=== PATIENT | male | born 1985 | race Caucasian/White ===

== ENCOUNTER 2016-06-09 18:17 | Emergency (ER) | payer OTHER ==
[2016-06-09] MEDS ORDERED: SODIUM CHLORIDE 0.9% 1,000 ML IV ONE (20:07)
[2016-06-09] MEDS ORDERED: ONDANSETRON 4 MG/2 ML VIAL IVP STA (20:08)
--- NOTE | 2016-06-09 20:11 | ED ---
Nausea/Vomiting/Diarrhea HPI - General Chief complaint: Nausea/Vomiting/Diarrhea Stated complaint: Sick Time Seen by Provider: 06/09/16 19:55 Source: patient, RN notes reviewed Mode of arrival: ambulatory Limitations: no limitations - History of Present Illness Initial comments: Patient's 30-year-old male presents emergency room for evaluation of nausea and vomiting. Patient states symptoms began around 5 AM this morning. Patient states he's been unable to keep any food down. Patient states he's been feeling very nauseous and his abdomen is very uncomfortable from nausea but denies pain. Patient denies any surgeries in his abdomen. Patient denies any fevers or chills. Patient denies constipation or diarrhea. Patient denies trouble urinating, pain or burning during urination or blood in urine. Patient denies blood in stools. Patient denies recent travel outside the country. Patient denies sick contacts. Patient denies trying any new foods. Patient denies headache or dizziness. Patient states he's had nasal congestion for the past 3 days. Patient states also had a slight dry cough. Patient denies receiving the influenza vaccine this year. Patient denies throat pain or ear pain. Patient denies chest pain or shortness of breath. - Related Data Home Medications Medication Instructions Recorded Confirmed Buprenorphine HCl/Naloxone HCl 1 film SL BID 06/09/16 06/09/16 [Suboxone 8 mg-2 mg Sl Film] busPIRone HCL [Buspar] 7.5 mg PO BID 06/09/16 06/09/16 Previous Rx's Medication Instructions Recorded Ondansetron Odt [Zofran Odt] 4 mg PO Q8HR PRN #12 tab 06/09/16 Allergies Allergy/AdvReac Type Severity Reaction Status Date / Time No Known Allergies Allergy Verified 06/09/16 20:10 Review of Systems ROS Statement: Those systems with pertinent positive or pertinent negative responses have been documented in the HPI. ROS Other: All systems not noted in ROS Statement are negative. Past Medical History Past Medical History: No Reported History Additional Past Medical History / Comment(s): L2 FRACTURE; CHRONIC BACK PAIN History of Any Multi-Drug Resistant Organisms: None Reported Additional Past Surgical History / Comment(s): bilateral knees, right shoulder Past Psychological History: Anxiety Smoking Status: Current every day smoker Past Alcohol Use History: Rare Past Drug Use History: Heroin General Exam - General Exam Comments Initial Comments: Sitting in exam room in no acute distress. Limitations: no limitations General appearance: alert, in no apparent distress Head exam: Present: atraumatic, normocephalic, normal inspection Eye exam: Present: normal appearance ENT exam: Present: normal exam Neck exam: Present: normal inspection Respiratory exam: Present: normal lung sounds bilaterally. Absent: respiratory distress Cardiovascular Exam: Present: normal rhythm, tachycardia, normal heart sounds GI/Abdominal exam: Present: soft, normal bowel sounds. Absent: distended, tenderness, guarding, rebound, rigid Extremities exam: Present: normal inspection Back exam: Present: normal inspection Neurological exam: Present: alert, oriented X3, CN II-XII intact, normal gait Psychiatric exam: Present: normal affect, normal mood Skin exam: Present: warm, dry, intact, normal color. Absent: rash Course Vital Signs 06/09/16 06/09/16 18:19 22:48 Temperature 99.0 F 98.7 F Pulse Rate 108 H 91 Respiratory 20 18 Rate Blood Pressure 145/77 136/58 O2 Sat by Pulse 99 99 Oximetry Medical Decision Making - Medical Decision Making Patient is a 30-year-old male presents emergency room for evaluation of nausea and vomiting. Labs show no concerning findings. Drug screen urinalysis significant for barbiturates, methamphetamines, benzos, cocaine and marijuana. Discussed results with patient. Discussed with patient to refrain from polysubstance abuse. Patient will be sent home with Zoan as needed. Advised patient to return for worsening symptoms. Patient states he understands everything that was discussed with him. As discussed with Dr. Amaro. - Lab Data Result diagrams: 06/09/16 20:48 06/09/16 20:48 Lab Results 06/09/16 06/09/16 06/09/16 Range/Units 20:45 20:48 20:48 WBC 8.8 (3.8-10.6) k/uL RBC 5.15 (4.30-5.90) m/uL Hgb 14.8 (13.0-17.5) gm/dL Hct 44.9 (39.0-53.0) % MCV 87.2 (80.0-100.0) fL MCH 28.7 (25.0-35.0) pg MCHC 32.9 (31.0-37.0) g/dL RDW 12.8 (11.5-15.5) % Plt Count 263 (150-450) k/uL Neutrophils % 78 % Lymphocytes % 15 % Monocytes % 4 % Eosinophils % 1 % Basophils % 0 % Neutrophils # 6.9 (1.3-7.7) k/uL Lymphocytes # 1.3 (1.0-4.8) k/uL Monocytes # 0.4 (0-1.0) k/uL Eosinophils # 0.1 (0-0.7) k/uL Basophils # 0.0 (0-0.2) k/uL Sodium 139 (137-145) mmol/L Potassium 3.7 (3.5-5.1) mmol/L Chloride 102 (98-107) mmol/L Carbon Dioxide 21 L (22-30) mmol/L Anion Gap 16 mmol/L BUN 13 (9-20) mg/dL Creatinine 0.60 L (0.66-1.25) mg/dL Est GFR (MDRD) Af Amer >60 (>60 ml/min/1.73 sqM) Est GFR (MDRD) Non-Af >60 (>60 ml/min/1.73 sqM) Glucose 144 H (74-99) mg/dL Calcium 9.2 (8.4-10.2) mg/dL Magnesium 1.7 (1.6-2.3) mg/dL Total Bilirubin 0.4 (0.2-1.3) mg/dL AST 40 (17-59) U/L ALT 59 (21-72) U/L Alkaline Phosphatase 52 (38-126) U/L Total Protein 7.3 (6.3-8.2) g/dL Albumin 4.2 (3.5-5.0) g/dL Amylase <30 L (30-110) U/L Lipase 51 (23-300) U/L Urine Color Urine Appearance (Clear) Urine pH (5.0-8.0) Ur Specific [place] (1.001-1.035) Urine Protein (Negative) Urine Glucose (UA) (Negative) Urine Ketones (Negative) Urine Blood (Negative) Urine Nitrite (Negative) Urine Bilirubin (Negative) Urine Urobilinogen (<2.0) mg/dL Ur Leukocyte Esterase (Negative) Urine WBC (0-5) /hpf Ur Squamous Epith Cells (0-4) /hpf Amorphous Sediment (None) /hpf Urine Mucus (None) /hpf Urine Opiates Screen (NotDetected) Ur Oxycodone Screen (NotDetected) Urine Methadone Screen (NotDetected) Ur Propoxyphene Screen (NotDetected) Ur Barbiturates Screen (NotDetected) U Tricyclic Antidepress (NotDetected) Ur Phencyclidine Scrn (NotDetected) Ur Amphetamines Screen (NotDetected) U Methamphetamines Scrn (NotDetected) U Benzodiazepines Scrn (NotDetected) Urine Cocaine Screen (NotDetected) U Marijuana (THC) Screen (NotDetected) Influenza Type A RNA Not Detected (Not Detectd) Influenza Type B (PCR) Not Detected (Not Detectd) 06/09/16 06/09/16 Range/Units 20:48 20:48 WBC (3.8-10.6) k/uL RBC (4.30-5.90) m/uL Hgb (13.0-17.5) gm/dL Hct (39.0-53.0) % MCV (80.0-100.0) fL MCH (25.0-35.0) pg MCHC (31.0-37.0) g/dL RDW (11.5-15.5) % Plt Count (150-450) k/uL Neutrophils % % Lymphocytes % % Monocytes % % Eosinophils % % Basophils % % Neutrophils # (1.3-7.7) k/uL Lymphocytes # (1.0-4.8) k/uL Monocytes # (0-1.0) k/uL Eosinophils # (0-0.7) k/uL Basophils # (0-0.2) k/uL Sodium (137-145) mmol/L Potassium (3.5-5.1) mmol/L Chloride (98-107) mmol/L Carbon Dioxide (22-30) mmol/L Anion Gap mmol/L BUN (9-20) mg/dL Creatinine (0.66-1.25) mg/dL Est GFR (MDRD) Af Amer (>60 ml/min/1.73 sqM) Est GFR (MDRD) Non-Af (>60 ml/min/1.73 sqM) Glucose (74-99) mg/dL Calcium (8.4-10.2) mg/dL Magnesium (1.6-2.3) mg/dL Total Bilirubin (0.2-1.3) mg/dL AST (17-59) U/L ALT (21-72) U/L Alkaline Phosphatase (38-126) U/L Total Protein (6.3-8.2) g/dL Albumin (3.5-5.0) g/dL Amylase (30-110) U/L Lipase (23-300) U/L Urine Color Yellow Urine Appearance Turbid (Clear) Urine pH 5.5 (5.0-8.0) Ur Specific [place] 1.032 (1.001-1.035) Urine Protein 1+ H (Negative) Urine Glucose (UA) 2+ H (Negative) Urine Ketones 1+ H (Negative) Urine Blood Negative (Negative) Urine Nitrite Negative (Negative) Urine Bilirubin Negative (Negative) Urine Urobilinogen <2.0 (<2.0) mg/dL Ur Leukocyte Esterase Small H (Negative) Urine WBC 6 H (0-5) /hpf Ur Squamous Epith Cells 4 (0-4) /hpf Amorphous Sediment Many H (None) /hpf Urine Mucus Many H (None) /hpf Urine Opiates Screen Not Detected (NotDetected) Ur Oxycodone Screen Not Detected (NotDetected) Urine Methadone Screen Not Detected (NotDetected) Ur Propoxyphene Screen Not Detected (NotDetected) Ur Barbiturates Screen Detected H (NotDetected) U Tricyclic Antidepress Not Detected (NotDetected) Ur Phencyclidine Scrn Not Detected (NotDetected) Ur Amphetamines Screen Not Detected (NotDetected) U Methamphetamines Scrn Detected H (NotDetected) U Benzodiazepines Scrn Detected H (NotDetected) Urine Cocaine Screen Detected H (NotDetected) U Marijuana (THC) Screen Detected H (NotDetected) Influenza Type A RNA (Not Detectd) Influenza Type B (PCR) (Not Detectd) - Radiology Data Radiology results: report reviewed, image reviewed Disposition Clinical Impression: Polysubstance abuse, Nausea and vomiting Disposition: HOME SELF-CARE Condition: Good Instructions: Acute Nausea and Vomiting (ED) Additional Instructions: Take Zofran as needed for nausea. Drink plenty of fluids. Please follow up with primary care provider in 1-2 days. If any new symptom arises or symptoms worsen, return to ER as soon as possible. Prescriptions: Ondansetron Odt [Zofran Odt] 4 mg PO Q8HR PRN #12 tab PRN Reason: Nausea Referrals: Jake Resendiz DO [Primary Care Provider] - 1-2 days Time of Disposition: 22:24
[2016-06-09 20:57] LABS: Basophils % (A) 0 %; CH 28.7; Eosinophils # (A) 0.1 k/uL (0-0.7); Eosinophils % (A) 1 %; HCT 44.9 % (39.0-53.0); HDW 2.59; HGB 14.8 gm/dL (13.0-17.5); Luc # (Auto) 0.14; Luc % (Auto) 2; Lymphocytes # (A) 1.3 k/uL (1.0-4.8); Lymphocytes % (A) 15 %; MCH 28.7 pg (25.0-35.0); MCHC 32.9 g/dL (31.0-37.0); MCV 87.2 fL (80.0-100.0); Mean Platelet Volume 7.1; Monocytes # (A) 0.4 k/uL (0-1.0); Monocytes % (A) 4 %; Neutrophils # (A) 6.9 k/uL (1.3-7.7); Neutrophils % (A) 78 %; RBC 5.15 m/uL (4.30-5.90); RDW 12.8 % (11.5-15.5); WBC 8.8 k/uL (3.8-10.6); WBC (Perox) 9.04
[2016-06-09 21:06] LABS: Amorphous Sediment,Urine Many /hpf; Appearance,Urine Turbid (Clear); Bilirubin,Urine Negative (Negative); Glucose,Urine (UA) 2+ (Negative); Ketones,Urine 1+ (Negative); Leukocyte Esterase,Urine Small (Negative); Mucus,Urine Many /hpf; Nitrite,Urine Negative (Negative); PH, Urine 5.5 (5.0-8.0); Particle Count 360590; Protein,Urine 1+ (Negative); Specific Gravity,Urine 1.032 (1.001-1.035); Squamous Epithelial Cell,Urine 4 /hpf (0-4); UA Billing (MACRO vs. MICRO) MICRO; Urobilinogen,Urine <2.0 mg/dL (<2.0); WBC,Urine 6 /hpf (0-5)
[2016-06-09 21:10] LABS: Amylase <30 U/L (30-110); Anion Gap 16 mmol/L; Calcium 9.2 mg/dL (8.4-10.2); Carbon Dioxide 21 mmol/L (22-30); Chloride 102 mmol/L (98-107); Glucose 144 mg/dL (74-99); Non-African American GFR(MDRD) >60 (>60 ml/min/1.73 sqM); Sodium 139 mmol/L (137-145); Total Bilirubin 0.4 mg/dL (0.2-1.3); Total Protein 7.3 g/dL (6.3-8.2)
[2016-06-09 21:18] LABS: Potassium 3.7 mmol/L (3.5-5.1)
[2016-06-09 21:19] LABS: ALT 59 U/L (21-72); AST 40 U/L (17-59); Alkaline Phosphatase 52 U/L (38-126); Blood Urea Nitrogen 13 mg/dL (9-20); Magnesium 1.7 mg/dL (1.6-2.3)
--- NOTE | 2016-06-09 21:56 | XR ---
EXAMINATION TYPE: XR KUB DATE OF EXAM: 06/09/2016 9:35 PM COMPARISON: NONE INDICATION: Pain vomiting TECHNIQUE: Single view abdomen upright view FINDINGS: There is a normal bowel gas pattern. Psoas margins are normal. No organomegaly is present. Two tablets are within the mid abdomen. No free air is evident. No differential air-fluid levels are present. IMPRESSION: 1. Unremarkable Abdomen
[2016-06-09 22:53] VITALS: BP 136/58; PULSE 91; RESP 18; TEMP 98.7
== END 2016-06-09 22:55 | disposition home or self-care (01) ==
LOC: EC 18:17
DX: F19.10 Other psychoactive substance abuse, uncomplicated (principal); R11.2 Nausea with vomiting, unspecified; R05 Cough; R09.81 Nasal congestion; F41.9 Anxiety disorder, unspecified; F17.200 Nicotine dependence, unspecified, uncomplicated; Z79.51 Long term (current) use of inhaled steroids; Z79.899 Other long term (current) drug therapy
CPT/HCPCS: 36415; 80053; 82150; 83690; 83735; 85025; 81001; 80306; 87502; 74000; 99284; 96374; 96361 ×2; J2405

== ENCOUNTER 2016-07-06 14:42 | Emergency (ER) | payer OTHER ==
[2016-07-06] MEDS ORDERED: ONDANSETRON 4 MG/2 ML VIAL IVP STA (15:35)
[2016-07-06] MEDS ORDERED: SODIUM CHLORIDE 0.9% 1,000 ML IV ONE (15:35)
[2016-07-06] MEDS ORDERED: ACETAMINOPHEN IV (For NPO) 1,000 MG in EMPTY BAG 1 BAG IVPB STA (15:36)
[2016-07-06 16:24] LABS: Basophils # (A) 0.1 k/uL (0-0.2); Basophils % (A) 1 %; CH 28.4; CHCM 32.9; Eosinophils # (A) 0.2 k/uL (0-0.7); Eosinophils % (A) 1 %; HCT 45.8 % (39.0-53.0); HDW 2.47; HGB 14.8 gm/dL (13.0-17.5); Immature Gran Flag Slight; Luc # (Auto) 0.16; Luc % (Auto) 1; Lymphocytes # (A) 0.6 k/uL (1.0-4.8); Lymphocytes % (A) 4 %; MCH 28.1 pg (25.0-35.0); MCHC 32.4 g/dL (31.0-37.0); MCV 86.8 fL (80.0-100.0); Mean Platelet Volume 7.3; Monocytes # (A) 0.6 k/uL (0-1.0); Monocytes % (A) 4 %; Neutrophils % (A) 90 %; RBC 5.28 m/uL (4.30-5.90); RDW 12.8 % (11.5-15.5); WBC 16.7 k/uL (3.8-10.6); WBC (Perox) 17.19
--- NOTE | 2016-07-06 16:33 | XR ---
EXAMINATION TYPE: XR chest 2V DATE OF EXAM: 07/06/2016 4:28 PM COMPARISON: 03/02/2011 INDICATION: Unresponsive acute mental status changes TECHNIQUE: Single frontal view of the chest is obtained. FINDINGS: The heart size is normal. The pulmonary vasculature is normal. There is a patchy consolidation in the right lower lobe. Correlate for pneumonia. Follow-up to [facility] is recommended. IMPRESSION: 1. Right lower lobe patchy infiltrate can be compatible with pneumonia. Follow-up is recommended.
[2016-07-06 16:35] LABS: ALT 63 U/L (21-72); AST 34 U/L (17-59); Alkaline Phosphatase 59 U/L (38-126); Anion Gap 11 mmol/L; Blood Urea Nitrogen 14 mg/dL (9-20); Calcium 9.6 mg/dL (8.4-10.2); Carbon Dioxide 22 mmol/L (22-30); Chloride 107 mmol/L (98-107); Glucose 151 mg/dL (74-99); Non-African American GFR(MDRD) >60 (>60 ml/min/1.73 sqM); Potassium 4.3 mmol/L (3.5-5.1); Sodium 140 mmol/L (137-145); Total Bilirubin 0.6 mg/dL (0.2-1.3); Total Protein 7.3 g/dL (6.3-8.2)
[2016-07-06] MEDS ORDERED: LEVOFLOXACIN 750 MG TAB PO STA (17:04)
--- NOTE | 2016-07-06 17:05 | ED ---
General Adult HPI - General Chief complaint: Nausea/Vomiting/Diarrhea Stated complaint: Vomiting Source: patient, family Mode of arrival: wheelchair Limitations: no limitations - History of Present Illness Initial comments: 30-year-old male with past medical history of heroin abuse as well as poly-pharmacy abuse presented for evaluation of overdose. His significant other was at the bedside states that he used heroin this morning at around 9:00 as well as took a handful benzos are there was no intention hurt himself but since then he has been less responsive and sleeping consistently. Patient is arousable and is able to answer questions although he immediately falls back to sleep. His significant other states that while he was sleeping he had an episode of emesis with some of it coming out of his nose. She states he did not appear to choke on it but that it just started coming out. She leaned him forward and he was able to wake up and continue blowing the rest of the spots/ emesis out of his nose and airway. After hearing her describe further this physician is unsure if it was actually emesis and whether or not it was just sputum. - Related Data Home Medications Medication Instructions Recorded Confirmed Buprenorphine HCl/Naloxone HCl 1 film SL BID 06/09/16 07/06/16 [Suboxone 8 mg-2 mg Sl Film] busPIRone HCL [Buspar] 7.5 mg PO BID 06/09/16 07/06/16 Previous Rx's Medication Instructions Recorded Ondansetron Odt [Zofran Odt] 4 mg PO Q8HR PRN #12 tab 06/09/16 Clotrimazole Topical Soln [Mycelex 1 applic TOPICAL BID #1 tube 07/06/16 Topical Soln] Clotrimazole [Lotrimin AF] 1 applic TOPICAL BID #1 tube 07/06/16 Levofloxacin [Levaquin] 750 mg PO DAILY #4 tab 07/06/16 Allergies Allergy/AdvReac Type Severity Reaction Status Date / Time No Known Allergies Allergy Verified 07/06/16 15:34 Review of Systems ROS Statement: Those systems with pertinent positive or pertinent negative responses have been documented in the HPI. ROS Other: All systems not noted in ROS Statement are negative. Constitutional: Reports: weakness (Generalized). Denies: fever, chills Eyes: Denies: eye pain, eye discharge, vision change ENT: Denies: ear pain, throat pain Respiratory: Denies: cough, dyspnea Cardiovascular: Denies: chest pain, palpitations, dyspnea on exertion, orthopnea Endocrine: Denies: fatigue, polydipsia, polyuria Gastrointestinal: Reports: nausea, vomiting. Denies: abdominal pain Genitourinary: Denies: urgency Musculoskeletal: Denies: back pain, arthralgia, myalgia Skin: Reports: rash (Behind the left ear). Denies: lesions Neurological: Denies: headache, weakness, numbness, paresthesias, confusion Psychiatric: Denies: anxiety, depression Hematological/Lymphatic: Denies: easy bleeding, easy bruising Past Medical History Past Medical History: No Reported History Additional Past Medical History / Comment(s): L2 FRACTURE; CHRONIC BACK PAIN History of Any Multi-Drug Resistant Organisms: None Reported Additional Past Surgical History / Comment(s): bilateral knees, right shoulder Past Psychological History: Anxiety Smoking Status: Current every day smoker Past Alcohol Use History: Rare Past Drug Use History: Heroin, Prescription Drug Abuse General Exam Limitations: no limitations General appearance: alert, in no apparent distress, other (Patient appears high) Head exam: Present: atraumatic, normocephalic, normal inspection Eye exam: Present: normal appearance, PERRL, EOMI. Absent: scleral icterus, conjunctival injection, periorbital swelling ENT exam: Present: normal exam, mucous membranes moist Neck exam: Present: normal inspection. Absent: tenderness, meningismus, lymphadenopathy Respiratory exam: Present: normal lung sounds bilaterally. Absent: respiratory distress, wheezes, rales, rhonchi, stridor Cardiovascular Exam: Present: regular rate, normal rhythm, normal heart sounds. Absent: systolic murmur, diastolic murmur, rubs, gallop, clicks GI/Abdominal exam: Present: soft, normal bowel sounds. Absent: distended, tenderness, guarding, rebound, rigid Rectal exam: Present: deferred Extremities exam: Present: normal inspection, full ROM, normal capillary refill. Absent: tenderness, pedal edema, joint swelling, calf tenderness Back exam: Present: normal inspection Neurological exam: Present: alert, oriented X3, CN II-XII intact, other ( Patient continues to fall asleep but when he is woken up using a 3) Psychiatric exam: Present: normal affect, normal mood Skin exam: Present: warm, dry, intact, normal color. Absent: rash Course Vital Signs 07/06/16 07/06/16 07/06/16 14:55 16:29 17:07 Temperature 101.0 F H 100.5 F H Pulse Rate 119 H 105 H 78 Respiratory 20 16 16 Rate Blood Pressure 134/73 116/59 107/74 O2 Sat by Pulse 94 L 95 98 Oximetry 07/06/16 18:22 Temperature 98.2 F Pulse Rate 78 Respiratory 20 Rate Blood Pressure 115/56 O2 Sat by Pulse 98 Oximetry EKG Findings - EKG Comments: EKG Findings:: Sinus tachycardia with a ventricular rate of 106, TAMANNA 142, QRS 98 , QT/QTC 322/427 Medical Decision Making - Medical Decision Making 30-year-old male presented for evaluation of heroin abuse and decreased responsiveness. His significant other states that he use this morning as well as took some benzos and has been less responsive since. There is also an episode of him blowing significant amounts of sputum and snot out of his nose. On physical examination the patient does appear to be sleeping in the bed but when stimulated he is able to wake up and answer all questions appropriately however he immediately falls back asleep. Her main or of his physical exam is benign with the exception of a rash behind his left ear. Given that the patient is protecting his own airway there is no indication to give Narcan at this time. We'll obtain EKG, chest x-ray, labs, and provide IV fluids. Labs revealed a leukocytosis of 16.7. Otherwise no significant abnormalities. Chest x-ray shows a right lower lobe patchy infiltrate can be compatible with pneumonia. Patient treated with his first dose of antibiotic here in the department and he was gone up from the bed and walked around the department without difficulty. Patient and his significant other were offered admission versus discharge and through shared decision making it was determined that he would be discharged with instruction to follow-up with his primary care physician but to return to this facility if his symptoms should worsen or persist. The patient acknowledged an understanding of this information as that his significant other and agreed with this plan of care. - Lab Data Result diagrams: 07/06/16 16:00 07/06/16 16:00 Lab Results 07/06/16 07/06/16 07/06/16 Range/Units 16:00 16:00 16:00 WBC 16.7 H (3.8-10.6) k/uL RBC 5.28 (4.30-5.90) m/uL Hgb 14.8 (13.0-17.5) gm/dL Hct 45.8 (39.0-53.0) % MCV 86.8 (80.0-100.0) fL MCH 28.1 (25.0-35.0) pg MCHC 32.4 (31.0-37.0) g/dL RDW 12.8 (11.5-15.5) % Plt Count 243 (150-450) k/uL Neutrophils % 90 % Lymphocytes % 4 % Monocytes % 4 % Eosinophils % 1 % Basophils % 1 % Neutrophils # 15.0 H (1.3-7.7) k/uL Lymphocytes # 0.6 L (1.0-4.8) k/uL Monocytes # 0.6 (0-1.0) k/uL Eosinophils # 0.2 (0-0.7) k/uL Basophils # 0.1 (0-0.2) k/uL Sodium 140 (137-145) mmol/L Potassium 4.3 (3.5-5.1) mmol/L Chloride 107 (98-107) mmol/L Carbon Dioxide 22 (22-30) mmol/L Anion Gap 11 mmol/L BUN 14 (9-20) mg/dL Creatinine 0.90 (0.66-1.25) mg/dL Est GFR (MDRD) Af Amer >60 (>60 ml/min/1.73 sqM) Est GFR (MDRD) Non-Af >60 (>60 ml/min/1.73 sqM) Glucose 151 H (74-99) mg/dL Plasma Lactic Acid Prashanth 2.0 (0.7-2.0) mmol/L Calcium 9.6 (8.4-10.2) mg/dL Total Bilirubin 0.6 (0.2-1.3) mg/dL AST 34 (17-59) U/L ALT 63 (21-72) U/L Alkaline Phosphatase 59 (38-126) U/L Total Protein 7.3 (6.3-8.2) g/dL Albumin 4.0 (3.5-5.0) g/dL Lipase 57 (23-300) U/L Disposition Clinical Impression: Pneumonia, Heroin abuse, Polysubstance abuse, Nausea and vomiting Disposition: HOME SELF-CARE Condition: Stable Instructions: Community Acquired Pneumonia (ED), Narcotic Abuse (ED) Additional Instructions: Please use medication as discussed. Please follow up with family doctor if symptoms have not improved over the next two days. Please return to the emergency room if your symptoms increase or worsen or for any other concerns. Prescriptions: Clotrimazole [Lotrimin AF] 1 applic TOPICAL BID #1 tube Clotrimazole Topical Soln [Mycelex Topical Soln] 1 applic TOPICAL BID #1 tube Levofloxacin [Levaquin] 750 mg PO DAILY #4 tab Referrals: Jake Resendiz DO [Primary Care Provider] - 1-2 days Time of Disposition: 17:05
[2016-07-06 17:08] VITALS: PULSE 78
[2016-07-06 18:23] VITALS: BP 115/56; RESP 20; TEMP 98.2
== END 2016-07-06 18:23 | disposition home or self-care (01) ==
LOC: EC 14:42
DX: J18.9 Pneumonia, unspecified organism (principal); F19.10 Other psychoactive substance abuse, uncomplicated; R11.2 Nausea with vomiting, unspecified; F11.10 Opioid abuse, uncomplicated; F41.9 Anxiety disorder, unspecified; F17.200 Nicotine dependence, unspecified, uncomplicated; Z79.899 Other long term (current) drug therapy
CPT/HCPCS: 99284; 96365; 96375; 36415; 93005; 80053; 83605; 83690; 85025; 71020; J2405; J0131

== ENCOUNTER 2016-09-19 17:50 | Emergency (ER) | payer OTHER ==
[2016-09-19] MEDS ORDERED: SODIUM CHLORIDE 0.9% 1,000 ML IV STA (18:04)
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
[2016-09-19 19:02] LABS: ALT 47 U/L (21-72); AST 25 U/L (17-59); Acetaminophen <10.0 ug/mL; Alcohol <10 mg/dL; Alkaline Phosphatase 73 U/L (38-126); Anion Gap 11 mmol/L; Blood Urea Nitrogen 12 mg/dL (9-20); Calcium 9.4 mg/dL (8.4-10.2); Carbon Dioxide 26 mmol/L (22-30); Chloride 109 mmol/L (98-107); Glucose 78 mg/dL (74-99); Non-African American GFR(MDRD) >60 (>60 ml/min/1.73 sqM); Potassium 3.9 mmol/L (3.5-5.1); Salicylate <1.0 mg/dL; Sodium 146 mmol/L (137-145); Total Bilirubin 0.4 mg/dL (0.2-1.3); Total Protein 7.4 g/dL (6.3-8.2)
[2016-09-19 19:04] LABS: Basophils # (A) 0.1 k/uL (0-0.2); Basophils % (A) 1 %; CH 28.4; CHCM 34.2; Eosinophils # (A) 0.3 k/uL (0-0.7); Eosinophils % (A) 4 %; HCT 42.9 % (39.0-53.0); HDW 2.78; HGB 14.8 gm/dL (13.0-17.5); Luc # (Auto) 0.35; Luc % (Auto) 4; Lymphocytes # (A) 2.6 k/uL (1.0-4.8); Lymphocytes % (A) 34 %; MCH 28.8 pg (25.0-35.0); MCHC 34.5 g/dL (31.0-37.0); MCV 83.5 fL (80.0-100.0); Mean Platelet Volume 7.5; Monocytes # (A) 0.6 k/uL (0-1.0); Monocytes % (A) 7 %; Neutrophils # (A) 3.9 k/uL (1.3-7.7); Neutrophils % (A) 50 %; RBC 5.14 m/uL (4.30-5.90); RDW 13.6 % (11.5-15.5); WBC 7.8 k/uL (3.8-10.6); WBC (Perox) 7.72
--- NOTE | 2016-09-19 19:11 | CT ---
EXAMINATION TYPE: CT brain scoobyine wo con DATE OF EXAM: 09/19/2016 COMPARISON: 11/05/2013 HISTORY: Fall injury yesterday. Laceration to left zygoma area. CT DLP: 1259.6 mGycm Automated exposure control for dose reduction was used. TECHNIQUE: CT scan of the head and cervical spine are performed without contrast. FINDINGS: Ventricles and sulci appear normal. There is no mass effect nor midline shift. There is n o sign of intracranial hemorrhage. The calvarium is intact. The cervical vertebra have normal spacing and alignment. Posterior elements are intact. Facet joints are intact. There is no sign of a fracture. IMPRESSION: Negative CT scan of the brain. Negative CT scan of the cervical spine.
--- NOTE | 2016-09-19 19:14 | CT ---
EXAMINATION TYPE: CT facial bones wo con DATE OF EXAM: 09/19/2016 COMPARISON: NONE HISTORY: Fall injury yesterday. Laceration to left zygoma area. CT DLP: 581.4 mGycm Automated exposure control for dose reduction was used. TECHNIQUE: CT scan of the sinuses is performed without contrast, axial images are obtained, coronal r eformatted images are also reviewed. FINDINGS: The mandibular ring appears intact. Nasal bone appears intact. Zygomatic arches appear norm al. There is no evidence of retro-orbital mass. There is no sign of a blowout fracture. There is a sm all mucous retention cyst at the floor of the left maxillary sinus. Maxilla is intact. The lateral so ft tissues of the face are not entirely included on this exam. There is bilateral patency of the osti omeatal complex. IMPRESSION: Negative CT scan of the facial bones. No fracture.
--- NOTE | 2016-09-19 20:13 | ED ---
Medical Decision Making - Medical Decision Making Patient was going to sign out AMA but he decided last minute not to. At this time he did stay for results. We did discuss the x-ray results. We did give him information for follow-up for drug addiction. Patient stated that he understood he is agreement plan. Patient is alert and oriented in the room speaking full sentences. Mother is with the patient at bedside and they do feel comfortable with discharge. - Lab Data Result diagrams: 09/19/16 18:40 09/19/16 18:40 Lab Results 09/19/16 09/19/16 09/19/16 Range/Units 18:40 18:40 18:52 WBC 7.8 (3.8-10.6) k/uL RBC 5.14 (4.30-5.90) m/uL Hgb 14.8 (13.0-17.5) gm/dL Hct 42.9 (39.0-53.0) % MCV 83.5 (80.0-100.0) fL MCH 28.8 (25.0-35.0) pg MCHC 34.5 (31.0-37.0) g/dL RDW 13.6 (11.5-15.5) % Plt Count 281 (150-450) k/uL Neutrophils % 50 % Lymphocytes % 34 % Monocytes % 7 % Eosinophils % 4 % Basophils % 1 % Neutrophils # 3.9 (1.3-7.7) k/uL Lymphocytes # 2.6 (1.0-4.8) k/uL Monocytes # 0.6 (0-1.0) k/uL Eosinophils # 0.3 (0-0.7) k/uL Basophils # 0.1 (0-0.2) k/uL Sodium 146 H (137-145) mmol/L Potassium 3.9 (3.5-5.1) mmol/L Chloride 109 H (98-107) mmol/L Carbon Dioxide 26 (22-30) mmol/L Anion Gap 11 mmol/L BUN 12 (9-20) mg/dL Creatinine 0.86 (0.66-1.25) mg/dL Est GFR (MDRD) Af Amer >60 (>60 ml/min/1.73 sqM) Est GFR (MDRD) Non-Af >60 (>60 ml/min/1.73 sqM) Glucose 78 (74-99) mg/dL Calcium 9.4 (8.4-10.2) mg/dL Total Bilirubin 0.4 (0.2-1.3) mg/dL AST 25 (17-59) U/L ALT 47 (21-72) U/L Alkaline Phosphatase 73 (38-126) U/L Total Protein 7.4 (6.3-8.2) g/dL Albumin 4.3 (3.5-5.0) g/dL Salicylates <1.0 mg/dL Urine Opiates Screen Detected H (NotDetected) Ur Oxycodone Screen Not Detected (NotDetected) Urine Methadone Screen Not Detected (NotDetected) Ur Propoxyphene Screen Not Detected (NotDetected) Acetaminophen <10.0 ug/mL Ur Barbiturates Screen Not Detected (NotDetected) U Tricyclic Antidepress Not Detected (NotDetected) Ur Phencyclidine Scrn Not Detected (NotDetected) Ur Amphetamines Screen Detected H (NotDetected) U Methamphetamines Scrn Detected H (NotDetected) U Benzodiazepines Scrn Detected H (NotDetected) Urine Cocaine Screen Not Detected (NotDetected) U Marijuana (THC) Screen Detected H (NotDetected) Serum Alcohol <10 mg/dL Disposition Clinical Impression: Drug abuse, Facial contusion Disposition: HOME SELF-CARE Condition: Stable Instructions: Polysubstance Abuse (ED) Additional Instructions: Please follow up with family doctor if symptoms have not improved over the next two days. Please return to the emergency room if your symptoms increase or worsen or for any other concerns. Referrals: Jake Resendiz DO [Primary Care Provider] - 1-2 days Time of Disposition: 20:13
[2016-09-19 20:25] VITALS: BP 125/58; PULSE 107; RESP 16; TEMP 98
== END 2016-09-19 20:37 | disposition home or self-care (01) ==
LOC: EC 17:50
DX: F11.10 Opioid abuse, uncomplicated (principal); S00.83XA Contusion of other part of head, initial encounter; W51.XXXA Accidental striking against or bumped into by another person, initial encounter
CPT/HCPCS: 36415; 70450; 70486; 72125; 80053; 80306; 80320; 83520; 85025; 96360; 96361; 99284

== ENCOUNTER 2017-12-25 08:58 | Emergency (ER) | payer OTHER ==
--- NOTE | 2017-12-25 09:25 | ED ---
Psych HPI - General Chief Complaint: Psychiatric Symptoms Stated Complaint: mental health Time Seen by Provider: 12/25/17 09:10 Source: patient, RN notes reviewed Mode of arrival: ambulatory Limitations: no limitations - History of Present Illness Initial Comments: this a 32-year-old male presents emergency Department chief complaint psychiatric evaluation. Patient was picked up on car ordered petition filled out by his mother. Patient states that he does not believe this is his mother' s signature or discharge, some signature. Patient states he has not made any threats though he has been in arguments with his girlfriend and mother. Patient states he has no suicidal or homicidal ideations. Patient denies any physical complaints. Patient states that he does take Xanax and is a history of drug abuse. Denies any alcohol abuse. - Related Data Home Medications Medication Instructions Recorded Confirmed ALPRAZolam [Xanax] 1 mg PO DAILY 12/25/17 12/25/17 Allergies Allergy/AdvReac Type Severity Reaction Status Date / Time No Known Allergies Allergy Verified 12/25/17 10:03 Review of Systems ROS Statement: Those systems with pertinent positive or pertinent negative responses have been documented in the HPI. ROS Other: All systems not noted in ROS Statement are negative. Past Medical History Past Medical History: No Reported History Additional Past Medical History / Comment(s): L2 FRACTURE; CHRONIC BACK PAIN History of Any Multi-Drug Resistant Organisms: None Reported Additional Past Surgical History / Comment(s): bilateral knees, right shoulder Past Psychological History: Anxiety Smoking Status: Current every day smoker Past Alcohol Use History: Rare Past Drug Use History: Heroin, Prescription Drug Abuse General Exam Limitations: no limitations General appearance: alert, in no apparent distress Head exam: Present: atraumatic, normocephalic, normal inspection Eye exam: Present: normal appearance, PERRL, EOMI. Absent: scleral icterus, conjunctival injection, periorbital swelling ENT exam: Present: normal exam, mucous membranes moist Neck exam: Present: normal inspection. Absent: tenderness, meningismus, lymphadenopathy Respiratory exam: Present: normal lung sounds bilaterally. Absent: respiratory distress, wheezes, rales, rhonchi, stridor Cardiovascular Exam: Present: normal rhythm, tachycardia, normal heart sounds. Absent: systolic murmur, diastolic murmur, rubs, gallop, clicks GI/Abdominal exam: Present: soft, normal bowel sounds. Absent: distended, tenderness, guarding, rebound, rigid Neurological exam: Present: alert, oriented X3, CN II-XII intact Psychiatric exam: Present: anxious Course Vital Signs 12/25/17 09:06 Temperature 98.2 F Pulse Rate 116 H Respiratory 18 Rate Blood Pressure 130/83 O2 Sat by Pulse 99 Oximetry Medical Decision Making - Medical Decision Making 32-year-old male presents emergency from for psychiatric evaluation and ankle or petition. He was evaluated by EPS case discussed with psychiatrist psychiatrist recommends patient to be discharged. Patient does have mild paranoia though this is most likely drug-induced. Patient is not suicidal or homicidal and will be discharged. Disposition Clinical Impression: Acute anxiety, Paranoia Disposition: HOME SELF-CARE Condition: Stable Instructions: Anxiety (ED) Additional Instructions: Please return to the Emergency Department if symptoms worsen or any other concerns. Is patient prescribed a controlled substance at d/c from ED?: No Referrals: Jake Resendiz DO [Primary Care Provider] - 1-2 days Time of Disposition: 12:15
[2017-12-25 12:22] VITALS: BP 143/89; PULSE 111; RESP 19; TEMP 96.4
== END 2017-12-25 12:23 | disposition home or self-care (01) ==
LOC: EC 08:58
DX: F22 Delusional disorders (principal); F41.9 Anxiety disorder, unspecified; F17.200 Nicotine dependence, unspecified, uncomplicated; Z79.899 Other long term (current) drug therapy
CPT/HCPCS: 82075; 99284

== ENCOUNTER 2017-12-31 12:54 | Inpatient (IN) | payer MEDICAID, OTHER ==
--- NOTE | 2017-12-31 13:39 | ED ---
General Adult HPI - General Chief complaint: Psychiatric Symptoms Stated complaint: Mental Health /petition Time Seen by Provider: 12/31/17 13:00 Source: patient, police, RN notes reviewed Mode of arrival: ambulatory Limitations: no limitations - History of Present Illness Initial comments: This is a 32-year-old male who has been brought in under a petition because he' s been delusional. Patient does state that there has been somewhat up in the attic and no one will tell was living in the attic. Patient also believes that either his mother and girlfriend has a lottery ticket were $[id number]. Patient states no one will tell him where the money is. Patient states he does think there are people after him but he doesn't know who they are. Patient denies any suicidal homicidal thoughts. Patient denies any drug use or alcohol use. Patient denies any physical complaints today. - Related Data Home Medications Medication Instructions Recorded Confirmed Cholecalciferol (Vitamin D3) 2,000 unit PO DAILY 12/31/17 12/31/17 [Vitamin D3] Multivitamins, Thera [Multivitamin 1 tab PO DAILY 12/31/17 12/31/17 (formulary)] Allergies Allergy/AdvReac Type Severity Reaction Status Date / Time No Known Allergies Allergy Verified 12/31/17 13:22 Review of Systems ROS Statement: Those systems with pertinent positive or pertinent negative responses have been documented in the HPI. ROS Other: All systems not noted in ROS Statement are negative. Past Medical History Past Medical History: No Reported History Additional Past Medical History / Comment(s): L2 FRACTURE; CHRONIC BACK PAIN History of Any Multi-Drug Resistant Organisms: None Reported Additional Past Surgical History / Comment(s): bilateral knees, right shoulder Past Psychological History: Anxiety Smoking Status: Current every day smoker Past Alcohol Use History: Rare Past Drug Use History: Heroin, Prescription Drug Abuse General Exam - General Exam Comments Initial Comments: GENERAL: Patient is well-developed and well-nourished. Patient is nontoxic and well- hydrated and is in mild distress. ENT: Neck is soft and supple. No significant lymphadenopathy is noted. Oropharynx is clear. Moist mucous membranes. Neck has full range of motion without eliciting any pain. EYES: The sclera were anicteric and conjunctiva were pink and moist. Extraocular movements were intact and pupils were equal round and reactive to light. Eyelids were unremarkable. PULMONARY: Unlabored respirations. Good breath sounds bilaterally. No audible rales rhonchi or wheezing was noted. CARDIOVASCULAR: There is a regular rate and rhythm without any murmurs gallops or rubs. ABDOMEN: Soft and nontender with normal bowel sounds. No palpable organomegaly was noted. There is no palpable pulsatile mass. SKIN: Skin is clear with no lesions or rashes and otherwise unremarkable. NEUROLOGIC: Patient is alert and oriented x3. Cranial nerves II through XII are grossly intact. Motor and sensory are also intact. Normal speech, volume and content. Symmetrical smile. MUSCULOSKELETAL: Normal extremities with adequate strength and full range of motion. LYMPHATICS: No significant lymphadenopathy is noted PSYCHIATRIC: Normal psychiatric evaluation. Normal interpersonal interactions appears functionally intact in deals appropriately with others. No signs of depression. No signs of anxiety. Limitations: no limitations Course Vital Signs 12/31/17 12:56 Temperature 98.2 F Pulse Rate 101 H Respiratory 20 Rate Blood Pressure 141/93 O2 Sat by Pulse 98 Oximetry Medical Decision Making - Lab Data Result diagrams: 01/01/18 09:30 01/01/18 09:30 Lab Results 12/31/17 Range/Units 15:55 Urine Opiates Screen Not Detected (NotDetected) Ur Oxycodone Screen Not Detected (NotDetected) Urine Methadone Screen Not Detected (NotDetected) Ur Propoxyphene Screen Not Detected (NotDetected) Ur Barbiturates Screen Not Detected (NotDetected) U Tricyclic Antidepress Not Detected (NotDetected) Ur Phencyclidine Scrn Not Detected (NotDetected) Ur Amphetamines Screen Detected H (NotDetected) U Methamphetamines Scrn Detected H (NotDetected) U Benzodiazepines Scrn Detected H (NotDetected) Urine Cocaine Screen Not Detected (NotDetected) U Marijuana (THC) Screen Detected H (NotDetected) Disposition Clinical Impression: Methamphetamine abuse Disposition: HOME SELF-CARE Time of Disposition: 15:18
[2017-12-31 16:35] LABS: Urn Cannabinoid Scrn Detected (NotDetected)
[2017-12-31 16:36] LABS: Amphetamine Screen,Urine Detected (NotDetected); Barbiturate Screen,Urine Not Detected (NotDetected); Benzodiazepines Screen,Urine Detected (NotDetected); Cocaine Screen,Urine Not Detected (NotDetected); Methadone Screen, Urine Not Detected (NotDetected); Opiate Screen,Urine Not Detected (NotDetected); Oxycodone Screen, Urine Not Detected (NotDetected); Phencyclidine Screen,Urine Not Detected (NotDetected); Tricyclic Antidepressant,Urine Not Detected (NotDetected)
[2017-12-31] MEDS ORDERED: MAGNESIUM HYDROXIDE 2,400 MG/10 ML CUP PO PRN (17:56)
[2017-12-31] MEDS ORDERED: ACETAMINOPHEN TAB 325 MG TAB PO PRN (17:56)
[2017-12-31] MEDS ORDERED: LORazepam 1 MG TAB PO PRN (17:56)
[2017-12-31] MEDS ORDERED: MAG HYDROX/AL HYDROX/SIMETH 30 ML CUP PO PRN (17:56)
[2017-12-31] MEDS ORDERED: ZIPRASIDONE 20 MG VIAL IM PRN (17:56)
[2017-12-31] MEDS: NICOTINE 14MG/24HR PATCH TRANSDERM SCH (20:19)
--- NOTE | 2018-01-01 06:59 | P.MDCNMH ---
History of Present Illness H&P Date: 01/01/18 Chief Complaint: Medical evaluation 32-year-old male with history of depression and anxiety Patient was petitioned by his mother for psychiatric evaluation due to delusional thoughts. He denies hearing voices or any visual hallucinations denies any suicidal or homicidal ideation. Per the mother he's been locked up in the attic and he believes that either his mom or his girlfrined has won big [employer] ticket and would not share with them He currently denies any medical complaints, denies any fevers chills headache nausea vomiting cough short trouble breathing chest pain abdominal pain or any GI bleeding Review of Systems Pertinent positives as noted in HPI. All other systems were reviewed and are negative Past Medical History Past Medical History: No Reported History Additional Past Medical History / Comment(s): L2 FRACTURE; CHRONIC BACK PAIN History of Any Multi-Drug Resistant Organisms: None Reported Additional Past Surgical History / Comment(s): bilateral knees, right shoulder Smoking Status: Current every day smoker Medications and Allergies Home Medications Medication Instructions Recorded Confirmed Type Cholecalciferol (Vitamin D3) 2,000 unit PO DAILY 12/31/17 12/31/17 History [Vitamin D3] Multivitamins, Thera [Multivitamin 1 tab PO DAILY 12/31/17 12/31/17 History (formulary)] Allergies Allergy/AdvReac Type Severity Reaction Status Date / Time No Known Allergies Allergy Verified 12/31/17 13:22 Physical Exam Vitals: Vital Signs Temp Pulse Pulse Resp BP BP Pulse Ox 12/31/17 18:12 97.9 F 118 H 20 121/81 98 12/31/17 12:56 98.2 F 101 H 20 141/93 98 Intake and Output 12/31/17 12/31/17 12/31/17 06:59 14:59 22:59 Other: Weight 83.915 kg 75.5 kg Constitutional: No acute distress, conversant, pleasant Eyes: Anicteric sclerae, moist conjunctiva, no lid-lag Pupils equal round reactive to light ENMT: NC/AT Oropharynx clear, no erythema, exudates Neck: Supple, FROM, no masses, or JVD No carotid bruits No thyromegaly Lungs: Clear to auscultation Clear to percussion Normal respiratory effort, no accessory muscle use Cardiovascular: Heart regular in rate and rhythm, No murmurs, gallops, or rubs No peripheral edema Abdominal: Soft Nontender, no guarding, rebound or rigidity Abdomen moving with respiration Normoactive bowel sounds No hepatomegaly, No splenomegaly No palpable mass No abdominal wall hernia noted Skin: Normal temperature, tone, texture, turgor No induration No subcutaneous nodules No rash, lesions No ulcers Extremities: No digital cyanosis No clubbing Pedal pulses intact and symmetrical Radial pulses intact and symmetrical No calf tenderness Psychiatric: Alert and oriented to person, place and time Appropriate affect Poor judgment Neuro Muscles Strength 5/5 in all 4 extremities Sensation to light touch grossly present throughout Cranial nerves II-XII grossly intact No focal sensory deficits Lymphatics: no palpable cervical or supraclavicular , or inguinal lymph nodes Cranial Nerve Examination - Cranial Nerves Cranial Nerve II- Optic: Intact Cranial Nerve III- Oculomotor: Intact Cranial Nerve IV- Trochlear: Intact Cranial Nerve V- Trigeminal: Intact Cranial Nerve - Abducens: Intact Cranial Nerve VII- Facial: Intact Cranial Nerve VIII- Auditory: Intact Cranial Nerve IX- Glossopharyngeal: Intact Cranial Nerve X- Vagus: Intact Cranial Nerve XI- Accessory: Intact Cranial Nerve XII- Hypoglossal: Intact Results Labs: Abnormal Lab Results - Last 24 Hours (Table) 12/31/17 Range/Units 15:55 Ur Amphetamines Screen Detected H (NotDetected) U Methamphetamines Scrn Detected H (NotDetected) U Benzodiazepines Scrn Detected H (NotDetected) U Marijuana (THC) Screen Detected H (NotDetected) Assessment and Plan Assessment: 32-year-old male admitted for psychiatric evaluation due to delusional thoughts and so was consulted for medical evaluation currently denies any homicidal or suicidal ideation and denies any medical complaints. Plan: History of depression and anxiety Delusional thoughts Psychiatry evaluation Tobacco smoking Counseled to quit smoking Nicotine replacement therapy offered Methamphetamine abuse Patient counseled to avoid drug of abuse DVT prophylaxis patient is low risk and ambulatory Thank you for allowing us to participate in the care of this patient. We will follow peripherally. Do not hesitate to contact us with questions. Someone can be reached from the [facility] hospitalist group at all hours of the day at [phone].
[2018-01-01] MEDS: NICOTINE 14MG/24HR PATCH TRANSDERM SCH (09:20)
[2018-01-01] MEDS: MULTIVITAMINS, THERA 1 EACH TAB PO SCH (09:20)
[2018-01-01] MEDS: CHOLECALCIFEROL 1,000 UNIT TAB PO SCH (09:20)
[2018-01-01 09:52] LABS: Basophils # (A) 0.1 k/uL (0-0.2); Basophils % (A) 0 %; Eosinophils # (A) 0.4 k/uL (0-0.7); Eosinophils % (A) 4 %; HCT 52.8 % (39.0-53.0); HGB 16.7 gm/dL (13.0-17.5); Lymphocytes # (A) 2.4 k/uL (1.0-4.8); Lymphocytes % (A) 20 %; MCH 28.8 pg (25.0-35.0); MCHC 31.6 g/dL (31.0-37.0); MCV 91.3 fL (80.0-100.0); Mean Platelet Volume 7.2; Monocytes # (A) 0.6 k/uL (0-1.0); Monocytes % (A) 5 %; Neutrophils # (A) 8.1 k/uL (1.3-7.7); Neutrophils % (A) 70 %; Platelet Count 320 k/uL (150-450); RBC 5.78 m/uL (4.30-5.90); RDW 13.6 % (11.5-15.5); WBC 11.7 k/uL (3.8-10.6)
[2018-01-01 10:26] LABS: ALT 56 U/L (21-72); AST 29 U/L (17-59); Albumin 4.4 g/dL (3.5-5.0); Alkaline Phosphatase 51 U/L (38-126); Anion Gap 7 mmol/L; Blood Urea Nitrogen 16 mg/dL (9-20); Calcium 10.5 mg/dL (8.4-10.2); Carbon Dioxide 31 mmol/L (22-30); Chloride 105 mmol/L (98-107); Glucose 93 mg/dL (74-99); Potassium 5.2 mmol/L (3.5-5.1); Sodium 143 mmol/L (137-145); Total Bilirubin 0.6 mg/dL (0.2-1.3); Total Protein 7.4 g/dL (6.3-8.2)
--- NOTE | 2018-01-01 10:34 | P.HP ---
Psychiatric H&P - . H&P Date: 01/01/18 History & Physical: Allergies Allergy/AdvReac Type Severity Reaction Status Date / Time No Known Allergies Allergy Verified 12/31/17 13:22 Vital Signs Temp 97.9 F 01/01/18 06:32 Pulse 73 01/01/18 06:32 Resp 16 01/01/18 06:32 BP 116/64 01/01/18 06:32 Pulse Ox 98 12/31/17 18:12 Intake & Output 12/31/17 01/01/18 01/01/18 18:59 06:59 18:59 Weight 75.5 kg Laboratory Last Values WBC 11.7 k/uL (3.8-10.6) H 01/01/18 09:30 RBC 5.78 m/uL (4.30-5.90) 01/01/18 09:30 Hgb 16.7 gm/dL (13.0-17.5) 01/01/18 09:30 Hct 52.8 % (39.0-53.0) 01/01/18 09:30 MCV 91.3 fL (80.0-100.0) 01/01/18 09:30 MCH 28.8 pg (25.0-35.0) 01/01/18 09:30 MCHC 31.6 g/dL (31.0-37.0) 01/01/18 09:30 RDW 13.6 % (11.5-15.5) 01/01/18 09:30 Plt Count 320 k/uL (150-450) 01/01/18 09:30 Neutrophils % 70 % 01/01/18 09:30 Lymphocytes % 20 % 01/01/18 09:30 Monocytes % 5 % 01/01/18 09:30 Eosinophils % 4 % 01/01/18 09:30 Basophils % 0 % 01/01/18 09:30 Neutrophils # 8.1 k/uL (1.3-7.7) H 01/01/18 09:30 Lymphocytes # 2.4 k/uL (1.0-4.8) 01/01/18 09:30 Monocytes # 0.6 k/uL (0-1.0) 01/01/18 09:30 Eosinophils # 0.4 k/uL (0-0.7) 01/01/18 09:30 Basophils # 0.1 k/uL (0-0.2) 01/01/18 09:30 Urine Opiates Screen Not Detected (NotDetected) 12/31/17 15:55 Ur Oxycodone Screen Not Detected (NotDetected) 12/31/17 15:55 Urine Methadone Screen Not Detected (NotDetected) 12/31/17 15:55 Ur Propoxyphene Screen Not Detected (NotDetected) 12/31/17 15:55 Ur Barbiturates Screen Not Detected (NotDetected) 12/31/17 15:55 U Tricyclic Antidepress Not Detected (NotDetected) 12/31/17 15:55 Ur Phencyclidine Scrn Not Detected (NotDetected) 12/31/17 15:55 Ur Amphetamines Screen Detected (NotDetected) H 12/31/17 15:55 U Methamphetamines Scrn Detected (NotDetected) H 12/31/17 15:55 U Benzodiazepines Scrn Detected (NotDetected) H 12/31/17 15:55 Urine Cocaine Screen Not Detected (NotDetected) 12/31/17 15:55 U Marijuana (THC) Screen Detected (NotDetected) H 12/31/17 15:55 Assessment and Plan Assessment: this a 32-year-old male presents emergency Department chief complaint psychiatric evaluation. Patient was picked up on car ordered petition filled out by his mother. Patient states that he does not believe this is his mother' s signature or discharge, some signature. Patient states he has not made any threats though he has been in arguments with his girlfriend and mother. Patient states he has no suicidal or homicidal ideations. Patient denies any physical complaints. Patient states that he does take Xanax and is a history of drug abuse. Denies any alcohol abuse. History of depression and anxiety Delusional thoughts Psychiatry evaluation Tobacco smoking Counseled to quit smoking Nicotine replacement therapy offered Methamphetamine abuse Patient counseled to avoid drug of abuse Past Medical History Past Medical History: No Reported History Additional Past Medical History / Comment(s): L2 FRACTURE; CHRONIC BACK PAIN History of Any Multi-Drug Resistant Organisms: None Reported Additional Past Surgical History / Comment(s): bilateral knees, right shoulder Past Psychological History: Anxiety Smoking Status: Current every day smoker Past Alcohol Use History: Rare Past Drug Use History: Heroin, Prescription Drug Abuse Musculoskeletal Examination - Abnormal/Involuntary Movements: [none Strength: [greater than antigravity (greater than/equal to 3/5) in all extremities] Muscle Tone: [no impairment] Gait: [grossly normal] Station: [grossly normal] Mental Status Examination - General Appearance: [ casual, bizarre, appears stated age Speech/Language: [spontaneous, slow Attitude/Behavior: [cooperative, guarded, withdrawn, indifferent] Mood: [ depressed, anxious, fearful, hopelessness Affect: [ flat, blunted constricted Orientation: [time, person, place situation] Thought Content: [ delusions Risk Factors: [Had thoughts of suicidal (ideations, plan) Perception: [wnl, hallucinations (auditory Thought Processes: [concrete, circumstantial, tangential] Concentration/Attention Span: [ impaired] [Per observation and interview with the patient] Recent Memory: [impaired] [ 1out of 3 in 3 minutes] Remote Memory: [wnl] [past events, as related history] Intelligence: [average] [based on history, based on vocabulary, syntax, grammar , and content] Judgement: [fair] [per patient's behavior/history of present illness] Insight: [fair] [understanding severity of illness/history of present illness] Admitting Diagnosis: [Bipolar affective disorder with influence of psychoactive substances causing a mood disorder] Patient Strengths - Personal Skills: [x] Housing stability: [x] Able to vocalize needs: [x] Motivation, determination, readiness for change: [x Patient Limitations: [medication, non-compliance, pathological/unsupported environment Initial Plan of Care: [Patient be admitted to the care of her health unit and observation for withdrawal from psychoactive drugs including amphetamines will be observed and him be placed on close observation and suicide watch every 15 minutes. He'll be served by nursing staff, psychiatry, medicine, social work and recreational therapy. He'll be integrated and a mclean milieu therapeutic environment whereby observation of his dynamics within this milieu environment will be observed and titration of medicines to resolution of the symptoms.] Estimated Length of Stay: [5-7] Initial Discharge Plan: [home, [facility], referred to therapist Prognosis: [good] Justification for Inpatient Hospitalization - [ delusions, agitation, anxiety, depression resulting in significant loss of functioning.] [Dangerous to self, others, or property with need for controlled environment.] [Emotional or behavioral conditions and complications requiring 24 hour medical and nursing care.] [Need for special drug therapy, or other therapeutic program requiring continuous hospitalization.] [Failure of social or occupational functioning.] [Inability to meet basic life and health needs.] [ Time with Patient: Less than 30
[2018-01-01 17:32] LABS: Appearance,Urine Clear (Clear); Bilirubin,Urine Negative (Negative); Blood,Urine Negative (Negative); Color,Urine Light Yellow; Glucose,Urine (UA) Negative (Negative); Ketones,Urine Negative (Negative); Leukocyte Esterase,Urine Moderate (Negative); Mucus,Urine Rare /hpf; Nitrite,Urine Negative (Negative); Protein,Urine Negative (Negative); RBC,Urine <1 /hpf (0-5); Specific Gravity,Urine 1.012 (1.001-1.035); Urobilinogen,Urine <2.0 mg/dL (<2.0); WBC,Urine 20 /hpf (0-5)
[2018-01-01] MEDS ORDERED: PALIPERIDONE 3 MG TAB.ER.24 PO SCH (21:00)
[2018-01-01] MEDS ORDERED: lamoTRIgine 25 MG TAB PO SCH (21:00)
[2018-01-02] MEDS: CHOLECALCIFEROL 1,000 UNIT TAB PO SCH (07:49)
[2018-01-02] MEDS: NICOTINE 14MG/24HR PATCH TRANSDERM SCH (07:49)
[2018-01-02] MEDS: MULTIVITAMINS, THERA 1 EACH TAB PO SCH (07:49)
--- NOTE | 2018-01-02 11:12 | P.PN ---
Subjective Progress Note Date: 01/02/18 Principal diagnosis: Bipolar affective disorder with influence of psychoactive substances causing a mood disorder [place] states today that his anxiety is decreased and his depression both her 3 out of 10. Discussed with him the plan today to titrate his Invega so that on Friday he will get a Invega sustena shot and we will reevaluate on his discharge. He is able to realize that the medication is helpful to him and that he needs to stay on. He states he gets better sleep less anxiety and less depression and able to focus and concentrate. Objective - Vital Signs Vital signs: Vital Signs Temp 97.9 F 01/02/18 06:18 Pulse 94 01/02/18 06:18 Resp 18 01/02/18 06:18 BP 127/63 01/02/18 06:18 Pulse Ox 98 12/31/17 18:12 - Labs CBC & Chem 7: 01/01/18 09:30 01/01/18 09:30 Labs: Abnormal Lab Results - Last 24 Hours (Table) 01/01/18 Range/Units 17:15 Ur Leukocyte Esterase Moderate H (Negative) Urine WBC 20 H (0-5) /hpf Urine Mucus Rare H (None) /hpf Assessment and Plan Assessment: this a 32-year-old male presents emergency Department chief complaint psychiatric evaluation. Patient was picked up on car ordered petition filled out by his mother. Patient states that he does not believe this is his mother' s signature or discharge, some signature. Patient states he has not made any threats though he has been in arguments with his girlfriend and mother. Patient states he has no suicidal or homicidal ideations. Patient denies any physical complaints. Patient states that he does take Xanax and is a history of drug abuse. Denies any alcohol abuse. History of depression and anxiety Delusional thoughts Psychiatry evaluation Tobacco smoking Counseled to quit smoking Nicotine replacement therapy offered Methamphetamine abuse Patient counseled to avoid drug of abuse Past Medical History Past Medical History: No Reported History Additional Past Medical History / Comment(s): L2 FRACTURE; CHRONIC BACK PAIN History of Any Multi-Drug Resistant Organisms: None Reported Additional Past Surgical History / Comment(s): bilateral knees, right shoulder Past Psychological History: Anxiety Smoking Status: Current every day smoker Past Alcohol Use History: Rare Past Drug Use History: Heroin, Prescription Drug Abuse Musculoskeletal Examination - Abnormal/Involuntary Movements: [none Strength: [greater than antigravity (greater than/equal to 3/5) in all extremities] Muscle Tone: [no impairment] Gait: [grossly normal] Station: [grossly normal] Mental Status Examination - General Appearance: [ casual, appears stated age Speech/Language: [spontaneous, slow Attitude/Behavior: [cooperative, guarded, withdrawn, indifferent] Mood: [ depressed, anxious, fearful, hopelessness Affect: [ flat, blunted constricted Orientation: [time, person, place situation] Thought Content: [ No delusions Risk Factors: [Decreased thoughts of suicidal (ideations, plan) Perception: [wnl, no hallucinations (auditory Thought Processes: [concrete] Concentration/Attention Span: [ impaired] [Per observation and interview with the patient] Recent Memory: [impaired] [ 1out of 3 in 3 minutes] Remote Memory: [wnl] [past events, as related history] Intelligence: [average] [based on history, based on vocabulary, syntax, grammar , and content] Judgement: [fair] [per patient's behavior/history of present illness] Insight: [fair] [understanding severity of illness/history of present illness] Admitting Diagnosis: [Bipolar affective disorder with influence of psychoactive substances causing a mood disorder] Patient Strengths - Personal Skills: [x] Housing stability: [x] Able to vocalize needs: [x] Motivation, determination, readiness for change: [x Patient Limitations: [medication, non-compliance, pathological/unsupported environment Initial Plan of Care: [Patient be admitted to the care of her health unit and observation for withdrawal from psychoactive drugs including amphetamines will be observed and him be placed on close observation and suicide watch every 15 minutes. He'll be served by nursing staff, psychiatry, medicine, social work and recreational therapy. He'll be integrated and a mclean milieu therapeutic environment whereby observation of his dynamics within this milieu environment will be observed and titration of medicines to resolution of the symptoms.] Estimated Length of Stay: 3 days] Initial Discharge Plan: [home, [facility], referred to therapist Prognosis: [good] Justification for Inpatient Hospitalization - [ delusions, agitation, anxiety, depression resulting in significant loss of functioning.] [Dangerous to self, others, or property with need for controlled environment.] [Emotional or behavioral conditions and complications requiring 24 hour medical and nursing care.] [Need for special drug therapy, or other therapeutic program requiring continuous hospitalization.] [Failure of social or occupational functioning.] [Inability to meet basic life and health needs.] [ Plan: Titration of Invega and Lamictal for thought and mood
[2018-01-02] MEDS: PALIPERIDONE 6 MG TAB.ER.24 PO SCH (20:19)
[2018-01-02] MEDS ORDERED: lamoTRIgine 25 MG TAB PO SCH (21:00)
[2018-01-03] MEDS: NICOTINE 14MG/24HR PATCH TRANSDERM SCH (08:25)
[2018-01-03] MEDS: CHOLECALCIFEROL 1,000 UNIT TAB PO SCH (08:25)
[2018-01-03] MEDS: MULTIVITAMINS, THERA 1 EACH TAB PO SCH (08:25)
[2018-01-03] MEDS: lamoTRIgine 25 MG TAB PO SCH ×2 (08:25→20:09)
--- NOTE | 2018-01-03 09:19 | P.PN ---
Progress Note - Text Progress Note Date: 01/03/18 Interval history: Patient seen in [facility] today. He does report that he feels like he will be ready for discharge on Friday. He does not voice any adverse psychotropic medication side effects. Sleep and appetite seem to be stable. He does feel like there is mood improvement. Mental status exam: He is alert and cooperative with the interview. His speech is fluent, not rapid or pressured. Thought processes are organized. His mood is improved. He denies any thoughts of harm to self or others. He denies any hallucinations. He does not make any delusional statements. He does not show any agitation. Plan: Patient will be maintained on current psychotropic medication regimen. We 'll continue to monitor for any medication side effects and monitor his ongoing response to treatment.
[2018-01-03] MEDS: PALIPERIDONE 6 MG TAB.ER.24 PO SCH (20:09)
[2018-01-04] MEDS: CHOLECALCIFEROL 1,000 UNIT TAB PO SCH (08:11)
[2018-01-04] MEDS: MULTIVITAMINS, THERA 1 EACH TAB PO SCH (08:11)
[2018-01-04] MEDS: lamoTRIgine 25 MG TAB PO SCH ×2 (08:11→20:04)
[2018-01-04] MEDS: NICOTINE 14MG/24HR PATCH TRANSDERM SCH (08:11)
--- NOTE | 2018-01-04 14:49 | P.PN ---
Progress Note - Text Progress Note Date: 01/04/18 Interval history: Patient reports that he is eating well. He does talk about a family meeting and plans for discharge tomorrow. He does not voice any adverse psychotropic medication side effects. He feels though his mood is stable. Mental status exam: He is alert and cooperative with the interview. His speech is fluent, not rapid or pressured. Thought processes are organized. His mood he describes as stable. He denies any thoughts of harm to self or others. No evidence of psychosis or agitation. Plan: Patient will be maintained on current psychotropic medication regimen. He will be monitored regarding any medication side effects and his ongoing response to treatment.
[2018-01-04] MEDS: PALIPERIDONE 6 MG TAB.ER.24 PO SCH (20:04)
[2018-01-04 20:24] VITALS: RESP 16
[2018-01-05 06:39] VITALS: BP 122/59; PULSE 97; TEMP 98.1
[2018-01-05] MEDS: MULTIVITAMINS, THERA 1 EACH TAB PO SCH (08:44)
[2018-01-05] MEDS: NICOTINE 14MG/24HR PATCH TRANSDERM SCH (08:44)
[2018-01-05] MEDS: lamoTRIgine 25 MG TAB PO SCH (08:44)
[2018-01-05] MEDS: CHOLECALCIFEROL 1,000 UNIT TAB PO SCH (08:44)
[2018-01-05] MEDS ORDERED: PALIPERIDONE IM 234 MG/1.5 ML SYG IM STA (14:07)
[2018-01-05] MEDS ORDERED: NICOTINE POLACRILEX 2 MG GUM BUCCAL PRN (14:12)
--- NOTE | 2018-01-05 14:22 | P.DS ---
Providers Date of admission: 12/31/17 17:07 Expected date of discharge: 01/05/18 Attending physician: Georges Rand DO Consults: 12/31/17 17:56 Consult Physician Routine Consulting Provider: Ngoc Cason Consult Reason/Comments: H&P with medical follow up Do you want consulting provider notified?: Yes Primary care physician: Juan Atkinson Plan - Discharge Summary Discharge Rx Participant: Yes New Discharge Prescriptions: New lamoTRIgine [LaMICtal] 100 mg PO 2100 30 Days #30 tab Nicotine Polacrilex [Nicorette] 2 mg BUCCAL Q6HR PRN 30 Days #48 gum PRN Reason: Nicotine Cravings Paliperidone [Invega] 6 mg PO 2100 30 Days #30 [email or web address] Discontinued Multivitamins, Thera [Multivitamin (formulary)] 1 tab PO DAILY Cholecalciferol (Vitamin D3) [Vitamin D3] 2,000 unit PO DAILY Discharge Medication List Nicotine Polacrilex [Nicorette] 2 mg BUCCAL Q6HR PRN 30 Days #48 gum 01/05/18 [ Rx] Paliperidone [Invega] 6 mg PO 2100 30 Days #30 tab.[email or web address] 01/05/18 [Rx] lamoTRIgine [LaMICtal] 100 mg PO 2100 30 Days #30 tab 01/05/18 [Rx] Follow up Appointment(s)/Referral(s): Juan Atkinson MD [Primary Care Provider] - 1-2 days Discharge Disposition: HOME SELF-CARE
== END 2018-01-05 15:49 | disposition home or self-care (01) | DRG 897 ==
LOC: EC 12:54 → 3MHU 17:07
PROVIDERS: ADMIT Psychiatry & Neurology Psychiatry; ATTEND Psychiatry & Neurology Psychiatry
DX: F15.14 Other stimulant abuse with stimulant-induced mood disorder (principal); F22 Delusional disorders; F31.9 Bipolar disorder, unspecified; F41.9 Anxiety disorder, unspecified; Z91.19 Patient's noncompliance with other medical treatment and regimen; S32.029S Unspecified fracture of second lumbar vertebra, sequela; G89.29 Other chronic pain; Z71.6 Tobacco abuse counseling; F17.210 Nicotine dependence, cigarettes, uncomplicated; Z71.51 Drug abuse counseling and surveillance of drug abuser
CPT/HCPCS: 80053; 80306; 81001; 82075; 84443; 85025; 99285

== ENCOUNTER 2018-10-28 16:57 | Inpatient (IN) | payer OTHER ==
[2018-10-28] MEDS ORDERED: SODIUM CHLORIDE 0.9% 1,000 ML IV STA ×2 (17:15)
[2018-10-28] MEDS ORDERED: SODIUM CHLORIDE 0.9% 500 ML 500 ML IV STA (17:15)
[2018-10-28] MEDS ORDERED: PROPOFOL 1,000 MG in EMPTY BAG 1 BAG IV ONE (17:17)
[2018-10-28] MEDS ORDERED: PROPOFOL 10 MG/ML 20 ML VIAL IV ONE (17:17)
--- NOTE | 2018-10-28 17:19 | ED ---
Altered Mental Status HPI - General Chief Complaint: Skin/Abscess/Foreign Body Stated Complaint: Choking Source: EMS, RN notes reviewed, old records reviewed Mode of arrival: EMS Limitations: language barrier, altered mental status, physical limitation - History of Present Illness Initial Comments: This is a 33-year-old male inability unable to provide history coming in by EMS. Patient comes in as a primary 1 secondary to choking. Unknown medical history unknown significant history. Patient was at [employer] when bystanders called for patient choking not breathing. EMS stated the patient did appear to have food in his mouth unable to get intubation, patient stated initially cyanotic, EMS bagging MD Complaint: altered mental status, confusion, decreased responsiveness -: minutes(s) Severity: severe Context: unknown Associated Symptoms: other Treatments Prior to Arrival: oxygen - Related Data Previous Rx's Medication Instructions Recorded Nicotine Polacrilex [Nicorette] 2 mg BUCCAL Q6HR PRN 30 Days #48 01/05/18 gum Paliperidone [Invega] 6 mg PO 2100 30 Days #30 tab.er.[id number] 01/05/18 lamoTRIgine [LaMICtal] 100 mg PO 2100 30 Days #30 tab 01/05/18 Allergies Allergy/AdvReac Type Severity Reaction Status Date / Time No Known Allergies Allergy Verified 12/31/17 13:22 Review of Systems ROS Statement: Those systems with pertinent positive or pertinent negative responses have been documented in the HPI. ROS Other: All systems not noted in ROS Statement are negative. Past Medical History Past Medical History: No Reported History Additional Past Medical History / Comment(s): L2 FRACTURE; CHRONIC BACK PAIN History of Any Multi-Drug Resistant Organisms: None Reported Additional Past Surgical History / Comment(s): bilateral knees, right shoulder Past Psychological History: Anxiety Smoking Status: Current every day smoker Past Alcohol Use History: Rare Past Drug Use History: Heroin, Prescription Drug Abuse General Exam Limitations: language barrier, altered mental status, physical limitation General appearance: obtunded, in distress Head exam: Present: atraumatic, normocephalic, normal inspection, other (Cyanotic, asphyxiation) Eye exam: Present: normal appearance, PERRL, EOMI. Absent: scleral icterus, conjunctival injection, periorbital swelling ENT exam: Present: other (Patient has significant amount of food, stuck in his trachea) Neck exam: Present: normal inspection. Absent: tenderness, meningismus, lymphadenopathy Respiratory exam: Present: respiratory distress, rales, rhonchi, other (apneic upon initial presentation, improved w bagging). Absent: wheezes, stridor Cardiovascular Exam: Present: normal rhythm, tachycardia, normal heart sounds. Absent: systolic murmur, diastolic murmur, rubs, gallop, clicks GI/Abdominal exam: Present: soft, normal bowel sounds. Absent: distended, tenderness, guarding, rebound, rigid Extremities exam: Present: normal inspection, full ROM, normal capillary refill. Absent: tenderness, pedal edema, joint swelling, calf tenderness Back exam: Present: normal inspection Neurological exam: Present: altered Skin exam: Present: warm, cyanosis, diaphoretic, pallor. Absent: rash Course Vital Signs 10/28/18 16:57 Temperature 98.3 F Pulse Rate 132 H Respiratory 12 Rate Blood Pressure 120/77 O2 Sat by Pulse 98 Oximetry - Reevaluation(s) Reevaluation #1: 10/28/18 17:51 Medical records reviewed Reevaluation #2: 10/28/18 17:51 Patient did respond to Narcan was having significant amount of blood in his ET tube, decision made to keep patient intubated for likely pulmonary edema, noncardiogenic Reevaluation #3: 10/28/18 17:53 Patient's maintaining oxygenation Medical Decision Making - Medical Decision Making 33 male the ER for evaluation. Patient historian history is unknown what patient did have aspiration of food at [employer] brought in by EMS patient's upper airways able upper airway including trachea was able to be suctioned the patient is able to be intubated, did respond to Narcan but remains marginal pulse oxygenation likely secondary to pneumonitis. We'll admit for continued monitoring of cardiopulmonary, continued hemodynamic support - Lab Data Result diagrams: 10/28/18 17:03 10/28/18 17:03 Lab Results 10/28/18 10/28/18 10/28/18 Range/Units 17:03 17:03 17:03 WBC 17.4 H (3.8-10.6) k/uL RBC 5.72 (4.30-5.90) m/uL Hgb 17.2 (13.0-17.5) gm/dL Hct 53.2 H (39.0-53.0) % MCV 92.9 (80.0-100.0) fL MCH 30.0 (25.0-35.0) pg MCHC 32.3 (31.0-37.0) g/dL RDW 13.7 (11.5-15.5) % Plt Count 357 (150-450) k/uL Neutrophils % 45 % Lymphocytes % 43 % Monocytes % 5 % Eosinophils % 2 % Basophils % 2 % Neutrophils # 7.8 H (1.3-7.7) k/uL Lymphocytes # 7.6 H (1.0-4.8) k/uL Monocytes # 0.9 (0-1.0) k/uL Eosinophils # 0.3 (0-0.7) k/uL Basophils # 0.3 H (0-0.2) k/uL Manual Slide Review Performed PT (9.0-12.0) sec INR (<1.2) APTT (22.0-30.0) sec Sodium 142 (137-145) mmol/L Potassium 4.2 (3.5-5.1) mmol/L Chloride 104 (98-107) mmol/L Carbon Dioxide 23 (22-30) mmol/L Anion Gap 15 mmol/L BUN 19 (9-20) mg/dL Creatinine 1.07 (0.66-1.25) mg/dL Est GFR (CKD-EPI)AfAm >90 (>60 ml/min/1.73 sqM) Est GFR (CKD-EPI)NonAf >90 (>60 ml/min/1.73 sqM) Glucose 219 H (74-99) mg/dL Plasma Lactic Acid Prashanth 4.8 H* (0.7-2.0) mmol/L Calcium 9.5 (8.4-10.2) mg/dL Phosphorus 7.1 H (2.5-4.5) mg/dL Magnesium 2.2 (1.6-2.3) mg/dL Total Bilirubin 0.7 (0.2-1.3) mg/dL AST 70 H (17-59) U/L ALT 75 H (21-72) U/L Alkaline Phosphatase 65 (38-126) U/L Creatine Kinase 201 H (55-170) U/L Troponin I (0.000-0.034) ng/mL NT-Pro-B Natriuret Pep pg/mL Total Protein 7.9 (6.3-8.2) g/dL Albumin 4.8 (3.5-5.0) g/dL Urine Color Urine Appearance (Clear) Urine pH (5.0-8.0) Ur Specific [place] (1.001-1.035) Urine Protein (Negative) Urine Glucose (UA) (Negative) Urine Ketones (Negative) Urine Blood (Negative) Urine Nitrite (Negative) Urine Bilirubin (Negative) Urine Urobilinogen (<2.0) mg/dL Ur Leukocyte Esterase (Negative) Urine RBC (0-5) /hpf Urine WBC (0-5) /hpf Ur Squamous Epith Cells (0-4) /hpf Urine Bacteria (None) /hpf Hyaline Casts (0-2) /lpf Granular Casts (0) /lpf Urine Mucus (None) /hpf Urine Opiates Screen (NotDetected) Ur Oxycodone Screen (NotDetected) Urine Methadone Screen (NotDetected) Ur Propoxyphene Screen (NotDetected) Ur Barbiturates Screen (NotDetected) U Tricyclic Antidepress (NotDetected) Ur Phencyclidine Scrn (NotDetected) Ur Amphetamines Screen (NotDetected) U Methamphetamines Scrn (NotDetected) U Benzodiazepines Scrn (NotDetected) Urine Cocaine Screen (NotDetected) U Marijuana (THC) Screen (NotDetected) 10/28/18 10/28/18 10/28/18 Range/Units 17:03 17:03 17:03 WBC (3.8-10.6) k/uL RBC (4.30-5.90) m/uL Hgb (13.0-17.5) gm/dL Hct (39.0-53.0) % MCV (80.0-100.0) fL MCH (25.0-35.0) pg MCHC (31.0-37.0) g/dL RDW (11.5-15.5) % Plt Count (150-450) k/uL Neutrophils % % Lymphocytes % % Monocytes % % Eosinophils % % Basophils % % Neutrophils # (1.3-7.7) k/uL Lymphocytes # (1.0-4.8) k/uL Monocytes # (0-1.0) k/uL Eosinophils # (0-0.7) k/uL Basophils # (0-0.2) k/uL Manual Slide Review PT 10.8 (9.0-12.0) sec INR 1.0 (<1.2) APTT 24.5 (22.0-30.0) sec Sodium (137-145) mmol/L Potassium (3.5-5.1) mmol/L Chloride (98-107) mmol/L Carbon Dioxide (22-30) mmol/L Anion Gap mmol/L BUN (9-20) mg/dL Creatinine (0.66-1.25) mg/dL Est GFR (CKD-EPI)AfAm (>60 ml/min/1.73 sqM) Est GFR (CKD-EPI)NonAf (>60 ml/min/1.73 sqM) Glucose (74-99) mg/dL Plasma Lactic Acid Prashanth (0.7-2.0) mmol/L Calcium (8.4-10.2) mg/dL Phosphorus (2.5-4.5) mg/dL Magnesium (1.6-2.3) mg/dL Total Bilirubin (0.2-1.3) mg/dL AST (17-59) U/L ALT (21-72) U/L Alkaline Phosphatase (38-126) U/L Creatine Kinase (55-170) U/L Troponin I <0.012 (0.000-0.034) ng/mL NT-Pro-B Natriuret Pep 58 pg/mL Total Protein (6.3-8.2) g/dL Albumin (3.5-5.0) g/dL Urine Color Urine Appearance (Clear) Urine pH (5.0-8.0) Ur Specific [place] (1.001-1.035) Urine Protein (Negative) Urine Glucose (UA) (Negative) Urine Ketones (Negative) Urine Blood (Negative) Urine Nitrite (Negative) Urine Bilirubin (Negative) Urine Urobilinogen (<2.0) mg/dL Ur Leukocyte Esterase (Negative) Urine RBC (0-5) /hpf Urine WBC (0-5) /hpf Ur Squamous Epith Cells (0-4) /hpf Urine Bacteria (None) /hpf Hyaline Casts (0-2) /lpf Granular Casts (0) /lpf Urine Mucus (None) /hpf Urine Opiates Screen (NotDetected) Ur Oxycodone Screen (NotDetected) Urine Methadone Screen (NotDetected) Ur Propoxyphene Screen (NotDetected) Ur Barbiturates Screen (NotDetected) U Tricyclic Antidepress (NotDetected) Ur Phencyclidine Scrn (NotDetected) Ur Amphetamines Screen (NotDetected) U Methamphetamines Scrn (NotDetected) U Benzodiazepines Scrn (NotDetected) Urine Cocaine Screen (NotDetected) U Marijuana (THC) Screen (NotDetected) 10/28/18 Range/Units 17:30 WBC (3.8-10.6) k/uL RBC (4.30-5.90) m/uL Hgb (13.0-17.5) gm/dL Hct (39.0-53.0) % MCV (80.0-100.0) fL MCH (25.0-35.0) pg MCHC (31.0-37.0) g/dL RDW (11.5-15.5) % Plt Count (150-450) k/uL Neutrophils % % Lymphocytes % % Monocytes % % Eosinophils % % Basophils % % Neutrophils # (1.3-7.7) k/uL Lymphocytes # (1.0-4.8) k/uL Monocytes # (0-1.0) k/uL Eosinophils # (0-0.7) k/uL Basophils # (0-0.2) k/uL Manual Slide Review PT (9.0-12.0) sec INR (<1.2) APTT (22.0-30.0) sec Sodium (137-145) mmol/L Potassium (3.5-5.1) mmol/L Chloride (98-107) mmol/L Carbon Dioxide (22-30) mmol/L Anion Gap mmol/L BUN (9-20) mg/dL Creatinine (0.66-1.25) mg/dL Est GFR (CKD-EPI)AfAm (>60 ml/min/1.73 sqM) Est GFR (CKD-EPI)NonAf (>60 ml/min/1.73 sqM) Glucose (74-99) mg/dL Plasma Lactic Acid Prashanth (0.7-2.0) mmol/L Calcium (8.4-10.2) mg/dL Phosphorus (2.5-4.5) mg/dL Magnesium (1.6-2.3) mg/dL Total Bilirubin (0.2-1.3) mg/dL AST (17-59) U/L ALT (21-72) U/L Alkaline Phosphatase (38-126) U/L Creatine Kinase (55-170) U/L Troponin I (0.000-0.034) ng/mL NT-Pro-B Natriuret Pep pg/mL Total Protein (6.3-8.2) g/dL Albumin (3.5-5.0) g/dL Urine Color Yellow Urine Appearance Clear (Clear) Urine pH 5.5 (5.0-8.0) Ur Specific [place] 1.030 (1.001-1.035) Urine Protein 1+ H (Negative) Urine Glucose (UA) Negative (Negative) Urine Ketones Trace H (Negative) Urine Blood Trace H (Negative) Urine Nitrite Negative (Negative) Urine Bilirubin Negative (Negative) Urine Urobilinogen <2.0 (<2.0) mg/dL Ur Leukocyte Esterase Moderate H (Negative) Urine RBC 7 H (0-5) /hpf Urine WBC 5 (0-5) /hpf Ur Squamous Epith Cells 1 (0-4) /hpf Urine Bacteria Rare H (None) /hpf Hyaline Casts 6 H (0-2) /lpf Granular Casts 12 (0) /lpf Urine Mucus Moderate H (None) /hpf Urine Opiates Screen Detected H (NotDetected) Ur Oxycodone Screen Not Detected (NotDetected) Urine Methadone Screen Not Detected (NotDetected) Ur Propoxyphene Screen Not Detected (NotDetected) Ur Barbiturates Screen Not Detected (NotDetected) U Tricyclic Antidepress Not Detected (NotDetected) Ur Phencyclidine Scrn Not Detected (NotDetected) Ur Amphetamines Screen Not Detected (NotDetected) U Methamphetamines Scrn Not Detected (NotDetected) U Benzodiazepines Scrn Not Detected (NotDetected) Urine Cocaine Screen Not Detected (NotDetected) U Marijuana (THC) Screen Not Detected (NotDetected) - EKG Data -: EKG Interpreted by Me (EKG shows sinus tachycardia rate of 103, MN 150, QRS 02, QTc 471) - Radiology Data Radiology results: report reviewed (Chest x-ray show show bilateral infiltrat es), image reviewed Critical Care Time Critical Care Time: Yes Total Critical Care Time: 65 Disposition Clinical Impression: Choking due to food (regurgitated), Aspiration into respiratory tract, Heroin overdose, Noncardiogenic pulmonary edema, Aspiration pneumonitis Disposition: ADMITTED IP TO THIS [facility] Condition: Fair Is patient prescribed a controlled substance at d/c from ED?: No Referrals: Juan Atkinson MD [Primary Care Provider] - 1-2 days
--- NOTE | 2018-10-28 17:21 | XR ---
EXAMINATION TYPE: XR chest 1V portable DATE OF EXAM: 10/28/2018 COMPARISON: 07/06/2016 INDICATION: Pain ET tube placement TECHNIQUE: Single frontal view of the chest is obtained. FINDINGS: The heart size is normal. The pulmonary vasculature is normal. There is bilateral upper lobe infiltrates. This is an atypical distribution. Close follow-up is recom mended. Atypical pneumonias should be considered. Pulmonary edema could be considered. IMPRESSION: 1. Bilateral upper lobe infiltrates. The should be followed to clearing 2. Endotracheal tube tip is above the william.
[2018-10-28 17:31] LABS: Basophils # (A) 0.3 k/uL (0-0.2); Basophils % (A) 2 %; Eosinophils # (A) 0.3 k/uL (0-0.7); Eosinophils % (A) 2 %; HCT 53.2 % (39.0-53.0); HGB 17.2 gm/dL (13.0-17.5); Lymphocytes # (A) 7.6 k/uL (1.0-4.8); Lymphocytes % (A) 43 %; MCHC 32.3 g/dL (31.0-37.0); MCV 92.9 fL (80.0-100.0); Mean Platelet Volume 7.4; Monocytes # (A) 0.9 k/uL (0-1.0); Monocytes % (A) 5 %; Neutrophils # (A) 7.8 k/uL (1.3-7.7); Neutrophils % (A) 45 %; Platelet Count 357 k/uL (150-450); RBC 5.72 m/uL (4.30-5.90); RDW 13.7 % (11.5-15.5); WBC 17.4 k/uL (3.8-10.6)
[2018-10-28 17:37] LABS: ALT 75 U/L (21-72); AST 70 U/L (17-59); African American GFR (CKD) >90 (>60 ml/min/1.73 sqM); Albumin 4.8 g/dL (3.5-5.0); Alkaline Phosphatase 65 U/L (38-126); Anion Gap 15 mmol/L; Blood Urea Nitrogen 19 mg/dL (9-20); Calcium 9.5 mg/dL (8.4-10.2); Carbon Dioxide 23 mmol/L (22-30); Chloride 104 mmol/L (98-107); Creatine Kinase 201 U/L (55-170); Glucose 219 mg/dL (74-99); Magnesium 2.2 mg/dL (1.6-2.3); Phosphorus 7.1 mg/dL (2.5-4.5); Potassium 4.2 mmol/L (3.5-5.1); Sodium 142 mmol/L (137-145); Total Bilirubin 0.7 mg/dL (0.2-1.3); Total Protein 7.9 g/dL (6.3-8.2)
[2018-10-28 17:41] LABS: Partial Thromboplastin Time 24.5 sec (22.0-30.0); Prothrombin Time 10.8 sec (9.0-12.0)
[2018-10-28 17:45] LABS: Appearance,Urine Clear (Clear); Bacteria,Urine Rare /hpf; Bilirubin,Urine Negative (Negative); Blood,Urine Trace (Negative); Color,Urine Yellow; Glucose,Urine (UA) Negative (Negative); Granular Casts,Urine 12 /lpf (0); Hyaline Casts,Urine 6 /lpf (0-2); Ketones,Urine Trace (Negative); Leukocyte Esterase,Urine Moderate (Negative); Mucus,Urine Moderate /hpf; Nitrite,Urine Negative (Negative); PH, Urine 5.5 (5.0-8.0); Protein,Urine 1+ (Negative); RBC,Urine 7 /hpf (0-5); Squamous Epithelial Cell,Urine 1 /hpf (0-4); Urobilinogen,Urine <2.0 mg/dL (<2.0); WBC,Urine 5 /hpf (0-5)
[2018-10-28 17:53] LABS: Amphetamine Screen,Urine Not Detected (NotDetected); Barbiturate Screen,Urine Not Detected (NotDetected); Benzodiazepines Screen,Urine Not Detected (NotDetected); Cocaine Screen,Urine Not Detected (NotDetected); Methadone Screen, Urine Not Detected (NotDetected); Opiate Screen,Urine Detected (NotDetected); Oxycodone Screen, Urine Not Detected (NotDetected); Phencyclidine Screen,Urine Not Detected (NotDetected); Tricyclic Antidepressant,Urine Not Detected (NotDetected); Urn Cannabinoid Scrn Not Detected (NotDetected)
[2018-10-28] MEDS ORDERED: MIDAZOLAM 1 MG/ML 5 ML VIAL IV STA ×2 (18:07→18:08)
[2018-10-28] MEDS ORDERED: NALOXONE 0.4 MG/ML 1 ML VIAL IV STA (18:07)
[2018-10-28] MEDS ORDERED: IPRATROPIUM-ALBUTEROL 3 ML NEB INHALATION PRN (18:15)
[2018-10-28] MEDS ORDERED: NALOXONE 0.4 MG/ML 1 ML VIAL IV PRN (18:15)
[2018-10-28] MEDS ORDERED: IPRATROPIUM-ALBUTEROL 3 ML NEB INHALATION STA (18:15)
[2018-10-28] MEDS ORDERED: DEXAMETHASONE SOD PHOSPHATE 10 MG/ML 1 ML VIAL IV STA (18:18)
[2018-10-28] MEDS ORDERED: PIPERACILLIN-TAZOBACTAM 3.375 GM in SODIUM CHLORIDE 0.9% 100 ML IVPB STA (18:18)
[2018-10-28] MEDS: HYDROmorphone 1 MG/ML 1 ML SYRINGE IVP STA ×2 (18:55→20:01)
[2018-10-28 20:26] LABS: Glucose,Whole Blood 103 mg/dL (75-99)
[2018-10-29] MEDS ORDERED: MENTHOL (NICE) LOZENGE MUCOUS MEM PRN (02:41)
[2018-10-29] MEDS ORDERED: KETOROLAC 30 MG/ML 1 ML VIAL IM SCH (02:45)
[2018-10-29] MEDS: KETOROLAC 30 MG/ML 1 ML VIAL IVP PRN ×4 (03:51→22:21)
[2018-10-29 05:25] LABS: Basophils % (A) 0 %; Eosinophils # (A) 0.2 k/uL (0-0.7); Eosinophils % (A) 1 %; HCT 40.9 % (39.0-53.0); Lymphocytes # (A) 2.4 k/uL (1.0-4.8); Lymphocytes % (A) 18 %; MCH 29.3 pg (25.0-35.0); MCHC 32.5 g/dL (31.0-37.0); MCV 90.2 fL (80.0-100.0); Mean Platelet Volume 7.1; Monocytes # (A) 0.8 k/uL (0-1.0); Monocytes % (A) 6 %; Neutrophils # (A) 9.7 k/uL (1.3-7.7); Neutrophils % (A) 74 %; Platelet Count 225 k/uL (150-450); RBC 4.53 m/uL (4.30-5.90); RDW 13.7 % (11.5-15.5); WBC 13.2 k/uL (3.8-10.6)
[2018-10-29 05:26] LABS: HGB 13.3 gm/dL (13.0-17.5)
[2018-10-29 05:49] LABS: ALT 47 U/L (21-72); AST 26 U/L (17-59); African American GFR (CKD) >90 (>60 ml/min/1.73 sqM); Albumin 2.4 g/dL (3.5-5.0); Alkaline Phosphatase 38 U/L (38-126); Anion Gap 5 mmol/L; Blood Urea Nitrogen 18 mg/dL (9-20); Calcium 7.1 mg/dL (8.4-10.2); Carbon Dioxide 21 mmol/L (22-30); Chloride 112 mmol/L (98-107); Glucose 77 mg/dL (74-99); Magnesium 1.7 mg/dL (1.6-2.3); Phosphorus 3.5 mg/dL (2.5-4.5); Potassium 3.5 mmol/L (3.5-5.1); Sodium 138 mmol/L (137-145); Total Bilirubin 0.6 mg/dL (0.2-1.3); Total Protein 4.6 g/dL (6.3-8.2)
--- NOTE | 2018-10-29 07:17 | XR ---
EXAMINATION TYPE: XR chest 1V portable DATE OF EXAM: 10/29/2018 COMPARISON: 10/28/2018 HISTORY: Shortness of breath TECHNIQUE: Single frontal view of the chest is obtained. FINDINGS: ET tube has been interval near complete resolution of bilateral areas of infiltrate. No pl eural effusion. Heart size normal. No overt failure. IMPRESSION: Interval marked improvement of the chest with near complete resolution of bilateral infi ltrates
[2018-10-29] MEDS: PANTOPRAZOLE 40 MG/10 ML VIAL IV SCH (07:51)
[2018-10-29] MEDS ORDERED: Potassium Replacement Protocol 1 EACH MISC MISCELLANE PRN (10:34)
[2018-10-29] MEDS ORDERED: Magnesium Replacement Protocol 1 EACH MISC MISCELLANE PRN (10:35)
--- NOTE | 2018-10-29 11:17 | CONS ---
CONSULTATION PULMONARY/CRITICAL CARE CONSULTATION: DATE OF CONSULTATION: October 29, 2018 This is a 33-year-old male who apparently choked on a submarine sandwich. Apparently his friend called EMS. When they arrived, the patient was choking and nearly apneic or apneic and cyanotic. They could not secure an airway at that time and he was transferred into the ER. At that point, he was apparently being bagged. In the ER, he was seen by Dr. Gongora. He was initially intubated and then was suctioned. His respiratory status improved dramatically and apparently he was extubated right around change of shift or so. This all took place in the ER. When I got report from Dr. Gongora, he was still intubated. Anyway, I was never alerted to the fact that he was extubated until I spoke to the ICU nurse. Currently, he is doing well. His drug screen was apparently positive for opiates. He denied taking any IV drugs. He has in the past. He is currently on 2 L nasal cannula and a saline IV KVO. His chest x-ray which showed significant abnormality primarily in the upper lung lopez yesterday, is back to normal today. Other than for some joint aches and pains, he is feeling back to normal. He currently does not have a doctor. He does smoke cigarettes. He states he did use IV drugs in the past. MEDICATIONS: His medications include Lamictal, Invega and Nicorette gum. ALLERGIES: Allergies are denied. I am not sure where he is getting medications as he states he has no primary care physician. MEDICAL HISTORY: Medical history includes chronic back pain, L2 fracture, bilateral knee pain, multiple surgeries on right shoulder and bilateral knees. Other than that though, he denies any other major medical problems. SOCIAL HISTORY: Social history is positive for ongoing tobacco use and as well as alcohol use. He does have a history of illicit drug use in the past including IV heroin and prescription drug abuse. The Percocet that he took apparently he got from a friend or he bought them off the street. FAMILY HISTORY: Family history is asked about. Apparently mother and father healthy.. REVIEW OF SYSTEMS: CONSTITUTIONAL: Negative. NEUROLOGIC: Negative. HEENT: Negative. CARDIOVASCULAR: Negative. PULMONARY: Negative. GI: Negative. : Negative. RHEUMATOLOGIC: Diffuse joint aches and pains. IMMUNOLOGIC: Negative. ENDOCRINOLOGIC: Negative. PHYSICAL EXAMINATION: VITAL SIGNS: Current vital signs are reviewed. Temperature 98.6, heart rate 70, respiratory rate 18, blood pressure 108/60, mean 76 and 2 L saturation 94% to 85%. GENERAL: Appears in no acute distress. HEENT: Examination is grossly unremarkable. Mucous membranes are moist. No oral lesions. NECK: Supple. Full range of motion. No adenopathy, thyromegaly or neck vein distention. CARDIOVASCULAR: Examination reveals regular rhythm and rate. S1, S2 normal. No S3, S4, or murmur. LUNGS: Are now clear. No wheezes, rhonchi, or crackles. ABDOMEN: Soft. Bowel sounds are heard. EXTREMITIES: Are intact. No cyanosis, clubbing, or edema. SKIN: Without rash. Multiple tattoos noted. NEUROLOGIC: Examination is brief but nonfocal. LABS: Labs are reviewed. White count 13.2, hemoglobin 13.3, hematocrit 40.9, platelet count normal. Sodium, potassium normal. Chloride 112, CO2 of 21. Anion gap is 5. BUN and creatinine were 18 and 0.60. These electrolytes are consistent with mild non-anion gap metabolic acidosis secondary to hyperchloremia, likely related to administration of saline fluid. The rest of the labs look okay. Drug screen was positive for opiates. MEDICATIONS: Current medications are reviewed. Most of these medications can be discontinued. ASSESSMENT: 1. Acute episode of choking on food with near respiratory arrest, status post brief intubation and subsequent extubation. All on the same day, with a significantly improved respiratory status. 2. Upper lobe infiltrates, which have now resolved, likely related to either aspiration and/or negative pressure pulmonary edema. 3. Previous history of IV drug abuse. 4. Polysubstance abuse. 5. Ongoing tobacco use and dependence. 6. No history of any major medical problems other than chronic pain particularly to the knees and low back. 7. History of L2 fracture. PLAN: The patient's medications are reviewed. The Protonix can be discontinued. The patient is doing well from the pulmonary status. The nebulizer treatments can be discontinued. The patient could be transferred out to the general medical floor. Additional recommendations and suggestions are forthcoming. His abnormal x-ray is completely resolved. Additional recommendations and suggestions are forthcoming. Prognosis is guarded. MMODL / IJN: [id number] /
[2018-10-29] MEDS: POTASSIUM CHLORIDE ER 20 MEQ TAB.ER PO SCH ×2 (13:28→15:03)
[2018-10-29] MEDS: MAGNESIUM SULFATE-D5W PMX 1 GM in DEXTROSE/WATER 1 100ML.BAG IVPB SCH ×2 (13:28→16:16)
--- NOTE | 2018-10-29 15:50 | P.HPIM ---
History of Present Illness H&P Date: 10/29/18 Chief Complaint: Choking on food This is a 33-year-old gentleman with no current PCP, has seen Dr. Marcano in the past. Comes in by EMS, secondary to acute choking on food at [employer], this was witnessed by a girlfriend, who called EMS, and was subsequently sent to the emergency room. He was noticed that he was not breathing during the episode, unknown downtime, EMS stated that the patient appears to have foot numbness mouth, unable to get intubation, patient was initially cyanotic, EMS has provided some bagging. Patient denies any dysphagia or aspirated in the past this would be the first episode. He was subsequently seen in the emergency room, he was obtunded and not responding, he responded to Narcan, the ER decided to keep the patient intubated secondary to pulmonary edema likely cardiogenic, and was kept on oxygen until transfer to ICU. He had copious amounts off foot that is suctioned he was hypoxemic still in the emergency room, started started on Solu-Medrol and IV antibiotics empirically treatment consult the wound with a critical care medicine, Dr. Fortune In the ER, WBC count 17.4 hemoglobin 7.2 platelet 357 CO2 23 creatinine 1.07 glucose 219 lactic acid 4.8 phosphorus 7.1 ALT AST slightly elevated with normal alkaline phos urine drug screen positive for opiates urine WBC of 5 EKG shows sinus tachycardia heart rate of 103 chest x-ray bilateral upper lobe infiltrate, patient was admitted secondary to large bolus of regurgitated food with choking episode, episode off apnea, noncardiogenic pulmonary edema, aspiration pneumonitis, possibility of heroin overdose Review of Systems Patient was extubated, and now is coherent, Constitutional: Reports as per HPI, Denies anorexia, Denies chills, Denies chronic headaches, Denies chronic pain, Denies daytime sleepiness, Denies fatigue, Denies fever, Denies lethargy, Denies malaise, Denies night sweats, Denies poor appetite, Denies sweats, Denies weakness, Denies weight gain, Denies weight loss Ears, nose, mouth and throat: Reports as per HPI, Denies ant. neck pain, Denies bleeding gums, Denies dental pain, Denies dysphagia, Denies epistaxis, Denies headache, Denies hoarseness, Denies mouth pain, Denies nasal congestion, Denies nasal discharge, Denies neck fullness/pressure, Denies neck lump, Denies nose pain, Denies odynophagia, Denies post-nasal drip, Denies sinus pain, Denies sinus pressure, Denies swelling in mouth, Denies swelling in throat, Denies sore throat, Denies vertigo, Denies voice changes Cardiovascular: Reports as per HPI Respiratory: Reports as per HPI, Reports cough, Reports pleurisy Gastrointestinal: Reports as per HPI Genitourinary: Reports as per HPI, Denies decreased libido, Denies difficulties fathering child, Denies discharge, Denies dysuria, Denies erectile dysfunction, Denies flank pain, Denies genital pain, Denies genital sores, Denies hematuria, Denies impotence, Denies incontinence, Denies kidney stones, Denies nocturia, Denies polyuria, Denies testicular lump, Denies testicular pain, Denies urinary frequency, Denies urinary hesitancy, Denies urinary retention Musculoskeletal: Reports as per HPI, Denies arm numbness/tingling, Denies atrophy, Denies fractures, Denies frequent falls, Denies gait dysfunction, Denies hot joints, Denies leg numbness/tingling, Denies limitation of motion, Denies loss of height, Denies low back pain, Denies morning stiffness, Denies muscle cramps, Denies muscle weakness, Denies myalgias, Denies neck pain, Denies neck stiffness, Denies prior amputations, Denies redness of joints, Denies shooting arm pain, Denies shooting leg pain Integumentary: Reports as per HPI, Denies acne, Denies boils, Denies brittle nails, Denies change in hair/nails, Denies color changes, Denies darkening of skin, Denies depigmentation, Denies dryness, Denies foot/leg ulcers, Denies growths, Denies hirsutism, Denies lesions, Denies onychomycosis, Denies pruritus, Denies rash, Denies sores, Denies striae, Denies unusual bruising, Denies wounds Neurological: Reports as per HPI, Denies aphasia, Denies ataxia, Denies balance difficulties, Denies burning pain, Denies change in mentation, Denies change in smell/taste, Denies change in speech, Denies confusion, Denies convulsions, Denies double vision, Denies gait dysfunction, Denies head injury, Denies headaches, Denies hearing difficulties, Denies lack of coordination, Denies loss of vision, Denies memory loss, Denies migraines, Denies motor disturbance, Denies numbness, Denies paralysis, Denies paresthesias, Denies seizures, Denies sensory deficit, Denies spasticity, Denies syncope, Denies tic, Denies tingling, Denies transient paralysis, Denies tremors, Denies vertigo, Denies weakness, Denies visual changes Psychiatric: Reports as per HPI Endocrine: Reports as per HPI, Denies cold intolerance, Denies deepening of the voice, Denies excessive sweating, Denies excessive thirst, Denies fatigue, Denies flushing, Denies heat intolerance, Denies high blood sugars, Denies increase in ring/shoe/hat size, Denies low blood sugars, Denies nocturia, Denies palpitations, Denies polydipsia, Denies polyphagia, Denies polyuria, Denies proptosis, Denies recent glucocorticoid use, Denies thyroid mass, Denies weight change Hematologic/Lymphatic: Reports as per HPI Allergic/Immunologic: Reports as per HPI Past Medical History Past Medical History: No Reported History Additional Past Medical History / Comment(s): L2 FRACTURE; CHRONIC BACK PAIN History of Any Multi-Drug Resistant Organisms: None Reported Additional Past Surgical History / Comment(s): bilateral knees, right shoulder Past Anesthesia/Blood Transfusion Reactions: No Reported Reaction Device Placement Date:: Substance abuse history, history of methamphetamine use, last use was 02/16 Past Psychological History: Anxiety Additional Psychological History / Comment(s): Bipolar affective disorder with influence of psychoactive substances causing mood disorder Smoking Status: Current every day smoker Past Alcohol Use History: Rare Past Drug Use History: Heroin, Prescription Drug Abuse - Past Family History Father Family Medical History: No Reported History Mother Family Medical History: No Reported History Sister(s) Family Medical History: No Reported History Daughter(s) Family Medical History: No Reported History Son(s) Family Medical History: No Reported History Medications and Allergies Allergies Allergy/AdvReac Type Severity Reaction Status Date / Time No Known Allergies Allergy Verified 10/28/18 18:14 Physical Exam Vitals: Vital Signs Temp Pulse Pulse Resp BP Pulse Ox 10/29/18 15:00 99 16 121/96 96 10/29/18 14:00 151/77 94 L 10/29/18 12:30 20 10/29/18 12:00 99 F 100 20 143/79 95 10/29/18 10:00 143/59 93 L 10/29/18 09:00 16 97/86 94 L 10/29/18 08:00 91 20 142/73 95 10/29/18 07:00 80 20 119/65 97 10/29/18 06:00 75 19 108/60 94 L 10/29/18 05:00 70 18 116/62 94 L 10/29/18 04:00 98.6 F 71 20 112/55 97 10/29/18 03:00 17 118/70 94 L 10/29/18 02:00 92 19 137/68 96 10/29/18 01:00 86 19 106/60 97 10/29/18 00:16 98.3 F 85 18 106/60 92 L 10/29/18 00:00 100 21 104/60 94 L 10/28/18 23:00 94 16 118/62 96 10/28/18 22:00 101 H 20 120/57 94 L 10/28/18 21:00 97 23 128/59 94 L 10/28/18 20:30 105 H 16 10/28/18 20:16 98.1 F 105 H 28 H 111/74 95 10/28/18 19:20 105 H 29 H 143/78 94 L 10/28/18 19:10 113 H 33 H 131/97 92 L 10/28/18 19:00 107 H 26 H 127/78 98 10/28/18 18:50 98 17 118/60 100 10/28/18 18:45 97 18 126/77 10/28/18 17:16 16 10/28/18 17:00 12 10/28/18 16:57 98.3 F 132 H 12 120/77 98 Intake and Output 10/29/18 10/29/18 10/29/18 06:59 14:59 22:59 Intake Total 1000 270 Output Total 500 0 Balance 500 270 Intake: IV 20 Sodium Chloride 0.9% 1, 20 000 ml @ 100 mls/hr IV . Q10H STA Rx#:[id number] Intake, IV Titration 700 Amount Sodium Chloride 0.9% 1, 700 000 ml @ 100 mls/hr IV . Q10H STA Rx#:[id number] Oral 300 250 Output: Urine 500 0 Other: Voiding Method Urinal Toilet Weight 95.2 kg - Constitutional General appearance: average body habitus, cooperative, no acute distress - EENT Eyes: anicteric sclerae, EOMI, PERRLA, dentition normal, normal appearance ENT: hearing grossly normal, NA/AT, normal oropharynx - Neck Neck: normal ROM - Respiratory Respiratory: bilateral: CTA, negative: diminished, dullness, rales, rhonchi - Cardiovascular Rhythm: regular Heart sounds: normal: S1, S2 Abnormal Heart Sounds: no systolic murmur, no diastolic murmur, no rub, no S3 Gallop, no S4 Gallop, no click, no other - Gastrointestinal General gastrointestinal: normal bowel sounds, soft - Integumentary Integumentary: decreased turgor, normal - Neurologic Neurologic: CNII-XII intact - Musculoskeletal Musculoskeletal: gait normal, strength equal bilaterally - Psychiatric Psychiatric: A&O x's 3, appropriate affect, intact judgment & insight Results CBC & Chem 7: 10/29/18 04:40 10/29/18 04:40 Labs: Abnormal Lab Results - Last 24 Hours (Table) 10/28/18 10/28/18 10/28/18 Range/Units 17:03 17:03 17:03 WBC 17.4 H (3.8-10.6) k/uL Hct 53.2 H (39.0-53.0) % Neutrophils # 7.8 H (1.3-7.7) k/uL Lymphocytes # 7.6 H (1.0-4.8) k/uL Basophils # 0.3 H (0-0.2) k/uL Chloride (98-107) mmol/L Carbon Dioxide (22-30) mmol/L Creatinine (0.66-1.25) mg/dL Glucose 219 H (74-99) mg/dL POC Glucose (mg/dL) (75-99) mg/dL Plasma Lactic Acid Prashanth 4.8 H* (0.7-2.0) mmol/L Calcium (8.4-10.2) mg/dL Phosphorus 7.1 H (2.5-4.5) mg/dL AST 70 H (17-59) U/L ALT 75 H (21-72) U/L Creatine Kinase 201 H (55-170) U/L Total Protein (6.3-8.2) g/dL Albumin (3.5-5.0) g/dL Urine Protein (Negative) Urine Ketones (Negative) Urine Blood (Negative) Ur Leukocyte Esterase (Negative) Urine RBC (0-5) /hpf Urine Bacteria (None) /hpf Hyaline Casts (0-2) /lpf Urine Mucus (None) /hpf Urine Opiates Screen (NotDetected) 10/28/18 10/28/18 10/29/18 Range/Units 17:30 20:22 04:40 WBC 13.2 H (3.8-10.6) k/uL Hct (39.0-53.0) % Neutrophils # 9.7 H (1.3-7.7) k/uL Lymphocytes # (1.0-4.8) k/uL Basophils # (0-0.2) k/uL Chloride (98-107) mmol/L Carbon Dioxide (22-30) mmol/L Creatinine (0.66-1.25) mg/dL Glucose (74-99) mg/dL POC Glucose (mg/dL) 103 H (75-99) mg/dL Plasma Lactic Acid Prashanth (0.7-2.0) mmol/L Calcium (8.4-10.2) mg/dL Phosphorus (2.5-4.5) mg/dL AST (17-59) U/L ALT (21-72) U/L Creatine Kinase (55-170) U/L Total Protein (6.3-8.2) g/dL Albumin (3.5-5.0) g/dL Urine Protein 1+ H (Negative) Urine Ketones Trace H (Negative) Urine Blood Trace H (Negative) Ur Leukocyte Esterase Moderate H (Negative) Urine RBC 7 H (0-5) /hpf Urine Bacteria Rare H (None) /hpf Hyaline Casts 6 H (0-2) /lpf Urine Mucus Moderate H (None) /hpf Urine Opiates Screen Detected H (NotDetected) 10/29/18 Range/Units 04:40 WBC (3.8-10.6) k/uL Hct (39.0-53.0) % Neutrophils # (1.3-7.7) k/uL Lymphocytes # (1.0-4.8) k/uL Basophils # (0-0.2) k/uL Chloride 112 H (98-107) mmol/L Carbon Dioxide 21 L (22-30) mmol/L Creatinine 0.60 L (0.66-1.25) mg/dL Glucose (74-99) mg/dL POC Glucose (mg/dL) (75-99) mg/dL Plasma Lactic Acid Prashanth (0.7-2.0) mmol/L Calcium 7.1 L (8.4-10.2) mg/dL Phosphorus (2.5-4.5) mg/dL AST (17-59) U/L ALT (21-72) U/L Creatine Kinase (55-170) U/L Total Protein 4.6 L (6.3-8.2) g/dL Albumin 2.4 L (3.5-5.0) g/dL Urine Protein (Negative) Urine Ketones (Negative) Urine Blood (Negative) Ur Leukocyte Esterase (Negative) Urine RBC (0-5) /hpf Urine Bacteria (None) /hpf Hyaline Casts (0-2) /lpf Urine Mucus (None) /hpf Urine Opiates Screen (NotDetected) Laboratory Results WBC 13.2 k/uL (3.8-10.6) H 10/29/18 04:40 RBC 4.53 m/uL (4.30-5.90) 10/29/18 04:40 Hgb 13.3 gm/dL (13.0-17.5) D 10/29/18 04:40 Hct 40.9 % (39.0-53.0) 10/29/18 04:40 MCV 90.2 fL (80.0-100.0) 10/29/18 04:40 MCH 29.3 pg (25.0-35.0) 10/29/18 04:40 MCHC 32.5 g/dL (31.0-37.0) 10/29/18 04:40 RDW 13.7 % (11.5-15.5) 10/29/18 04:40 Plt Count 225 k/uL (150-450) 10/29/18 04:40 Neutrophils % 74 % 10/29/18 04:40 Lymphocytes % 18 % 10/29/18 04:40 Monocytes % 6 % 10/29/18 04:40 Eosinophils % 1 % 10/29/18 04:40 Basophils % 0 % 10/29/18 04:40 Neutrophils # 9.7 k/uL (1.3-7.7) H 10/29/18 04:40 Lymphocytes # 2.4 k/uL (1.0-4.8) 10/29/18 04:40 Monocytes # 0.8 k/uL (0-1.0) 10/29/18 04:40 Eosinophils # 0.2 k/uL (0-0.7) 10/29/18 04:40 Basophils # 0.0 k/uL (0-0.2) 10/29/18 04:40 Manual Slide Review Performed 10/28/18 17:03 PT 10.8 sec (9.0-12.0) 10/28/18 17:03 INR 1.0 (<1.2) 10/28/18 17:03 APTT 24.5 sec (22.0-30.0) 10/28/18 17:03 Sodium 138 mmol/L (137-145) 10/29/18 04:40 Potassium 3.5 mmol/L (3.5-5.1) 10/29/18 04:40 Chloride 112 mmol/L (98-107) H 10/29/18 04:40 Carbon Dioxide 21 mmol/L (22-30) L 10/29/18 04:40 Anion Gap 5 mmol/L 10/29/18 04:40 BUN 18 mg/dL (9-20) 10/29/18 04:40 Creatinine 0.60 mg/dL (0.66-1.25) L 10/29/18 04:40 Est GFR (CKD-EPI)AfAm >90 (>60 ml/min/1.73 sqM) 10/29/18 04:40 Est GFR (CKD-EPI)NonAf >90 (>60 ml/min/1.73 sqM) 10/29/18 04:40 Glucose 77 mg/dL (74-99) 10/29/18 04:40 POC Glucose (mg/dL) 103 mg/dL (75-99) H 10/28/18 20:22 POC Glu Awake Overnight Monitor Leida Bond 10/28/18 20:22 Lactic Ac Sepsis Rflx Y 10/28/18 17:51 Plasma Lactic Acid Prashanth 1.3 mmol/L (0.7-2.0) 10/28/18 20:58 Calcium 7.1 mg/dL (8.4-10.2) L 10/29/18 04:40 Phosphorus 3.5 mg/dL (2.5-4.5) 10/29/18 04:40 Magnesium 1.7 mg/dL (1.6-2.3) 10/29/18 04:40 Total Bilirubin 0.6 mg/dL (0.2-1.3) 10/29/18 04:40 AST 26 U/L (17-59) 10/29/18 04:40 ALT 47 U/L (21-72) 10/29/18 04:40 Alkaline Phosphatase 38 U/L (38-126) 10/29/18 04:40 Creatine Kinase 201 U/L (55-170) H 10/28/18 17:03 Troponin I <0.012 ng/mL (0.000-0.034) 10/28/18 17:03 NT-Pro-B Natriuret Pep 58 pg/mL 10/28/18 17:03 Total Protein 4.6 g/dL (6.3-8.2) L 10/29/18 04:40 Albumin 2.4 g/dL (3.5-5.0) L 10/29/18 04:40 Urine Color Yellow 10/28/18 17:30 Urine Appearance Clear (Clear) 10/28/18 17:30 Urine pH 5.5 (5.0-8.0) 10/28/18 17:30 Ur Specific [place] 1.030 (1.001-1.035) 10/28/18 17:30 Urine Protein 1+ (Negative) H 10/28/18 17:30 Urine Glucose (UA) Negative (Negative) 10/28/18 17:30 Urine Ketones Trace (Negative) H 10/28/18 17:30 Urine Blood Trace (Negative) H 10/28/18 17:30 Urine Nitrite Negative (Negative) 10/28/18 17:30 Urine Bilirubin Negative (Negative) 10/28/18 17:30 Urine Urobilinogen <2.0 mg/dL (<2.0) 10/28/18 17:30 Ur Leukocyte Esterase Moderate (Negative) H 10/28/18 17:30 Urine RBC 7 /hpf (0-5) H 10/28/18 17:30 Urine WBC 5 /hpf (0-5) 10/28/18 17:30 Ur Squamous Epith Cells 1 /hpf (0-4) 10/28/18 17:30 Urine Bacteria Rare /hpf (None) H 10/28/18 17:30 Hyaline Casts 6 /lpf (0-2) H 10/28/18 17:30 Granular Casts 12 /lpf (0) 10/28/18 17:30 Urine Mucus Moderate /hpf (None) H 10/28/18 17:30 Urine Opiates Screen Detected (NotDetected) H 10/28/18 17:30 Ur Oxycodone Screen Not Detected (NotDetected) 10/28/18 17:30 Urine Methadone Screen Not Detected (NotDetected) 10/28/18 17:30 Ur Propoxyphene Screen Not Detected (NotDetected) 10/28/18 17:30 Ur Barbiturates Screen Not Detected (NotDetected) 10/28/18 17:30 U Tricyclic Antidepress Not Detected (NotDetected) 10/28/18 17:30 Ur Phencyclidine Scrn Not Detected (NotDetected) 10/28/18 17:30 Ur Amphetamines Screen Not Detected (NotDetected) 10/28/18 17:30 U Methamphetamines Scrn Not Detected (NotDetected) 10/28/18 17:30 U Benzodiazepines Scrn Not Detected (NotDetected) 10/28/18 17:30 Urine Cocaine Screen Not Detected (NotDetected) 10/28/18 17:30 U Marijuana (THC) Screen Not Detected (NotDetected) 10/28/18 17:30 Thrombosis Risk Factor Assmnt - DVT/VTE Prophylaxis DVT/VTE Prophylaxis: Low risk, early ambulation encouraged - Choose All That Apply Any of the Below Risk Factors Present?: No Other Risk Factors: No Thrombosis Risk Factor Assessment Level: Very Low Risk Assessment and Plan Plan: Large volume aspiration caused by acute choking episode, causing acute respiratory arrest transient patient currently is in ICU, he required ventilatory support, from the emergency room on arrival, and was extubated this morning by critical care medicine., Suction off would bolus was made from the EMS and emergency room, and currently is extubated 10/29/2018. Critical care medicine following 2. Aspiration pneumonitis with upper lobe infiltrates, with suspected pulmonary edema, and chemical pneumonitis, symptoms have improved patient is on IV antibio tics, chest x-ray shows resolution off the upper lobe infiltrate, nebulized treatments have been discontinued from pulmonary doctor, so is Protonix, no oral antibiotic given or required, continue to monitor 3. Personal history off IV drug use, last use was of methamphetamine January 2017 per patient advice on permanent abstinence 4. Pharyngitis and pleurisy most likely secondary to aspiration events, Cepacol lozenges and Toradol given, 5. History of chronic pain, knees and low back, old L2 fracture 6. Current use of tobacco and nicotine dependency 7. Urine drug screen positive for opiates,, present prior to admission DVT prophylaxis, early ambulation, low risk
[2018-10-29 22:14] VITALS: RESP 18
[2018-10-30 05:40] VITALS: BP 117/64; PULSE 89; TEMP 98
[2018-10-30] MEDS: PANTOPRAZOLE 40 MG/10 ML VIAL IV SCH (08:22)
[2018-10-30] MEDS ORDERED: PANTOPRAZOLE 40 MG TABLET PO SCH (08:30)
--- NOTE | 2018-10-30 11:46 | P.PN ---
Subjective Progress Note Date: 10/30/18 Principal diagnosis: Aspiration of a portion of a submarine sandwich requiring brief intubation. The patient is seen today 10/30/2018 in follow-up on the regular medical floor. He is awake and alert in no acute distress. Back to his baseline as far as his breathing status is concerned. Maintaining O2 saturations in the 90s on room air. No pulmonary complaints. Objective - Vital Signs Vital signs: Vital Signs Temp 98 F 10/30/18 04:30 Pulse 89 10/30/18 04:30 Resp 18 10/30/18 04:30 BP 117/64 10/30/18 04:30 Pulse Ox 97 10/30/18 04:30 Intake & Output 10/29/18 10/30/18 10/30/18 18:59 06:59 18:59 Intake Total 470 600 200 Output Total 0 Balance 470 600 200 Intake: IV 220 Magnesium Sulfate-D5w Pmx 200 1 gm In Dextrose/Water 1 100ml.bag @ 100 mls/hr IVPB Q1H SAVANNA Rx#: [id number] Sodium Chloride 0.9% 1, 20 000 ml @ 100 mls/hr IV . Q10H STA Rx#:[id number] Oral 250 600 200 Output: Urine 0 Other: Voiding Method Toilet Toilet Toilet # Voids 1 1 # Bowel Movements 1 - Exam GENERAL EXAM: Alert, active, 33-year-old male patient, comfortable in no apparent distress. On room air. HEAD: Normocephalic. EYES: Normal reaction of pupils, equal size. NOSE: Clear with pink turbinates. THROAT: No erythema or exudates. NECK: No masses, no JVD. CHEST: No chest wall deformity. LUNGS: Equal air entry with no crackles, wheeze, rhonchi or dullness. CVS: S1 and S2 normal with no audible murmur, regular rhythm. ABDOMEN: No hepatosplenomegaly, normal bowel sounds, no guarding or rigidity. SPINE: No scoliosis or deformity SKIN: No rashes CENTRAL NERVOUS SYSTEM: No focal deficits, tone is normal in all 4 extremities. EXTREMITIES: There is no peripheral edema. No clubbing, no cyanosis. Peripheral pulses are intact. - Labs CBC & Chem 7: 10/29/18 04:40 10/29/18 04:40 Assessment and Plan Assessment: Impression: #1 Acute hypoxic respiratory failure secondary to an episode of aspiration on food products. Recovered. On room air. #2 Previous history of IV drug abuse. #3 Polysubstance abuse. #4 Chronic and ongoing tobacco dependence. #5 History of L2 fracture. Plan: The patient was seen and evaluated by Dr. Fortune. He is stable from the pulm onary standpoint for discharge. He is educated regarding the importance of complete smoking cessation. Polysubstance abuse cessation. Cautious eating habits. We'll see the patient on as-needed basis. I, the cosigning physician, performed a history & physical examination of the patient. Lungs sounds are clear. Maintaining good O2 saturations in the 90s on room air. I discussed the assessment and plan of care with my nurse practitioner, Anna Saunders. I attest to the above note as dictated by her.
--- NOTE | 2018-10-30 15:08 | P.DS ---
Providers Date of admission: 10/28/18 18:15 Expected date of discharge: 10/30/18 Attending physician: Mckayla Hurley Consults: 10/28/18 18:15 Consult Physician Routine Consulting Provider: Siddharth Fortune Reason/Comments: respFail Do you want consulting provider notified?: Yes Primary care physician: Juan Huang [facility] Course: This is a 33-year-old gentleman with no current PCP, has seen Dr. Marcano in the past. Comes in by EMS, secondary to acute choking on food at [employer], this was witnessed by a girlfriend, who called EMS, and was subsequently sent to the emergency room. He was noticed that he was not breathing during the episode, unknown downtime, EMS stated that the patient appears to have foot numbness mouth, unable to get intubation, patient was initially cyanotic, EMS has provided some bagging. Patient denies any dysphagia or aspirated in the past this would be the first episode. He was subsequently seen in the emergency room, he was obtunded and not responding, he responded to Narcan, the ER decided to keep the patient intubated secondary to pulmonary edema likely cardiogenic, and was kept on oxygen until transfer to ICU. He had copious amounts off foot that is suctioned he was hypoxemic still in the emergency room, started started on Solu-Medrol and IV antibiotics empirically treatment consult the wound with a critical care medicine, Dr. Fortune In the ER, WBC count 17.4 hemoglobin 7.2 platelet 357 CO2 23 creatinine 1.07 glucose 219 lactic acid 4.8 phosphorus 7.1 ALT AST slightly elevated with normal alkaline phos urine drug screen positive for opiates urine WBC of 5 EKG shows sinus tachycardia heart rate of 103 chest x-ray bilateral upper lobe infiltrate, patient was admitted secondary to large bolus of regurgitated food with choking episode, episode off apnea, noncardiogenic pulmonary edema, aspiration pneumonitis, possibility of heroin overdose 10/30: [facility] Patient denies having any chest pain, cough, shortness of breath, wheezing, difficulty swallowing. Patient has been cleared for discharge by Dr. Fortune. Patient will be discharged home today in stable condition. Discharge diagnoses: 1. Large volume aspiration caused by acute choking episode, causing acute respiratory arrest transient 2. Aspiration pneumonitis with upper lobe infiltrates, with suspected pulmonary edema, and chemical pneumonitis, 3. Personal history of IV drug use, last use was of methamphetamine January 2017 4. Pharyngitis and pleurisy most likely secondary to aspiration events 5. History of chronic pain, knees and low back, old L2 fracture 6. Current use of tobacco and nicotine dependency 7. Urine drug screen positive for opiates Discharge plan: Home Impression and plan of care have been directed as dictated by the signing physician. Candy Gloria nurse practitioner acting as scribe for signing physician. Patient Condition at Discharge: Good Plan - Discharge Summary Discharge Rx Participant: Yes New Discharge Prescriptions: New Albuterol Sulfate [Proventil Hfa] 1 - 2 puff INHALATION Q6HR PRN #1 inhaler PRN Reason: Wheezing Discharge Medication List Albuterol Sulfate [Proventil Hfa] 1 - 2 puff INHALATION Q6HR PRN #1 inhaler 10/30/18 [Rx] Follow up Appointment(s)/Referral(s): Siddharth Fortune DO [Doctor of Osteopathic Medicine] - As Needed Juan Atkinson MD [Primary Care Provider] - 1 Week (office closed) Patient Instructions/Handouts: Aspiration Pneumonia (DC) Discharge/Stand Alone Forms: Work/School Release Discharge Disposition: HOME SELF-CARE
== END 2018-10-30 13:12 | disposition home or self-care (01) | DRG 208 ==
LOC: EC 16:57 → 2SICU 18:15 → 4MS4W 10-29 21:55
PROVIDERS: ADMIT Family Medicine; ATTEND Family Medicine
PROC: 5A1945Z Respiratory Ventilation, 24-96 Consecutive Hours (ICD-10-PCS; principal; 2018-10-28)
PROC: 0BH18EZ Insertion of Endotracheal Airway into Trachea, Via Natural or Artificial Opening Endoscopic (ICD-10-PCS; principal; 2018-10-28)
DX: J69.0 Pneumonitis due to inhalation of food and vomit (principal); J96.01 Acute respiratory failure with hypoxia; J81.1 Chronic pulmonary edema; J02.9 Acute pharyngitis, unspecified; F17.210 Nicotine dependence, cigarettes, uncomplicated; F31.9 Bipolar disorder, unspecified; F41.9 Anxiety disorder, unspecified; G89.29 Other chronic pain; R09.1 Pleurisy; Z79.899 Other long term (current) drug therapy; F11.10 Opioid abuse, uncomplicated
CPT/HCPCS: 31500; 36415; 71045; 80053; 80306; 81001; 82550; 83605; 83735; 83880; 84100; 84484; 85025; 85610; 85730; 93005; 94002; 96361; 96365; 96374; 96375; 99291

== ENCOUNTER → 2019-10-08 | Outpatient (CLI) | payer OTHER ==
--- NOTE | 2019-10-08 07:27 | US ---
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 Chronic Hep C EXAM MEASUREMENTS: Liver Length: 15.7 cm Gallbladder Wall: 0.2 cm CBD: 0.6 cm Right Kidney: 13.1 x 4.1 x 5.6 cm Pancreas: non-vascular, hypoechoic area near head/body= 1.3 x 0.9 x 1.6 cm Liver: wnl Gallbladder: wnl Evidence for sonographic Bush's sign: No CBD: wnl Right Kidney: wnl, lower pole gassed out IMPRESSION: 1. Hypoechoic 1.6 cm area near the body of pancreas. Underlying mass or adenopathy not excluded. Sampson mmend CT of the abdomen and pelvis. 2. Liver appears homogeneous without evidence of focal mass. 3. CBD at the upper limits of normal measuring 6 mm.
== END | disposition home or self-care (01) ==
LOC: RADUSWWP 06:59
PROVIDERS: ATTEND Internal Medicine Gastroenterology
DX: K86.89 Other specified diseases of pancreas (principal); B18.2 Chronic viral hepatitis C
CPT/HCPCS: 76705

== ENCOUNTER → 2019-12-10 | Outpatient (CLI) | payer OTHER ==
--- NOTE | 2019-12-13 08:18 | CT ---
EXAMINATION TYPE: CT abdomen w con DATE OF EXAM: 12/10/2019 COMPARISON: 11/05/2013, ultrasound 10/08/2019 HISTORY: Pancreatic mass. Pancreatic protocol. Hx Hep C. CT DLP: 576.80 mGycm Automated exposure control for dose reduction was used. TECHNIQUE: Helical acquisition of images was performed from the lung bases through the top of iliac crest to include entire abdomen. CONTRAST: Performed without Oral Contrast and with IV Contrast, patient injected with 120 mL of Isovue 370. FINDINGS: LUNG BASES: No significant abnormality is appreciated. LIVER/GB: There is a 9 mm posterior segment right lobe hypodense lesion. Small area of infiltration i s seen adjacent to the ligamentum teres. There is a 1.1 cm soft tissue nodule near the margarito hepatis and peripancreatic region which may represent a small lymph node corresponding to the ultrasound abno rmality. No definite pancreatic lesion seen. PANCREAS: No significant abnormality is seen. SPLEEN: No significant abnormality is seen. ADRENALS: No significant abnormality is seen. KIDNEYS: Hypodensity within the left kidney too small to characterize. BOWEL: No significant abnormality is seen. LYMPH NODES: In the peripancreatic region there is a 1.1 cm soft tissue nodule likely related to a sm all lymph node. OSSEOUS STRUCTURES: Hypertrophic and degenerative changes of the spine. There appears to be a chroni c appearing wedge fracture at the suspected L2 segment. FREE AIR: No free air is visualized. OTHER: Visualized aorta of normal caliber IMPRESSION: 1. No definite pancreatic lesion. There is a 1.1 cm soft tissue nodule in the peripancreatic region n ear the margarito hepatis which could represent a small area of lymphadenopathy. MRI follow-up recommende d. 2. Indeterminate 8 mm lesion in the posterior segment of the right lobe of the liver also could be ev aluated with MRI.
== END | disposition home or self-care (01) ==
LOC: RADCTMAIN 18:31
PROVIDERS: ATTEND Physician Assistant
DX: K86.89 Other specified diseases of pancreas (principal)
CPT/HCPCS: 74160; Q9967

== ENCOUNTER 2023-06-04 13:03 | Inpatient (IN) | payer OTHER ==
[2023-06-04] MEDS ORDERED: VANCOMYCIN IV PER PHARMACY 1 EACH MISC MISCELLANE PRN (13:10)
--- NOTE | 2023-06-04 13:28 | ED ---
General Adult HPI - General Chief complaint: Skin/Abscess/Foreign Body Stated complaint: L arm swelling Time Seen by Provider: 06/04/23 13:05 Source: patient, EMS, RN notes reviewed, old records reviewed Mode of arrival: EMS - History of Present Illness Initial comments: This is a 37-year-old male who presents to the emergency department as a transfer from [facility]. Patient states about 5 days ago he started having some swelling and redness in his hand and gotten progressively worse. Patient states he went to [facility] yesterday they wanted to admit him to the hospital but he left AGAINST MEDICAL ADVICE. Patient went back there today because it continued to get worse and they transferred to our facility. Patient states he thinks he hurt it when he was using a ratchet about 5 days ago but is not sure. 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 Patient denies any fevers patient denies any chills. Patient states the hand is just getting increasingly painful and swollen. Patient denies any other problems at this time - Related Data Home Medications Medication Instructions Recorded Confirmed Ibuprofen [Motrin] 800 mg PO QID PRN 06/04/23 06/04/23 Sulfamethox-Tmp 800-160Mg [Bactrim 2 tab PO Q12HR 06/04/23 06/04/23 DS 800-160 mg] Allergies Allergy/AdvReac Type Severity Reaction Status Date / Time No Known Allergies Allergy Verified 06/04/23 14:08 Review of Systems ROS Statement: Those systems with pertinent positive or pertinent negative responses have been documented in the HPI. ROS Other: All systems not noted in ROS Statement are negative. Past Medical History Past Medical History: No Reported History Additional Past Medical History / Comment(s): L2 FRACTURE; CHRONIC BACK PAIN History of Any Multi-Drug Resistant Organisms: None Reported Additional Past Surgical History / Comment(s): bilateral knees, right shoulder Past Anesthesia/Blood Transfusion Reactions: No Reported Reaction Device Placement Date:: Substance abuse history, history of methamphetamine use, last use was 02/16 Past Psychological History: Anxiety Past Alcohol Use History: Rare Past Drug Use History: Heroin, Prescription Drug Abuse - Past Family History Father Family Medical History: No Reported History Mother Family Medical History: No Reported History Sister(s) Family Medical History: No Reported History Daughter(s) Family Medical History: No Reported History Son(s) Family Medical History: No Reported History General Exam - General Exam Comments Initial Comments: GENERAL: Patient is well-developed and well-nourished. Patient is nontoxic and well- hydrated and is in moderate distress. ENT: Neck is soft and supple. No significant lymphadenopathy is noted. Oropharynx is clear. Moist mucous membranes. Neck has full range of motion without eliciting any pain. EYES: The sclera were anicteric and conjunctiva were pink and moist. Extraocular movements were intact and pupils were equal round and reactive to light. Eyelids were unremarkable. PULMONARY: Unlabored respirations. Good breath sounds bilaterally. No audible rales rhonchi or wheezing was noted. CARDIOVASCULAR: There is a regular rate and rhythm without any murmurs gallops or rubs. ABDOMEN: Soft and nontender with normal bowel sounds. SKIN: Skin is clear with no lesions or rashes and otherwise unremarkable. NEUROLOGIC: Patient is alert and oriented x3. Cranial nerves II through XII are grossly intact. Motor and sensory are also intact. Normal speech, volume and content. Symmetrical smile. MUSCULOSKELETAL: Left hand is very swollen erythematous on the posterior thenar area as well as in the center of his palm there does appear to be some drainage from the center of his palm. It is extremely tender to touch in all areas of the hand. Patient does have sensation to all fingertips. Patient does have cap refill that is slow about 3 seconds to all fingertips. LYMPHATICS: No significant lymphadenopathy is noted PSYCHIATRIC: Normal psychiatric evaluation. Course Vital Signs 06/04/23 06/04/23 06/04/23 13:06 14:58 16:20 Temperature 98.6 F 99.8 F H Pulse Rate 116 H 116 H 120 H Respiratory 20 22 22 Rate Blood Pressure 151/91 134/88 141/91 O2 Sat by Pulse 98 96 96 Oximetry Medical Decision Making - Medical Decision Making EKG is interpreted by myself but EKG shows a sinus tachycardia at 109 bpm parable 132 QRS is 104 QT interval is 337 QTc is 401. Patient's EKG shows no ST segment elevation or depression. Was pt. sent in by a medical professional or institution (, PA, SUPERVISOR LOGGING, urgent care, hospital, or skilled nursing...) When possible be specific @ -Patient was transferred from [facility] Did you speak to anyone other than the patient for history (EMS, parent, family, police, friend...)? What history was obtained from this source @ -The ER physician spoke with us prior to transfer Did you review nursing and triage notes (agree or disagree)? Why? @ -I reviewed and agree with nursing and triage notes Were old charts reviewed (outside hosp., previous admission, EMS record, old EKG, old radiological studies, urgent care reports/EKG's, skilled nursing records)? Report findings @ -I reviewed the lab work and x-rays and CT scan from [facility] that were done earlier today. Differential Diagnosis (chest pain, altered mental status, abdominal pain women, abdominal pain men, vaginal bleeding, weakness, fever, dyspnea, syncope, headache, dizziness, GI bleed, back pain, seizure, CVA, palpatations, mental health, musculoskeletal)? @ -Abscess of the hand, cellulitis, compartment syndrome, this is not an all- inclusive list EKG interpreted by me (3pts min.). @ -As above X-rays interpreted by me (1pt min.). @ -None done CT interpreted by me (1pt min.). @ -None done U/S interpreted by me (1pt. min.). @ -None done What testing was considered but not performed or refused? (CT, X-rays, U/S, labs)? Why? @ -None What meds were considered but not given or refused? Why? @ -None Did you discuss the management of the patient with other professionals (professionals i.e. , PA, SUPERVISOR LOGGING, lab, RT, psych nurse, addiction social worker, vacuum frame operator, teacher, supervisory cbp officer, planning manager)? Give summary @ -I spoke with the [facility] he agreed that they would be on consult with patient and the patient will go to the OR tomorrow. Immanuel came down immediately and saw the patient in the emergency room. I spoke with Dr. Porras who agreed to admit the patient Was smoking cessation discussed for >3mins.? @ -No Was critical care preformed (if so, how long)? @ -No Were there social determinants of health that impacted care today? How? (Homelessness, low income, unemployed, alcoholism, drug addiction, transportation, low edu. Level, literacy, decrease access to med. care, intermediate, rehab)? @ -No Was there de-escalation of care discussed even if they declined (Discuss DNR or withdrawal of care, Hospice)? DNR status @ -No What co-morbidities impacted this encounter? (DM, HTN, Smoking, COPD, CAD, Cancer, CVA, ARF, Chemo, Hep., AIDS, mental health diagnosis, sleep apnea, morbid obesity)? @ -None Was patient admitted / discharged? Hospital course, mention meds given and route, prescriptions, significant lab abnormalities, going to OR and other pertinent info. @ -Patient came in I gave the patient Zosyn and ordered vancomycin. I also gave the patient 2 L of fluid. Undiagnosed new problem with uncertain prognosis? @ -No Drug Therapy requiring intensive monitoring for toxicity (Heparin, Nitro, Insulin, Cardizem)? @ -No Were any procedures done? @ -No Diagnosis/symptom? @ -Infected hand Acute, or Chronic, or Acute on Chronic? @ -Acute Uncomplicated (without systemic symptoms) or Complicated (systemic symptoms)? @ -Complicated Side effects of treatment? @ -No Exacerbation, Progression, or Severe Exacerbation? @ -No Poses a threat to life or bodily function? How? (Chest pain, [place], [place], pneumonia, PE, COPD, DKA, ARF, appy, cholecystitis, CVA, Diverticulitis, Homicidal, Suicidal, threat to staff... and all critical care pts) @ -Yes this could lead to sepsis and endorgan dysfunction - Lab Data Result diagrams: 06/04/23 14:17 06/04/23 14:17 Disposition Clinical Impression: Infection of left hand Disposition: ADMITTED IP TO THIS [facility] Time of Disposition: 13:28
[2023-06-04] MEDS: SODIUM CHLORIDE 0.9% 500 ML 500 ML IV SCH (14:13)
[2023-06-04] MEDS: PIPERACILLIN-TAZOBACTAM 3.375 GM in SODIUM CHLORIDE 0.9% 100 ML IVPB STA (14:14)
[2023-06-04] MEDS: SODIUM CHLORIDE 0.9% 1,000 ML IV ONE (14:28)
[2023-06-04 14:59] LABS: Basophils # (A) 0.1 k/uL (0-0.2); Basophils % (A) 0 %; Eosinophils # (A) 0.2 k/uL (0-0.7); Eosinophils % (A) 1 %; HCT 44.5 % (39.0-53.0); HGB 14.6 gm/dL (13.0-17.5); Lymphocytes % (A) 12 %; MCH 29.7 pg (25.0-35.0); MCHC 32.9 g/dL (31.0-37.0); MCV 90.2 fL (80.0-100.0); Mean Platelet Volume 7.8; Monocytes # (A) 1.2 k/uL (0-1.0); Monocytes % (A) 7 %; Neutrophils % (A) 78 %; Platelet Count 219 k/uL (150-450); RBC 4.93 m/uL (4.30-5.90); RDW 12.3 % (11.5-15.5); WBC 16.7 k/uL (3.8-10.6)
[2023-06-04 15:10] LABS: INR 0.9 (<1.2); Partial Thromboplastin Time 27.8 sec (22.0-30.0); Prothrombin Time 10.4 sec (10.0-12.5)
[2023-06-04 15:16] LABS: ALT 107 U/L (4-49); AST 49 U/L (17-59); African American GFR (CKD) >90 (>60 ml/min/1.73 sqM); Albumin 3.7 g/dL (3.5-5.0); Alkaline Phosphatase 85 U/L (38-126); Anion Gap 9 mmol/L; Blood Urea Nitrogen 12 mg/dL (9-20); Calcium 8.4 mg/dL (8.4-10.2); Carbon Dioxide 20 mmol/L (22-30); Chloride 106 mmol/L (98-107); Glucose 97 mg/dL (74-99); Non-African American GFR(CKD) >90 (>60 ml/min/1.73 sqM); Potassium 4.6 mmol/L (3.5-5.1); Sodium 135 mmol/L (137-145); Total Bilirubin 0.9 mg/dL (0.2-1.3); Total Protein 6.8 g/dL (6.3-8.2)
[2023-06-04] MEDS: LORazepam 2 MG/ML INJ IV PRN (15:25)
--- NOTE | 2023-06-04 16:38 | P.CNOR ---
History of Present Illness - [facility] Consult date: 06/04/23 Consult reason: other (Left hand infection) History of present illness: Patient is an 37-year-old male who presented to [facility] on 06/04/2023 after being transferred over from [facility] with regards to a right hand infection. Apparently the patient was initially evaluated at [facility] on 06/03/2023, he then left AMA. He returned back to the hospital today with worsening swelling and discomfort to the hand. [facility] emergency room staff contacted me regarding this patient, stating that after initial evaluation at [facility] they recommended transfer to our hospital for likely surgical intervention. Patient was evaluated in the emergency room at bedside, he is resting c omfortably. He notes most discomfort on the palmar aspect of the left hand. There is significant swelling noted both on the dorsum and palmar aspect of the hand, this to include the digits. There is erythema noted in the palmar aspect of the hand and also on the dorsal aspect worst area being between the first and second digit webspace. Patient denies any obvious numbness or tingling to the fingers at this time. Patient cannot remember a specific injury, he states that he was working with a wrench about 5 days ago when he had some discomfort in that area, he cannot remember any penetrating type trauma. He states over the last 5 days or so the pain, swelling and redness has worsened. Patient denies any previous orthopedic surgery to the left upper extremity. 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 Currently the patient denies any headaches, lightheadedness, chest pain or shortness of breath. Review of Systems Constitutional: Reports as per HPI Past Medical History Past Medical History: No Reported History Additional Past Medical History / Comment(s): L2 FRACTURE; CHRONIC BACK PAIN History of Any Multi-Drug Resistant Organisms: None Reported Additional Past Surgical History / Comment(s): bilateral knees, right shoulder Past Anesthesia/Blood Transfusion Reactions: No Reported Reaction Device Placement Date:: Substance abuse history, history of methamphetamine use, last use was 02/16 Past Psychological History: Anxiety Past Alcohol Use History: Rare Past Drug Use History: Heroin, Prescription Drug Abuse - Past Family History Father Family Medical History: No Reported History Mother Family Medical History: No Reported History Sister(s) Family Medical History: No Reported History Daughter(s) Family Medical History: No Reported History Son(s) Family Medical History: No Reported History Medications and Allergies Home Medications Medication Instructions Recorded Confirmed Type Ibuprofen [Motrin] 800 mg PO QID PRN 06/04/23 06/04/23 History Sulfamethox-Tmp 800-160Mg [Bactrim 2 tab PO Q12HR 06/04/23 06/04/23 History DS 800-160 mg] Allergies Allergy/AdvReac Type Severity Reaction Status Date / Time No Known Allergies Allergy Verified 06/04/23 14:08 Physical Examination Left upper extremity: Obvious soft tissue swelling and redness is present throughout the left hand, worsening in the thenar eminence on the dorsal side and between the first and second digit in the webspace on the dorsal aspect There is a small wound noted on the palmar aspect of the hand near the third and fourth metacarpal, there is small , no purulence noted in that region Patient is able to wiggle all the fingers with minimal difficulty, his sensation throughout the hand both on the dorsum and palmar aspect is intact Extension and flexion of the fingers does reproduce pain throughout the hand Radial and ulnar pulse are 2+ No tenderness is appreciated with palpation on the dorsal and volar aspect of the forearm. Range of motion of the elbow was intact, there is no pain reproduced with this. Results - Labs Labs: Abnormal Lab Results - Last 24 Hours (Table) 06/04/23 06/04/23 Range/Units 14:17 14:17 WBC 16.7 H (3.8-10.6) k/uL Neutrophils # 13.0 H (1.3-7.7) k/uL Monocytes # 1.2 H (0-1.0) k/uL Sodium 135 L (137-145) mmol/L Carbon Dioxide 20 L (22-30) mmol/L ALT 107 H (4-49) U/L H & H 06/04/23 Range/Units 14:17 Hgb 14.6 (13.0-17.5) gm/dL Hct 44.5 (39.0-53.0) % Coagulation 06/04/23 Range/Units 14:17 INR 0.9 (<1.2) Result Diagrams: 06/04/23 14:17 06/04/23 14:17 - Diagnostic results Wrist/Hand x-ray: report reviewed, image reviewed Wrist/Hand CT: report reviewed, image reviewed Assessment and Plan Assessment: Left hand cellulitis Left hand palmar abscess Leukocytosis Other medical comorbidities Plan: I was able to discuss the case, this to include both physical exam findings and imaging studies my attending Dr. Pastor. We are recommending surgery, more specifically an incision and drainage with irrigation and procedure on the left hand on 06/05/2023. cultures will be taken at the time of surgery. Risk and benefits of the procedure were discussed with the patient, this to include but not and for worsening infection, blood loss, neurovascular injury, and adequate healing of soft tissues, need for further surgery. Patient is in good understanding would like to proceed Recommend Hibiclens soaks 3x per day Recommend IV antibiotics NPO after midnight GI and DVT prophylaxis per primary medical service Other medical specialty recommendations appreciated Further recommendations to follow Time with Patient: Less than 30
[2023-06-04] MEDS ORDERED: ACETAMINOPHEN TAB 325 MG TAB PO PRN (17:38)
[2023-06-04] MEDS: HYDROmorphone 1 MG/ML 1 ML SYRINGE IVP PRN (18:03)
[2023-06-04] MEDS: KETOROLAC 15 MG/ML 1 ML VIAL IVP SCH (18:03)
[2023-06-04] MEDS: HYDROcodone/APAP 5-325MG 1 EACH TAB PO PRN (18:05)
[2023-06-04] MEDS: SODIUM CHLORIDE 0.9% 1,000 ML IV SCH (18:36)
[2023-06-04] MEDS: VANCOMYCIN 1,750 MG in SODIUM CHLORIDE 0.9% 500 ML 500 ML IVPB SCH (19:01)
--- NOTE | 2023-06-04 20:11 | P.HPIM ---
Review of Systems Patient is admiteded with left hand swelling , on reviewing the records it looks like patient was at [facility] on 06/02/2023 for redness pain and swelling of the left hand of 2 days duration at that time. Also record indicates that patient left AMA that day. Patient seen and examined in the emergency room. Patient presents because of severe left hand swelling redness and difficulty moving sever finger and left wrist associated with milder swelling of the left forearm with mild erythema.patient states that his injury started 6-day ago prior to this hospitalization. 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 He cannot remember more details. He denies fever or chills. No chest pain dyspnea. He states he had diarrhea and vomiting 1 time each yesterday. He denies dysuria or urgency. No abdominal pain. No headache dizziness weakness or numbness. He denies smoking alcohol or illicit drugs Past Medical History Past Medical History: No Reported History Additional Past Medical History / Comment(s): L2 FRACTURE; CHRONIC BACK PAIN History of Any Multi-Drug Resistant Organisms: None Reported Additional Past Surgical History / Comment(s): bilateral knees, right shoulder Past Anesthesia/Blood Transfusion Reactions: No Reported Reaction Device Placement Date:: Substance abuse history, history of methamphetamine use, last use was 02/16 Past Psychological History: Anxiety Past Alcohol Use History: Rare Past Drug Use History: Heroin, Prescription Drug Abuse - Past Family History Father Family Medical History: No Reported History Mother Family Medical History: No Reported History Sister(s) Family Medical History: No Reported History Daughter(s) Family Medical History: No Reported History Son(s) Family Medical History: No Reported History Medications and Allergies Home Medications Medication Instructions Recorded Confirmed Type Ibuprofen [Motrin] 800 mg PO QID PRN 06/04/23 06/04/23 History Sulfamethox-Tmp 800-160Mg [Bactrim 2 tab PO Q12HR 06/04/23 06/04/23 History DS 800-160 mg] Allergies Allergy/AdvReac Type Severity Reaction Status Date / Time No Known Allergies Allergy Verified 06/04/23 14:08 Physical Exam Vitals: Vital Signs Temp Pulse Resp BP Pulse Ox 06/04/23 16:20 99.8 F H 120 H 22 141/91 96 06/04/23 14:58 116 H 22 134/88 96 06/04/23 13:06 98.6 F 116 H 20 151/91 98 Intake and Output 06/04/23 06/04/23 06/04/23 06:59 14:59 22:59 Other: Weight 109.769 kg -GENERAL: The patient is alert and oriented x3, not in any acute distress. Well developed, well nourished. Obese HEENT: Pupils are round and equally reacting to light. EOMI. No scleral icterus. No conjunctival pallor. Normocephalic, atraumatic. No pharyngeal erythema. No thyromegaly. CARDIOVASCULAR: S1 and S2 present. No murmurs, rubs, or gallops. PULMONARY: Chest is clear to auscultation, no wheezing , no crackles. ABDOMEN: Soft, nontender, nondistended, normoactive bowel sounds. No palpable organomegaly. MUSCULOSKELETAL: No joint swelling or deformity. -EXTREMITIES: No cyanosis, clubbing, or pedal edema. Left hand severely swollen erythematous tender with loss of function. There is limited ability to flex or extend fingers and left wrist. Also there is significant swelling of the left forearm and erythema and mild tenderness to a lesser extent the left hand. There is no open wounds or purulent discharge but there is some area of thickening in the middle of the hand. No other discolorations NEUROLOGICAL: Gross neurological examination did not reveal any focal deficits. SKIN: No rashes. no petechiae. Results CBC & Chem 7: 06/04/23 14:17 06/04/23 14:17 Labs: Abnormal Lab Results - Last 24 Hours (Table) 06/04/23 06/04/23 06/04/23 Range/Units 14:17 14:17 14:17 WBC 16.7 H (3.8-10.6) k/uL Neutrophils # 13.0 H (1.3-7.7) k/uL Monocytes # 1.2 H (0-1.0) k/uL Sodium 135 L (137-145) mmol/L Carbon Dioxide 20 L (22-30) mmol/L ALT 107 H (4-49) U/L C-Reactive Protein 5.4 H (<1.0) mg/dL Assessment and Plan Assessment: Acute severe left hand cellulitis with possible severe infection of the deep tissue extending to the left arm Sepsis with fever and leukocytosis Elevated inflammatory markers Nonadherence to management as he left AMA. Obesity Plan: It was explained to the patient that patient verbalized understanding given the patient severe degree of hand infection, there might be some damage. Patient already has severe loss of function because of the acute condition. Continue with broad-spectrum antibiotic, currently on IV vancomycin and Zosyn, infectious disease team consult, deferred. Orthopedic team already evaluated the patient and accepted the transfer to this facility. Patient to be evaluated for surgical intervention. Continue with aggressive fluid hydration, normal saline 130 mL/h Pain management. Check ultrasound of the upper extremity to rule out thrombotic disease Labs and medication were reviewed.. Continue same treatment. Continue with symptomatic treatment. Resume home medication. Monitor labs and vitals. DVT and GI prophylaxis. Further recommendations as per clinical course of the patient DVT prophylaxis: Subcutaneous heparin GI Prophylaxis: Pepcid PT/OT: Pending deferred now. Prognosis is guarded management plan discussed with the patient and he verbalized understanding and acceptance
[2023-06-04] MEDS: HEPARIN SODIUM,PORCINE 5,000 UNIT/ML 1 ML VIAL SQ SCH (21:09)
[2023-06-04] MEDS: FAMOTIDINE 20 MG/2 ML VIAL IV SCH (21:09)
--- NOTE | 2023-06-04 23:24 | US ---
EXAMINATION TYPE: US venous doppler duplex UE DATE OF EXAM: 06/04/2023 COMPARISON: NONE CLINICAL INDICATION: Male, 37 years old with history of pain and swollen forearm; Left hand/forearm c ellulitis. No hx of DVT. Not on blood thinners SIDE PERFORMED: Left TECHNIQUE AND FINDINGS: Axial sonography with color Doppler and spectral waveform analysis was performed of the venous system of the left upper extremity, including the internal jugular vein, subclavian vein, axillary vein, br achial vein, basilic vein, cephalic vein, radial veins and ulnar veins with compression used where ap propriate. There is normal color Doppler flow with preserved vascular waveforms and normal compressibility seen. Left Arm: No evidence for DVT IMPRESSION: No evidence of left upper extremity DVT.
[2023-06-04] MEDS: PIPERACILLIN-TAZOBACTAM 3.375 GM in SODIUM CHLORIDE 0.9% 100 ML IVPB SCH (23:36)
--- NOTE | 2023-06-05 09:25 | P.PN ---
Subjective Patient is admiteded with left hand swelling , on reviewing the records it looks like patient was at [facility] on 06/02/2023 for redness pain and swelling of the left hand of 2 days duration at that time. Also record indicates that patient left AMA that day. Patient seen and examined in the emergency room. Patient presents because of severe left hand swelling redness and difficulty moving sever finger and left wrist associated with milder swelling of the left forearm with mild erythema.patient states that his injury started 6-day ago prior to this hospitalization. 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 He cannot remember more details. He denies fever or chills. No chest pain dyspnea. He states he had diarrhea and vomiting 1 time each yesterday. He denies dysuria or urgency. No abdominal pain. No headache dizziness weakness or numbness. He denies smoking alcohol or illicit drugs 06/05/2023 Patient still complaining from left hand swelling redness and tenderness with limitation of movement Today showing some improvement compared to yesterday after he was started on IV vancomycin and Zosyn, slightly swollen there is a fluctuant area on the medial half of his palm. His left forearm is also less swollen Ultrasound of the upper extremity is negative for deep venous thrombosis, I reviewed the test by myself Patient remains on normal saline at 30 mL/h as well as broad-spectrum antibiotic Infectious disease was consulted Repeat labs this morning are still pending Patient also evaluated by orthopedic surgery team and plan for incision and debridement possibly today From medical perspective there is no absolute contraindication to proceed with surgical intervention , although there are some risks but benefits more than the risk. Review of systems CONSTITUTIONAL: No fever, no malaise, no fatigue. HEENT: No recent visual problems or hearing problems. Denied any sore throat. CARDIOVASCULAR: No orthopnea, PND, no palpitations, no syncope. PULMONARY: No shortness of breath, no cough, no hemoptysis. GASTROINTESTINAL: No diarrhea, no nausea, no vomiting, no abdominal pain. Normoactive bowel sounds. NEUROLOGICAL: No headaches, no weakness, no numbness. HEMATOLOGICAL: Denies any bleeding or petechiae. GENITOURINARY: Denies any burning micturition, frequency, or urgency. ENDOCRINE: Denies any polyuria or polydipsia. Active Medications Generic Name Dose Route Start Last Admin Trade Name Freq PRN Reason Stop Dose Admin Acetaminophen 325 mg 06/04/23 17:38 Acetaminophen Tab 325 Mg Tab PO Q6HR PRN Fever and/ or Mild Pain Hydrocodone Bitart/Acetaminophen 1 each 06/04/23 17:38 06/04/23 18:05 Hydrocodone/Apap 5-325mg 1 Each Tab PO 1 each Q6HR PRN Administration Severe Breakthrough Pain Famotidine 20 mg 06/04/23 21:00 06/05/23 08:25 Famotidine 20 Mg/2 Ml Vial IV 20 mg Q12HR SAVANNA Administration Heparin Sodium (Porcine) 5,000 unit 06/04/23 21:00 06/05/23 08:25 Heparin Sodium,Porcine 5,000 Unit/Ml 1 Ml Vial SQ Not Given Q12HR SAVANNA Hydromorphone HCl 1 mg 06/04/23 17:46 06/04/23 21:09 Hydromorphone 1 Mg/Ml 1 Ml Syringe IVP 1 mg Q3HR PRN Administration Pain Piperacillin Sod/Tazobactam 100 mls @ 25 mls/hr 06/05/23 00:00 06/05/23 08:25 Sod 3.375 gm/ Sodium Chloride IVPB 25 mls/hr Q8HR SAVANNA Administration Protocol Sodium Chloride 1,000 mls @ 130 mls/hr 06/04/23 17:45 06/05/23 02:49 Saline 0.9% IV Not Given .[id number] SAVANNA Vancomycin HCl 1,750 mg/ 500 mls @ 167 mls/hr 06/04/23 18:00 06/05/23 03:05 Sodium Chloride IVPB 167 mls/hr Q8H SAVANNA Administration Ketorolac Tromethamine 15 mg 06/04/23 18:00 06/05/23 05:22 Ketorolac 15 Mg/Ml 1 Ml Vial IVP 06/09/23 17:48 15 mg Q6HR SAVANNA Administration Lorazepam 1 mg 06/04/23 15:17 Lorazepam 2 Mg/Ml Inj IV ONCE PRN Anxiety Miscellaneous Information 0 each 06/05/23 17:00 Vancomycin Trough Due 1 Each Misc MISCELLANE 06/05/23 17:01 DIRECTED ONE Objective - Vital Signs Vital signs: Vital Signs Temp 99.3 F 06/05/23 07:06 Pulse 125 H 06/05/23 07:06 Resp 16 06/05/23 07:06 BP 154/93 06/05/23 07:06 Pulse Ox 98 06/05/23 07:06 FiO2 Intake & Output 06/04/23 06/05/23 06/05/23 18:59 06:59 18:59 Weight 109.769 kg 109.769 kg Other: # Voids 2 - Exam -GENERAL: The patient is alert and oriented x3, not in any acute distress. Well developed, well nourished. Obese HEENT: Pupils are round and equally reacting to light. EOMI. No scleral icterus. No conjunctival pallor. Normocephalic, atraumatic. No pharyngeal erythema. No thyromegaly. CARDIOVASCULAR: S1 and S2 present. No murmurs, rubs, or gallops. PULMONARY: Chest is clear to auscultation, no wheezing , no crackles. ABDOMEN: Soft, nontender, nondistended, normoactive bowel sounds. No palpable organomegaly. MUSCULOSKELETAL: No joint swelling or deformity. -EXTREMITIES: No cyanosis, clubbing, or pedal edema. Left hand severely swollen erythematous tender with loss of function. There is limited ability to flex or extend fingers and left wrist. Also there is significant swelling of the left forearm and erythema and mild tenderness to a lesser extent the left hand. There is no open wounds or purulent discharge but there is some area of thickening in the middle of the hand. No other discolorations (improved compar ed to yesterday) NEUROLOGICAL: Gross neurological examination did not reveal any focal deficits. SKIN: No rashes. no petechiae. - Labs CBC & Chem 7: 06/04/23 14:17 06/04/23 14:17 Labs: Abnormal Lab Results - Last 24 Hours (Table) 06/04/23 06/04/23 06/04/23 Range/Units 14:17 14:17 14:17 WBC 16.7 H (3.8-10.6) k/uL Neutrophils # 13.0 H (1.3-7.7) k/uL Monocytes # 1.2 H (0-1.0) k/uL ESR (0-15) mm/Hr Sodium 135 L (137-145) mmol/L Carbon Dioxide 20 L (22-30) mmol/L ALT 107 H (4-49) U/L C-Reactive Protein 5.4 H (<1.0) mg/dL 06/04/23 Range/Units 14:17 WBC (3.8-10.6) k/uL Neutrophils # (1.3-7.7) k/uL Monocytes # (0-1.0) k/uL ESR 25 H (0-15) mm/Hr Sodium (137-145) mmol/L Carbon Dioxide (22-30) mmol/L ALT (4-49) U/L C-Reactive Protein (<1.0) mg/dL Microbiology - Last 24 Hours (Table) 06/04/23 14:27 Gram Stain - Preliminary Hand - Left Assessment and Plan Assessment: Acute severe left hand cellulitis with possible severe infection of the deep tissue extending to the left arm Sepsis with fever and leukocytosis Elevated inflammatory markers Nonadherence to management as he left AMA. Obesity Plan: It was explained to the patient that patient verbalized understanding given the patient severe degree of hand infection, there might be some damage. Patient already has severe loss of function because of the acute condition. Continue with broad-spectrum antibiotic, currently on IV vancomycin and Zosyn, infectious disease team consult, deferred. Orthopedic team already evaluated the patient and accepted the transfer to this facility. Patient to be evaluated for surgical intervention. Continue with aggressive fluid hydration, normal saline 130 mL/h Pain management. Check ultrasound of the upper extremity to rule out thrombotic disease Labs and medication were reviewed.. Continue same treatment. Continue with symptomatic treatment. Resume home medication. Monitor labs and vitals. DVT and GI prophylaxis. Further recommendations as per clinical course of the patient DVT prophylaxis: Subcutaneous heparin GI Prophylaxis: Pepcid PT/OT: Pending deferred now. Prognosis is guarded management plan discussed with the patient and he verbalized understanding and acceptance there is no absolute contraindication to proceed with surgical intervention , although there are some risks but benefits more than the risk.
[2023-06-05 10:00] LABS: Basophils # (A) 0.04 X 10*3/uL (0.00-0.10); Basophils % (A) 0.2 %; Eosinophils # (A) 0.33 X 10*3/uL (0.04-0.35); Eosinophils % (A) 1.9 %; HCT 43.5 % (39.6-50.0); HGB 14.7 g/dL (13.0-17.0); Lymphocytes # (A) 1.22 X 10*3/uL (0.90-5.00); Lymphocytes % (A) 7.2 %; MCH 29.8 pg (27.0-32.0); MCHC 33.8 g/dL (32.0-37.0); MCV 88.1 FL (80.0-97.0); Mean Platelet Volume 10.2 FL (9.5-12.2); Monocytes % (A) 8.9 %; NRBC Per 100 WBC 0 X 10*3/uL (0.00-0.01); Neutrophils % (A) 81.5 %; Platelet Count 266 X 10*3/uL (140-440); RBC 4.94 X 10*6/uL (4.40-5.60); RDW 12.4 % (11.5-14.5); WBC 16.94 X 10*3/uL (4.50-10.00)
[2023-06-05 10:20] LABS: BUN/Creat Ratio 9.62 Ratio (12.00-20.00); Blood Urea Nitrogen 7.7 mg/dL (9.0-27.0); Calcium 8.3 mg/dL (8.7-10.3); Carbon Dioxide 20.8 mmol/L (21.6-31.8); Chloride 104 mmol/L (96-109); Glucose 112 mg/dL (70-110); Potassium 4.3 mmol/L (3.5-5.5); Sodium 134 mmol/L (135-145)
--- NOTE | 2023-06-05 13:45 | P.PN ---
Progress Note - Text Progress Note Date: 06/05/23 Patient seen and examined at bedside today. Agree with PA's assessment and plan in consult note. He has signs of a deep palmar/thenar abscess that we discussed will require formal incision and drainage. Risks and benefits of surgery including bleeding, infection, damage to surrounding tissue, need for further surgery, residual numbness were discussed and the patient wished to go forward with surgery. He is scheduled for a left hand incision and drainage today 06/05/23. -Demian Pastor DO Orthopedic Hand/Upper Extremity
[2023-06-05] MEDS: IV FLUID CONTINUATION 1,000 ML IV ONE (16:14)
[2023-06-05] MEDS ORDERED: ONDANSETRON 4 MG/2 ML VIAL ONE (16:25)
[2023-06-05] MEDS: ONDANSETRON 4 MG/2 ML VIAL IVP ONE (16:28)
[2023-06-05] MEDS: DEXAMETHASONE SOD PHOSPHATE 4 MG/ML 1 ML VIAL IVP ONE (16:29)
[2023-06-05] MEDS ORDERED: fentaNYL (PF) 50 MCG/ML 2 ML AMP ONE (17:03)
[2023-06-05] MEDS ORDERED: LIDOCAINE 1% INJ 10MG/ML (20 ML MDV) ONE (17:03)
[2023-06-05] MEDS ORDERED: KETOROLAC 15 MG/ML 1 ML VIAL ONE (17:03)
[2023-06-05] MEDS ORDERED: HYDROmorphone (PF) 1 MG/ML ONE (17:03)
[2023-06-05] MEDS ORDERED: PROPOFOL 10 MG/ML 20 ML VIAL IV ONE (17:03)
[2023-06-05] MEDS: LACTATED RINGERS 1,000 ML IV ONE ×2 (17:40→19:00)
[2023-06-05 17:43] LABS: Amphetamine Screen,Urine Not Detected (NotDetected); Barbiturate Screen,Urine Not Detected (NotDetected); Benzodiazepines Screen,Urine Not Detected (NotDetected); Cocaine Screen,Urine Not Detected (NotDetected); Methadone Screen, Urine Not Detected (NotDetected); Opiate Screen,Urine Not Detected (NotDetected); Oxycodone Screen, Urine Not Detected (NotDetected); Phencyclidine Screen,Urine Not Detected (NotDetected); Tricyclic Antidepressant,Urine Not Detected (NotDetected); Urn Cannabinoid Scrn Not Detected (NotDetected)
--- NOTE | 2023-06-05 18:07 | P.OP ---
Date of Procedure: 06/05/23 Preoperative Diagnosis: 1.) Left hand deep palmar abscess Postoperative Diagnosis: 1.) Left hand deep palmar abscess Procedure(s) Performed: 1.) Incision and drainage of left hand palmar bursa, complicated/Multiple: Thenar and mid palmar space ([id number]) 2.) Left open carpal tunnel release Anesthesia: KASI Surgeon: Demian Pastor Elementary Instructional Coach #1: Steven Trinh Estimated Blood Loss (ml): 10 Pathology: none sent (Left palmar abscess culture) Condition: stable Disposition: PACU Description of Procedure: This is a 37 year old male who presented to the ED with a week long history of a worsening left hand abscess that presents today for surgical intervention. Risks and benefits of surgery were discussed with the patient including bleeding, damage to surrounding tissue, infection, need for further surgery as well as risks of anesthesia including pulmonary embolism and even and the patient wished to proceed with surgical intervention. The patient was seen in the pre- operative area by myself. Consent and H&P were completed and updated. The correct extremity was marked in the pre-operative area by myself and all other questions were answered. Operative Narrative: The patient was brought to the operating room by the department of anesthesia. They remained on the portable stretcher and a rolling hand table was brought to the side of the operative extremity. Pre-operative time out was performed indicating the correct patient, procedure and laterality. All in the room agreed. Pre-operative antibiotics were given prior to skin incision. The patient was then drifted off to sleep by the department of anesthesia. A nonsterile tourniquet was then applied to the operative extremity and the left upper extremity was then prepped and draped in normal sterile fashion. The operative extremity was the exsanguinated with an esmarch bandage and the tourniquet was inflated to 250mmHg. 15 blade scalpel was utilized to create an incision in the mid palm in line with the radial boarder of the 4th digit. Palmar fascia was then incised to reveal the transverse carpal ligament. This was released under direct visualization from proximal to distal with scalpel and scissors. The incision was then carried distally and radially towards thenar region of the mid palm to the area of maximal fluctuance. A large pocket of purulence was able to be expressed from the thenar space which was decompressed. Attention was then drawn to the area of induration on the dorsal aspect of the first webspace. Blunt dissection was taken through subcutaneous tissues and no purulence was identified, cultures were obtained. There was no obvious collar buttoning of the abscess between the first webspace and thenar space. 3L of sterile saline was then irrigated through all wounds. Loose closure with 3-0 prolene was performed. Tourniquet was let down and the hand had immediate perfusion. Large bulky dressing was applied. The patient was then woken by the department of anesthesia and transferred to PACU in stable condition. Steven SCOTT was present for assistance in hand manipulation, wound closure and protection of vital neurovascular structures. Demian Pastor D.O. Orthopedic Hand/Upper Extremity Surgeon
[2023-06-05] MEDS ORDERED: VANCOMYCIN TROUGH DUE 1 EACH MISC MISCELLANE ONE (19:00)
[2023-06-05] MEDS: AMPICILLIN-SULBACTAM 3 GM in SODIUM CHLORIDE 0.9% 100 ML IVPB SCH (20:33)
[2023-06-05] MEDS: VANCOMYCIN TROUGH DUE 1 EACH MISC MISCELLANE ONE (20:39)
--- NOTE | 2023-06-05 23:21 | P.CONS ---
History of Present Illness - Reason for Consult Consult date: 06/05/23 Hand infection Requesting physician: Abbe E Vern - Chief Complaint Left hand pain and swelling x few days - History of Present Illness Patient is a 37-year-old male with past medical history significant for anxiety substance abuse presenting to the hospital for evaluation of left hand pain and swelling patient symptoms started about a week ago and the patient mention he was working on a dirt bike using some tools and may have put more pressure with his pounds he felt initially a popping sensation and afterwards noticed to having increasing swelling and redness to the left hand area patient was describing the pain to be sharp almost 10 out of 10 in severity without any radiation did have some improvement with the pain medication has received did have associated swelling redness, did not have any open wound or any drainage patient did have a fever of 100.2 F he was tachycardic but not hypotensive or hypoxic did have a white count of 16.7 creatinine 0.71 urine drug screen negative liver enzymes normal patient did have a blood cultures currently p ending he was started on vancomycin and Zosyn infectious disease was consulted for further management of antibiotic therapy Review of Systems Positive point and negatives has been mentioned in the HPI, complete review of systems was performed and all other systems are negative Past Medical History Past Medical History: No Reported History Additional Past Medical History / Comment(s): L2 FRACTURE; CHRONIC BACK PAIN, 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 History of Any Multi-Drug Resistant Organisms: None Reported Additional Past Surgical History / Comment(s): bilateral knees, left shoulder Past Anesthesia/Blood Transfusion Reactions: No Reported Reaction Device Placement Date:: Substance abuse history, history of methamphetamine use, last use was 02/16 Past Psychological History: Anxiety Smoking Status: Former smoker, Vaper Past Alcohol Use History: Abuse Additional Past Alcohol Use History / Comment(s): patient states he was a heavy drinker, denies any current alcohol use. Past Drug Use History: Heroin, Methamphetamine, Prescription Drug Abuse Additional Drug Use History / Comment(s): pt states he quit smoking 10 days ago. - Past Family History Father Family Medical History: No Reported History Mother Family Medical History: No Reported History Sister(s) Family Medical History: No Reported History Daughter(s) Family Medical History: No Reported History Son(s) Family Medical History: No Reported History Medications and Allergies Home Medications Medication Instructions Recorded Confirmed Type Ibuprofen [Motrin] 800 mg PO QID PRN 06/04/23 06/04/23 History HYDROcodone/APAP 7.5-325MG [[place] 1 each PO Q6HR PRN 3 Days #12 tab 06/09/23 Rx 7.5-325] Allergies Allergy/AdvReac Type Severity Reaction Status Date / Time No Known Allergies Allergy Verified 06/04/23 14:08 Physical Exam Vitals: Vital Signs Temp Pulse Pulse Resp BP BP Pulse Ox 06/05/23 13:40 111 H 16 157/103 99 06/05/23 07:06 99.3 F 125 H 16 154/93 98 06/05/23 01:01 99.0 F 121 H 18 136/82 98 06/04/23 20:07 98.9 F 121 H 17 129/68 96 06/04/23 19:07 121 H 20 144/88 97 06/04/23 18:12 100.2 F H 128 H 22 149/104 96 06/04/23 16:20 99.8 F H 120 H 22 141/91 96 Intake and Output 06/05/23 06/05/23 06/05/23 06:59 14:59 22:59 Other: # Voids 2 GENERAL DESCRIPTION: Middle-aged male up in bed, no distress. No tachypnea or accessory muscle of respiration use. HEENT: Shows Pallor , no scleral icterus. Oral mucous membrane is dry. No pharyngeal erythema or thrush NECK: Trachea central, no thyromegaly. LUNGS: Unlabored breathing. Clear to auscultation anteriorly. No wheeze or crackle. HEART: S1, S2, regular rate and rhythm. No loud murmur ABDOMEN: Soft, no tenderness , guarding or rigidity, no organomegaly EXTREMITIES: Left hand on the plantar aspect did have a significant swelling with concern for posterior. SKIN: Multiple tattoos throughout his body NEUROLOGICAL: The patient is awake, alert, oriented x3, mood and affect normal. Results CBC & Chem 7: 06/08/23 05:28 06/08/23 05:28 Labs: Abnormal Lab Results - Last 24 Hours (Table) 06/04/23 06/04/23 06/05/23 Range/Units 14:17 14:17 07:22 WBC 16.94 H (4.50-10.00) X 10*3/uL Immature Gran # 0.05 H (0.00-0.04) X 10*3/uL Neutrophils # 13.80 H (1.80-7.70) X 10*3/uL Monocytes # 1.50 H (0.20-1.00) X 10*3/uL ESR 25 H (0-15) mm/Hr Sodium (135-145) mmol/L Carbon Dioxide (21.6-31.8) mmol/L BUN (9.0-27.0) mg/dL BUN/Creatinine Ratio (12.00-20.00) Ratio Glucose (70-110) mg/dL Calcium (8.7-10.3) mg/dL C-Reactive Protein 5.4 H (<1.0) mg/dL 06/05/23 Range/Units 07:22 WBC (4.50-10.00) X 10*3/uL Immature Gran # (0.00-0.04) X 10*3/uL Neutrophils # (1.80-7.70) X 10*3/uL Monocytes # (0.20-1.00) X 10*3/uL ESR (0-15) mm/Hr Sodium 134 L (135-145) mmol/L Carbon Dioxide 20.8 L (21.6-31.8) mmol/L BUN 7.7 L (9.0-27.0) mg/dL BUN/Creatinine Ratio 9.62 L (12.00-20.00) Ratio Glucose 112 H (70-110) mg/dL Calcium 8.3 L (8.7-10.3) mg/dL C-Reactive Protein (<1.0) mg/dL Microbiology - Last 24 Hours (Table) 06/04/23 14:27 Gram Stain - Preliminary Hand - Left Assessment and Plan (1) Abscess of left hand Status: Acute Code(s): L02.512 - CUTANEOUS ABSCESS OF LEFT HAND SNOMED Code(s): 24639357433574135 (2) Infection of left hand Status: Acute Code(s): L08.9 - LOCAL INFECTION OF THE SKIN AND SUBCUTANEOUS TISSUE, UNSP SNOMED Code(s): 579032904 (3) Sepsis Status: Acute Code(s): A41.9 - SEPSIS, UNSPECIFIED ORGANISM SNOMED Code(s): 56448181 Plan: 1patient presented to hospital with sepsis in this patient noted a fever elevated white count source is a left hand abscess and will need to cover for the gram-positive skin venancio underlying gram-negative infection less likely but not entirely excluded 2-await surgical drainage and deep culture 3-continue with the vancomycin however switch Zosyn to Unasyn to decrease risk of nephrotoxicity We will follow on clinical condition and cultures to further adjust medication if needed Thank you for this consultation we will follow the patient along with you Dictation was produced using [employer] dictation software. please excuse any grammatical, word or spelling errors.
[2023-06-06] MEDS: VANCOMYCIN 1,750 MG in SODIUM CHLORIDE 0.9% 500 ML 500 ML IVPB SCH (05:48)
[2023-06-06 08:21] LABS: African American GFR (CKD) >90 (>60 ml/min/1.73 sqM); Anion Gap 7 mmol/L; Blood Urea Nitrogen 14 mg/dL (9-20); Calcium 8.7 mg/dL (8.4-10.2); Carbon Dioxide 21 mmol/L (22-30); Chloride 111 mmol/L (98-107); Glucose 156 mg/dL (74-99); Non-African American GFR(CKD) >90 (>60 ml/min/1.73 sqM); Potassium 4.4 mmol/L (3.5-5.1); Sodium 139 mmol/L (137-145)
[2023-06-06 10:31] LABS: Basophils # (A) 0.03 X 10*3/uL (0.00-0.10); Basophils % (A) 0.2 %; Eosinophils # (A) 0.02 X 10*3/uL (0.04-0.35); Eosinophils % (A) 0.1 %; HCT 42.1 % (39.6-50.0); Lymphocytes # (A) 1.28 X 10*3/uL (0.90-5.00); Lymphocytes % (A) 9.3 %; MCH 29.8 pg (27.0-32.0); MCHC 33.3 g/dL (32.0-37.0); MCV 89.6 FL (80.0-97.0); Mean Platelet Volume 10.5 FL (9.5-12.2); Monocytes # (A) 1.09 X 10*3/uL (0.20-1.00); NRBC Per 100 WBC 0 X 10*3/uL (0.00-0.01); Neutrophils # (A) 11.23 X 10*3/uL (1.80-7.70); Platelet Count 266 X 10*3/uL (140-440); RDW 12.2 % (11.5-14.5); WBC 13.71 X 10*3/uL (4.50-10.00)
--- NOTE | 2023-06-06 10:33 | P.PN ---
Subjective Progress Note Date: 06/06/23 Principal diagnosis: status post I&D left hand deep palmar abscess, left hand cellulitis Patient was evaluated today at bedside, he is resting in his hospital bed. Patient feels significant relief of the pressure to the left hand since surgery. The postop dressing is in good position and condition. Patient denies any fevers or chills at this time. Patient is being followed by both internal medicine and infectious disease, he remains on IV antibiotics. Objective - Vital Signs Vital signs: Vital Signs Temp 97.5 F L 06/06/23 07:22 Pulse 94 06/06/23 07:30 Resp 17 06/06/23 07:30 BP 123/77 06/06/23 07:22 Pulse Ox 98 06/06/23 07:22 FiO2 Intake & Output 06/05/23 06/06/23 06/06/23 18:59 06:59 18:59 Intake Total 1600 100 Output Total 10 Balance 1590 100 Intake: IV 1600 100 Output: Estimated Blood Loss 10 Other: # Voids 2 - Exam Left upper extremity: Postop dressing is in good position and condition, no obvious drainage or saturation present. Patient is able to wiggle all the fingers with no difficulty, he notes improvement in discomfort when he does this. No erythema noted proximal to the postop dressing. No significant soft tissue swelling present in the forearm. Patient's skin is warm to touch, sensation to light touch is intact throughout the extremity both proximal distal to the splint. - Labs CBC & Chem 7: 06/05/23 07:22 06/06/23 07:37 Labs: Abnormal Lab Results - Last 24 Hours (Table) 06/06/23 Range/Units 07:37 Chloride 111 H (98-107) mmol/L Carbon Dioxide 21 L (22-30) mmol/L Creatinine 0.65 L (0.66-1.25) mg/dL Glucose 156 H (74-99) mg/dL Microbiology - Last 24 Hours (Table) 06/04/23 13:30 Blood Culture - Preliminary Blood 06/04/23 13:45 Blood Culture - Preliminary Blood Assessment and Plan Assessment: Left hand cellulitis Post op day #1 s/p I&D left hand deep palmar abscess Other medical comorbidities Plan: Leave postop dressing in current position, plan for removal and changes on 06/07/2023 Recommend elevating the extremity often to help with soft tissue swelling Await culture and sensitivity results, continue IV antibiotics GI and DVT prophylaxis per primary medical service Other medical specialty recommendations appreciated will continue to follow during hospital stay Time with Patient: Less than 30
--- NOTE | 2023-06-06 13:14 | P.PN ---
Subjective Progress Note Date: 06/06/23 Patient is admiteded with left hand swelling , on reviewing the records it looks like patient was at [facility] on 06/02/2023 for redness pain and swelling of the left hand of 2 days duration at that time. Also record indicates that patient left AMA that day. Patient seen and examined in the emergency room. Patient presents because of severe left hand swelling redness and difficulty moving sever finger and left wrist associated with milder swelling of the left forearm with mild erythema.patient states that his injury started 6-day ago prior to this hospitalization. 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 He cannot remember more details. He denies fever or chills. No chest pain dyspnea. He states he had diarrhea and vomiting 1 time each yesterday. He denies dysuria or urgency. No abdominal pain. No headache dizziness weakness or numbness. He denies smoking alcohol or illicit drugs 06/05/2023 Patient still complaining from left hand swelling redness and tenderness with limitation of movement Today showing some improvement compared to yesterday after he was started on IV vancomycin and Zosyn, slightly swollen there is a fluctuant area on the medial half of his palm. His left forearm is also less swollen Ultrasound of the upper extremity is negative for deep venous thrombosis, I reviewed the test by myself Patient remains on normal saline at 30 mL/h as well as broad-spectrum antibiotic Infectious disease was consulted Repeat labs this morning are still pending Patient also evaluated by orthopedic surgery team and plan for incision and debridement possibly today From medical perspective there is no absolute contraindication to proceed with surgical intervention , although there are some risks but benefits more than the risk. 06/05. Patient seen and examined. States left hand pain has improved. Denies any fever or chills. Denies nausea or vomiting REVIEW OF SYSTEMS: CONSTITUTIONAL: No fever, no malaise,. CARDIOVASCULAR: No chest pain, no palpitations, no syncope. PULMONARY: No shortness of breath, no cough, GASTROINTESTINAL: No diarrhea, no nausea, no vomiting, no abdominal pain. NEUROLOGICAL: No headaches, no weakness, PHYSICAL EXAMINATION: GENERAL: The patient is alert and oriented x3, not in any acute distress. Well developed, well nourished. HEENT: Pupils are round and equally reacting to light. EOMI. No scleral icterus. No conjunctival pallor. Normocephalic, atraumatic. No pharyngeal erythema. No thyromegaly. CARDIOVASCULAR: S1 and S2 present. No murmurs, rubs, or gallops. PULMONARY: Chest is clear to auscultation, no wheezing or crackles. ABDOMEN: Soft, nontender, nondistended, normoactive bowel sounds. No palpable organomegaly. MUSCULOSKELETAL: Left hand dressing seen EXTREMITIES: No cyanosis, clubbing, or pedal edema. NEUROLOGICAL: Gross neurological examination did not reveal any focal deficits. SKIN: No rashes. Assessment and plan Acute severe left hand cellulitis with possible severe infection of the deep tissue extending to the left arm Sepsis with fever and leukocytosis Elevated inflammatory markers Nonadherence to management as he left AMA. Obesity Monitor vital signs Monitor CBC Monitor CMP Continue telemetry monitoring Encourage use of incentive spirometer Follow-up on blood cultures Follow-up on wound culture S/p Incision and drainage of left hand palmar bursa, complicated/Multiple: Thenar and mid palmar space ([id number]), Left open carpal tunnel release Continue IV Unasyn and vancomycin continue pain management ID following Hand surgery following Labs and medication were reviewed.. Continue same treatment. Continue with symptomatic treatment. Resume home medication. Monitor labs and vitals. DVT and GI prophylaxis. Further recommendations as per clinical course of the patient Dictation was produced using [employer] dictation software. please excuse any grammatical, word or spelling errors. Objective - Vital Signs Vital signs: Vital Signs Temp 97.5 F L 06/06/23 07:22 Pulse 94 06/06/23 07:30 Resp 17 06/06/23 07:30 BP 123/77 06/06/23 07:22 Pulse Ox 98 06/06/23 07:22 FiO2 Intake & Output 06/05/23 06/06/23 06/06/23 18:59 06:59 18:59 Intake Total 1600 100 Output Total 10 Balance 1590 100 Intake: IV 1600 100 Output: Estimated Blood Loss 10 Other: # Voids 2 - Labs CBC & Chem 7: 06/06/23 07:37 06/06/23 07:37 Labs: Abnormal Lab Results - Last 24 Hours (Table) 06/05/23 06/05/23 06/06/23 Range/Units 07:22 07:22 07:37 WBC 16.94 H (4.50-10.00) X 10*3/uL Immature Gran # 0.05 H (0.00-0.04) X 10*3/uL Neutrophils # 13.80 H (1.80-7.70) X 10*3/uL Monocytes # 1.50 H (0.20-1.00) X 10*3/uL Sodium 134 L (135-145) mmol/L Chloride 111 H (98-107) mmol/L Carbon Dioxide 20.8 L 21 L (21.6-31.8) mmol/L BUN 7.7 L (9.0-27.0) mg/dL Creatinine 0.65 L (0.66-1.25) mg/dL BUN/Creatinine Ratio 9.62 L (12.00-20.00) Ratio Glucose 112 H 156 H (70-110) mg/dL Calcium 8.3 L (8.7-10.3) mg/dL Microbiology - Last 24 Hours (Table) 06/04/23 13:30 Blood Culture - Preliminary Blood 06/04/23 13:45 Blood Culture - Preliminary Blood 06/04/23 14:27 Gram Stain - Preliminary Hand - Left
--- NOTE | 2023-06-06 15:27 | P.PN ---
Subjective Progress Note Date: 06/06/23 Principal diagnosis: Reason for follow-up is left hand abscess Patient is a 37-year-old male with past medical history significant for anxiety substance abuse presenting to the hospital for evaluation of left hand pain and swelling, patient be diagnosed with an abscess and the patient is status post surgical drainage of the left hand noland bursa and also open compar tment release on 06/05/2023. On today's visit that is 06/06/2023,the patient did have resolution of his fever and is afebrile this morning, patient is on room air not requiring supplemental oxygen and denies any shortness of breath no chest pain or cough.Patient denies having any nausea or vomiting, no abdominal pain and no diarrhea pain to the left and slightly decreased in intensity. Patient white count down to 13.71, creatinine 0.65 cultures currently pending Objective - Vital Signs Vital signs: Vital Signs Temp 97.8 F 06/06/23 14:45 Pulse 125 H 06/06/23 14:45 Resp 18 06/06/23 14:45 BP 136/74 06/06/23 14:45 Pulse Ox 98 06/06/23 14:45 FiO2 Intake & Output 06/05/23 06/06/23 06/06/23 18:59 06:59 18:59 Intake Total 1600 100 Output Total 10 Balance 1590 100 Intake: IV 1600 100 Output: Estimated Blood Loss 10 Other: # Voids 2 - Exam GENERAL DESCRIPTION: Middle-age male lying in bed in no distress RESPIRATORY SYSTEM: Unlabored breathing , decreased breath sounds at bases HEART: S1 S2 regular rate and rhythm , ABDOMEN: Soft , no tenderness EXTREMITIES: Left and is currently dressed - Labs CBC & Chem 7: 06/06/23 07:37 06/06/23 07:37 Labs: Abnormal Lab Results - Last 24 Hours (Table) 06/06/23 06/06/23 Range/Units 07:37 07:37 WBC 13.71 H (4.50-10.00) X 10*3/uL Immature Gran # 0.06 H (0.00-0.04) X 10*3/uL Neutrophils # 11.23 H (1.80-7.70) X 10*3/uL Monocytes # 1.09 H (0.20-1.00) X 10*3/uL Eosinophils # 0.02 L (0.04-0.35) X 10*3/uL Chloride 111 H (98-107) mmol/L Carbon Dioxide 21 L (22-30) mmol/L Creatinine 0.65 L (0.66-1.25) mg/dL Glucose 156 H (74-99) mg/dL Microbiology - Last 24 Hours (Table) 06/05/23 17:31 Gram Stain - Preliminary Hand - Left 06/04/23 13:30 Blood Culture - Preliminary Blood 06/04/23 13:45 Blood Culture - Preliminary Blood Assessment and Plan (1) Abscess of left hand Current Visit: Yes Status: Acute Code(s): L02.512 - CUTANEOUS ABSCESS OF LEFT HAND SNOMED Code(s): 82513880344626726 (2) Infection of left hand Current Visit: Yes Status: Acute Code(s): L08.9 - LOCAL INFECTION OF THE SKIN AND SUBCUTANEOUS TISSUE, UNSP SNOMED Code(s): 127797306 (3) Sepsis Current Visit: Yes Status: Acute Code(s): A41.9 - SEPSIS, UNSPECIFIED ORGANISM SNOMED Code(s): 78064400 Plan: 1patient presented to hospital with sepsis in this patient noted a fever elevated white count source is a left hand abscess and will need to cover for the gram-positive skin venancio underlying gram-negative infection less likely but not entirely excluded 2-patient is status post surgical drainage and deep culture which are currently pending 3-patient to continue with the vancomycin and Unasyn while waiting for the culture to finalize Dictation was produced using [employer] dictation software. please excuse any g rammatical, word or spelling errors. Time with Patient: Less than 30
[2023-06-06] MEDS: VANCOMYCIN TROUGH DUE 1 EACH MISC MISCELLANE ONE (21:00)
[2023-06-06] MEDS: HYDROmorphone 0.5 MG/0.5 ML SYRINGE IVP PRN (21:53)
[2023-06-07 06:24] LABS: ALT 44 U/L (4-49); AST 21 U/L (17-59); African American GFR (CKD) >90 (>60 ml/min/1.73 sqM); Albumin 2.8 g/dL (3.5-5.0); Alkaline Phosphatase 65 U/L (38-126); Anion Gap 5 mmol/L; Blood Urea Nitrogen 14 mg/dL (9-20); Calcium 8.3 mg/dL (8.4-10.2); Carbon Dioxide 22 mmol/L (22-30); Chloride 114 mmol/L (98-107); Globulin 2.8 g/dL; Glucose 107 mg/dL (74-99); Non-African American GFR(CKD) >90 (>60 ml/min/1.73 sqM); Potassium 3.8 mmol/L (3.5-5.1); Sodium 141 mmol/L (137-145); Total Bilirubin 0.1 mg/dL (0.2-1.3); Total Protein 5.6 g/dL (6.3-8.2)
--- NOTE | 2023-06-07 07:41 | P.PN ---
Subjective Progress Note Date: 06/07/23 Principal diagnosis: status post I&D left hand deep palmar abscess, left hand cellulitis Patient was evaluated today at bedside, he is resting in his hospital bed. patient remains stable at this time, he is a been able to move the fingers a lot better since the surgery. Denies any fevers or chills. Patient is being followed by both internal medicine and infectious disease, he remains on IV antibiotics. Objective - Vital Signs Vital signs: Vital Signs Temp 98.0 F 06/07/23 02:40 Pulse 96 06/07/23 02:40 Resp 20 06/07/23 02:40 BP 120/72 06/07/23 02:40 Pulse Ox 99 06/07/23 02:40 FiO2 Intake & Output 06/06/23 06/07/23 06/07/23 18:59 06:59 18:59 Intake Total 600 Balance 600 Intake: Oral 600 Other: # Voids 2 2 - Exam Left upper extremity: Postop dressing was removed today at bedside, dorsal incision between the first and second webspace is well-healing, the redness on that side is much improved. followed areas present palmar aspect of the hand/wrist sutures are all in good position, wound edges remain intact. There is some mild purulence present in the thenar region. There is some fluctuance also appreciated in that area. No increase in erythema or fluctuance appreciated near the carpal tunnel patient is able to wiggle all the fingers with no difficulty, passive extension and flexion of the digits is much improved along with pain symptoms sensation to light touch throughout the extremity on the dorsal and palmar aspect are intact radial and ulnar pulse are 2+ - Labs CBC & Chem 7: 06/06/23 07:37 06/07/23 05:32 Labs: Abnormal Lab Results - Last 24 Hours (Table) 06/06/23 06/06/23 06/07/23 Range/Units 07:37 07:37 05:32 WBC 13.71 H (4.50-10.00) X 10*3/uL Immature Gran # 0.06 H (0.00-0.04) X 10*3/uL Neutrophils # 11.23 H (1.80-7.70) X 10*3/uL Monocytes # 1.09 H (0.20-1.00) X 10*3/uL Eosinophils # 0.02 L (0.04-0.35) X 10*3/uL Chloride 111 H 114 H (98-107) mmol/L Carbon Dioxide 21 L (22-30) mmol/L Creatinine 0.65 L (0.66-1.25) mg/dL Glucose 156 H 107 H (74-99) mg/dL Calcium 8.3 L (8.4-10.2) mg/dL Total Bilirubin 0.1 L (0.2-1.3) mg/dL Total Protein 5.6 L (6.3-8.2) g/dL Albumin 2.8 L (3.5-5.0) g/dL Microbiology - Last 24 Hours (Table) 06/04/23 13:30 Blood Culture - Preliminary Blood 06/04/23 13:45 Blood Culture - Preliminary Blood 06/04/23 14:27 Gram Stain - Final Hand - Left Wound Culture - Final 06/05/23 17:31 Gram Stain - Preliminary Hand - Left Assessment and Plan Assessment: Left hand cellulitis Post op day #2 s/p I&D left hand deep palmar abscess Other medical comorbidities Plan: New dressing was applied at bedside today Recommend elevating the extremity often to help with soft tissue swelling Await culture and sensitivity results, continue IV antibiotics GI and DVT prophylaxis per primary medical service Other medical specialty recommendations appreciated We will discuss physical exam findings with my attending Dr. Pastor, discussed with patient due to his current physical exam findings we may require further incision with irrigation and debridement of the left hand. Time with Patient: Less than 30
[2023-06-07] MEDS: AMPICILLIN-SULBACTAM 3 GM in SODIUM CHLORIDE 0.9% 100 ML IVPB SCH (08:45)
[2023-06-07 09:44] LABS: Basophils # (A) 0.06 X 10*3/uL (0.00-0.10); Basophils % (A) 0.8 %; Eosinophils # (A) 0.43 X 10*3/uL (0.04-0.35); Eosinophils % (A) 5.8 %; HCT 42.1 % (39.6-50.0); HGB 13.6 g/dL (13.0-17.0); Lymphocytes % (A) 35.1 %; MCHC 32.3 g/dL (32.0-37.0); MCV 89.8 FL (80.0-97.0); Mean Platelet Volume 10.4 FL (9.5-12.2); Monocytes # (A) 0.74 X 10*3/uL (0.20-1.00); NRBC Per 100 WBC 0 X 10*3/uL (0.00-0.01); Neutrophils # (A) 3.54 X 10*3/uL (1.80-7.70); Neutrophils % (A) 47.9 %; Platelet Count 288 X 10*3/uL (140-440); RBC 4.69 X 10*6/uL (4.40-5.60); RDW 12.6 % (11.5-14.5)
--- NOTE | 2023-06-07 12:52 | P.PN ---
Subjective Progress Note Date: 06/07/23 Patient is admiteded with left hand swelling , on reviewing the records it looks like patient was at [facility] on 06/02/2023 for redness pain and swelling of the left hand of 2 days duration at that time. Also record indicates that patient left AMA that day. Patient seen and examined in the emergency room. Patient presents because of severe left hand swelling redness and difficulty moving sever finger and left wrist associated with milder swelling of the left forearm with mild erythema.patient states that his injury started 6-day ago prior to this hospitalization. 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 He cannot remember more details. He denies fever or chills. No chest pain dyspnea. He states he had diarrhea and vomiting 1 time each yesterday. He denies dysuria or urgency. No abdominal pain. No headache dizziness weakness or numbness. He denies smoking alcohol or illicit drugs 06/05/2023 Patient still complaining from left hand swelling redness and tenderness with limitation of movement Today showing some improvement compared to yesterday after he was started on IV vancomycin and Zosyn, slightly swollen there is a fluctuant area on the medial half of his palm. His left forearm is also less swollen Ultrasound of the upper extremity is negative for deep venous thrombosis, I reviewed the test by myself Patient remains on normal saline at 30 mL/h as well as broad-spectrum antibiotic Infectious disease was consulted Repeat labs this morning are still pending Patient also evaluated by orthopedic surgery team and plan for incision and debridement possibly today From medical perspective there is no absolute contraindication to proceed with surgical intervention , although there are some risks but benefits more than the risk. 5. Patient seen and examined. States left hand pain has improved. Denies any fever or chills. Denies nausea or vomiting /6. Patient seen and examined. Blood work done this morning showed sodium 141, potassium 3.8, BUN 14, creatinine 0.89, calcium 8.3,. States swelling of left hand has improved. REVIEW OF SYSTEMS: CONSTITUTIONAL: No fever, no malaise,. CARDIOVASCULAR: No chest pain, no palpitations, no syncope. PULMONARY: No shortness of breath, no cough, GASTROINTESTINAL: No diarrhea, no nausea, no vomiting, no abdominal pain. NEUROLOGICAL: No headaches, no weakness, PHYSICAL EXAMINATION: GENERAL: The patient is alert and oriented x3, not in any acute distress. Well developed, well nourished. HEENT: Pupils are round and equally reacting to light. EOMI. No scleral icterus. No conjunctival pallor. Normocephalic, atraumatic. No pharyngeal erythema. No thyromegaly. CARDIOVASCULAR: S1 and S2 present. No murmurs, rubs, or gallops. PULMONARY: Chest is clear to auscultation, no wheezing or crackles. ABDOMEN: Soft, nontender, nondistended, normoactive bowel sounds. No palpable organomegaly. MUSCULOSKELETAL: Left hand dressing seen EXTREMITIES: No cyanosis, clubbing, or pedal edema. NEUROLOGICAL: Gross neurological examination did not reveal any focal deficits. SKIN: No rashes. Assessment and plan Acute severe left hand cellulitis with possible severe infection of the deep tissue extending to the left arm Sepsis with fever and leukocytosis Elevated inflammatory markers Nonadherence to management as he left AMA. Obesity Monitor vital signs Monitor CBC Monitor CMP Continue telemetry monitoring Encourage use of incentive spirometer Follow-up on blood cultures Follow-up on wound culture S/p Incision and drainage of left hand palmar bursa, complicated/Multiple: Thenar and mid palmar space ([id number]), Left open carpal tunnel release Continue IV Unasyn and vancomycin continue pain management ID following Hand surgery following Labs and medication were reviewed.. Continue same treatment. Continue with symptomatic treatment. Resume home medication. Monitor labs and vitals. DVT and GI prophylaxis. Further recommendations as per clinical course of the patient Dictation was produced using [employer] dictation software. please excuse any grammatical, word or spelling errors. Objective - Vital Signs Vital signs: Vital Signs Temp 98.7 F 06/07/23 07:59 Pulse 93 06/07/23 07:59 Resp 18 06/07/23 07:59 BP 126/78 06/07/23 07:59 Pulse Ox 98 06/07/23 07:59 FiO2 Intake & Output 06/06/23 06/07/23 06/07/23 18:59 06:59 18:59 Intake Total 600 Balance 600 Intake: Oral 600 Other: # Voids 2 2 - Labs CBC & Chem 7: 06/07/23 05:32 06/07/23 05:32 Labs: Abnormal Lab Results - Last 24 Hours (Table) 06/06/23 06/07/23 Range/Units 07:37 05:32 WBC 13.71 H (4.50-10.00) X 10*3/uL Immature Gran # 0.06 H (0.00-0.04) X 10*3/uL Neutrophils # 11.23 H (1.80-7.70) X 10*3/uL Monocytes # 1.09 H (0.20-1.00) X 10*3/uL Eosinophils # 0.02 L (0.04-0.35) X 10*3/uL Chloride 114 H (98-107) mmol/L Glucose 107 H (74-99) mg/dL Calcium 8.3 L (8.4-10.2) mg/dL Total Bilirubin 0.1 L (0.2-1.3) mg/dL Total Protein 5.6 L (6.3-8.2) g/dL Albumin 2.8 L (3.5-5.0) g/dL Microbiology - Last 24 Hours (Table) 06/04/23 13:30 Blood Culture - Preliminary Blood 06/04/23 13:45 Blood Culture - Preliminary Blood 06/04/23 14:27 Gram Stain - Final Hand - Left Wound Culture - Final 06/05/23 17:31 Gram Stain - Preliminary Hand - Left
--- NOTE | 2023-06-07 15:01 | P.PN ---
Subjective Progress Note Date: 06/07/23 Principal diagnosis: Reason for follow-up is left hand abscess Patient is a 37-year-old male with past medical history significant for anxiety substance abuse presenting to the hospital for evaluation of left hand pain and swelling, patient be diagnosed with an abscess and the patient is status post surgical drainage of the left hand noland bursa and also open compar tment release on 06/05/2023. On today's visit that is 06/07/2023, the patient continues to be afebrile, the patient is on room air and breathing comfortably, the Pt denies having any chest pain or cough, the patient denies having any abdominal pain no vomiting or any diarrhea pain to the left hand has decreased in intensity. Patient white count is down to 7.40, creatinine 0.8, left hand Culture with presumptive MRSA Objective - Vital Signs Vital signs: Vital Signs Temp 97.9 F 06/07/23 14:00 Pulse 79 06/07/23 14:00 Resp 18 06/07/23 14:00 BP 124/73 06/07/23 14:00 Pulse Ox 96 06/07/23 14:00 FiO2 Intake & Output 06/06/23 06/07/23 06/07/23 18:59 06:59 18:59 Intake Total 600 Balance 600 Intake: Oral 600 Other: # Voids 2 2 - Exam GENERAL DESCRIPTION: Middle-age male lying in bed in no distress RESPIRATORY SYSTEM: Unlabored breathing , decreased breath sounds at bases HEART: S1 S2 regular rate and rhythm , ABDOMEN: Soft , no tenderness EXTREMITIES: Left and is currently dressed - Labs CBC & Chem 7: 06/07/23 05:32 06/07/23 05:32 Labs: Abnormal Lab Results - Last 24 Hours (Table) 06/07/23 06/07/23 Range/Units 05:32 05:32 Eosinophils # 0.43 H (0.04-0.35) X 10*3/uL Chloride 114 H (98-107) mmol/L Glucose 107 H (74-99) mg/dL Calcium 8.3 L (8.4-10.2) mg/dL Total Bilirubin 0.1 L (0.2-1.3) mg/dL Total Protein 5.6 L (6.3-8.2) g/dL Albumin 2.8 L (3.5-5.0) g/dL Microbiology - Last 24 Hours (Table) 06/05/23 17:31 Gram Stain - Preliminary Hand - Left Wound Culture - Preliminary Presumptive MRSA 06/04/23 13:30 Blood Culture - Preliminary Blood 06/04/23 13:45 Blood Culture - Preliminary Blood 06/04/23 14:27 Gram Stain - Final Hand - Left Wound Culture - Final Assessment and Plan (1) Abscess of left hand Current Visit: Yes Status: Acute Code(s): L02.512 - CUTANEOUS ABSCESS OF LEFT HAND SNOMED Code(s): 02612648260665548 (2) Infection of left hand Current Visit: Yes Status: Acute Code(s): L08.9 - LOCAL INFECTION OF THE SKIN AND SUBCUTANEOUS TISSUE, UNSP SNOMED Code(s): 253539780 (3) Sepsis Current Visit: Yes Status: Acute Code(s): A41.9 - SEPSIS, UNSPECIFIED ORGANISM SNOMED Code(s): 63565181 Plan: 1patient presented to hospital with sepsis in this patient noted a fever elevated white count source is a left hand abscess and will need to cover for the gram-positive skin venancio underlying gram-negative infection less likely but not entirely excluded 2-patient is status post surgical drainage and deep culture which are currently growing presumptive MRSA 3-patient to continue with the vancomycin and will discontinue Unasyn Dictation was produced using [employer] dictation software. please excuse any grammatical, word or spelling errors. Time with Patient: Less than 30
[2023-06-08] MEDS: HYDROcodone/APAP 7.5-325MG 1 EACH TAB PO PRN (04:30)
[2023-06-08 06:23] LABS: ALT 50 U/L (4-49); AST 27 U/L (17-59); African American GFR (CKD) >90 (>60 ml/min/1.73 sqM); Albumin/Globulin Ratio 1.1; Alkaline Phosphatase 61 U/L (38-126); Anion Gap 8 mmol/L; Blood Urea Nitrogen 17 mg/dL (9-20); Calcium 8.8 mg/dL (8.4-10.2); Carbon Dioxide 22 mmol/L (22-30); Chloride 109 mmol/L (98-107); Globulin 2.8 g/dL; Glucose 92 mg/dL (74-99); Non-African American GFR(CKD) >90 (>60 ml/min/1.73 sqM); Potassium 4.2 mmol/L (3.5-5.1); Sodium 139 mmol/L (137-145); Total Bilirubin 0.2 mg/dL (0.2-1.3); Total Protein 5.8 g/dL (6.3-8.2)
[2023-06-08 09:51] LABS: Basophils # (A) 0.06 X 10*3/uL (0.00-0.10); Basophils % (A) 0.9 %; Eosinophils % (A) 7.1 %; HCT 42.3 % (39.6-50.0); HGB 13.8 g/dL (13.0-17.0); Lymphocytes # (A) 2.46 X 10*3/uL (0.90-5.00); Lymphocytes % (A) 35.1 %; MCH 29.4 pg (27.0-32.0); MCHC 32.6 g/dL (32.0-37.0); MCV 90.2 FL (80.0-97.0); Mean Platelet Volume 10.6 FL (9.5-12.2); Monocytes # (A) 0.64 X 10*3/uL (0.20-1.00); Monocytes % (A) 9.1 %; NRBC Per 100 WBC 0 X 10*3/uL (0.00-0.01); Neutrophils # (A) 3.28 X 10*3/uL (1.80-7.70); Neutrophils % (A) 46.8 %; Platelet Count 322 X 10*3/uL (140-440); RBC 4.69 X 10*6/uL (4.40-5.60); RDW 12.5 % (11.5-14.5); WBC 7.01 X 10*3/uL (4.50-10.00)
--- NOTE | 2023-06-08 12:30 | P.PN ---
Subjective Progress Note Date: 06/08/23 Patient is admiteded with left hand swelling , on reviewing the records it looks like patient was at [facility] on 06/02/2023 for redness pain and swelling of the left hand of 2 days duration at that time. Also record indicates that patient left AMA that day. Patient seen and examined in the emergency room. Patient presents because of severe left hand swelling redness and difficulty moving sever finger and left wrist associated with milder swelling of the left forearm with mild erythema.patient states that his injury started 6-day ago prior to this hospitalization. 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 He cannot remember more details. He denies fever or chills. No chest pain dyspnea. He states he had diarrhea and vomiting 1 time each yesterday. He denies dysuria or urgency. No abdominal pain. No headache dizziness weakness or numbness. He denies smoking alcohol or illicit drugs 06/05/2023 Patient still complaining from left hand swelling redness and tenderness with limitation of movement Today showing some improvement compared to yesterday after he was started on IV vancomycin and Zosyn, slightly swollen there is a fluctuant area on the medial half of his palm. His left forearm is also less swollen Ultrasound of the upper extremity is negative for deep venous thrombosis, I reviewed the test by myself Patient remains on normal saline at 30 mL/h as well as broad-spectrum antibiotic Infectious disease was consulted Repeat labs this morning are still pending Patient also evaluated by orthopedic surgery team and plan for incision and debridement possibly today From medical perspective there is no absolute contraindication to proceed with surgical intervention , although there are some risks but benefits more than the risk. 5. Patient seen and examined. States left hand pain has improved. Denies any fever or chills. Denies nausea or vomiting 6. Patient seen and examined. Blood work done this morning showed sodium 141, potassium 3.8, BUN 14, creatinine 0.89, calcium 8.3,. States swelling of left hand has improved. 7. Patient seen and examined. Blood work done this morning showed sodium 139, potassium 4.2, BUN 17, creatinine 0.73. Currently on IV vancomycin REVIEW OF SYSTEMS: CONSTITUTIONAL: No fever, no malaise,. CARDIOVASCULAR: No chest pain, no palpitations, no syncope. PULMONARY: No shortness of breath, no cough, GASTROINTESTINAL: No diarrhea, no nausea, no vomiting, no abdominal pain. NEUROLOGICAL: No headaches, no weakness, PHYSICAL EXAMINATION: GENERAL: The patient is alert and oriented x3, not in any acute distress. Well developed, well nourished. HEENT: Pupils are round and equally reacting to light. EOMI. No scleral icterus. No conjunctival pallor. Normocephalic, atraumatic. No pharyngeal erythema. No thyromegaly. CARDIOVASCULAR: S1 and S2 present. No murmurs, rubs, or gallops. PULMONARY: Chest is clear to auscultation, no wheezing or crackles. ABDOMEN: Soft, nontender, nondistended, normoactive bowel sounds. No palpable organomegaly. MUSCULOSKELETAL: Left hand dressing seen EXTREMITIES: No cyanosis, clubbing, or pedal edema. NEUROLOGICAL: Gross neurological examination did not reveal any focal deficits. SKIN: No rashes. Assessment and plan Acute severe left hand cellulitis with possible severe infection of the deep tissue extending to the left arm Sepsis with fever and leukocytosis Elevated inflammatory markers Nonadherence to management as he left AMA. Obesity Monitor vital signs Monitor CBC Monitor CMP Continue telemetry monitoring Encourage use of incentive spirometer Follow-up on blood cultures Follow-up on wound culture S/p Incision and drainage of left hand palmar bursa, complicated/Multiple: Thenar and mid palmar space ([id number]), Left open carpal tunnel release Continue IV vancomycin continue pain management ID following Hand surgery following Labs and medication were reviewed.. Continue same treatment. Continue with symptomatic treatment. Resume home medication. Monitor labs and vitals. DVT and GI prophylaxis. Further recommendations as per clinical course of the patient Dictation was produced using [employer] dictation software. please excuse any grammatical, word or spelling errors. Objective - Vital Signs Vital signs: Vital Signs Temp 97.8 F 06/08/23 07:43 Pulse 86 06/08/23 07:43 Resp 17 06/08/23 07:43 BP 148/101 06/08/23 07:43 Pulse Ox 98 06/08/23 07:43 FiO2 Intake & Output 06/07/23 06/08/23 06/08/23 18:59 06:59 18:59 Other: # Voids 2 5 - Labs CBC & Chem 7: 06/07/23 05:32 06/08/23 05:28 Labs: Abnormal Lab Results - Last 24 Hours (Table) 06/07/23 06/08/23 Range/Units 05:32 05:28 Eosinophils # 0.43 H (0.04-0.35) X 10*3/uL Chloride 109 H (98-107) mmol/L ALT 50 H (4-49) U/L Total Protein 5.8 L (6.3-8.2) g/dL Albumin 3.0 L (3.5-5.0) g/dL Microbiology - Last 24 Hours (Table) 06/05/23 17:31 Anaerobic Culture - Preliminary Hand - Left 06/04/23 13:30 Blood Culture - Preliminary Blood 06/04/23 13:45 Blood Culture - Preliminary Blood 06/05/23 17:31 Gram Stain - Preliminary Hand - Left Wound Culture - Preliminary Presumptive MRSA
--- NOTE | 2023-06-08 14:17 | P.PN ---
Subjective Progress Note Date: 06/08/23 Principal diagnosis: status post I&D left hand deep palmar abscess, left hand cellulitis Patient was evaluated today at bedside, he is resting in his hospital bed. Patient remains stable at this time, he is a been able to move the fingers a lot better since the surgery. Denies any fevers or chills. Patient is being followed by both internal medicine and infectious disease, he remains on IV antibiotics. He was only able to tolerate 1 warm water soak yesterday. Objective - Vital Signs Vital signs: Vital Signs Temp 97.8 F 06/08/23 07:43 Pulse 86 06/08/23 07:43 Resp 17 06/08/23 07:43 BP 148/101 06/08/23 07:43 Pulse Ox 98 06/08/23 07:43 FiO2 Intake & Output 06/07/23 06/08/23 06/08/23 18:59 06:59 18:59 Other: # Voids 2 5 - Exam Left upper extremity: Postop dressing was removed today at bedside, dorsal incision between the first and second webspace is well-healing, the redness on that side is much improved. Fowl odor slightly improved palmar aspect of the hand/wrist sutures are all in good position, wound edges remain intact. purulence remains thenar region. There is some fluctuance also appreciated in that area, slightly improved. No increase in erythema or fluctuance appreciated near the carpal tunnel patient is able to wiggle all the fingers with no difficulty, passive extension and flexion of the digits is much improved along with pain symptoms sensation to light touch throughout the extremity on the dorsal and palmar aspect are intact radial and ulnar pulse are 2+ - Labs CBC & Chem 7: 06/08/23 05:28 06/08/23 05:28 Labs: Abnormal Lab Results - Last 24 Hours (Table) 06/08/23 06/08/23 Range/Units 05:28 05:28 Immature Gran # 0.07 H (0.00-0.04) X 10*3/uL Eosinophils # 0.50 H (0.04-0.35) X 10*3/uL Chloride 109 H (98-107) mmol/L ALT 50 H (4-49) U/L Total Protein 5.8 L (6.3-8.2) g/dL Albumin 3.0 L (3.5-5.0) g/dL Microbiology - Last 24 Hours (Table) 06/05/23 17:31 Gram Stain - Final Hand - Left Wound Culture - Final Methicillin resist S. aureus 06/05/23 17:31 Anaerobic Culture - Preliminary Hand - Left 06/04/23 13:30 Blood Culture - Preliminary Blood 06/04/23 13:45 Blood Culture - Preliminary Blood Assessment and Plan Assessment: Left hand cellulitis Post op day #3 s/p I&D left hand deep palmar abscess Other medical comorbidities Plan: Had a long discussion today with patient regarding the importance of warm Hibiclens soaks 3 times a day, we were able to start this today at bedside. Bandaging instructions were discussed with nursing and patient at bedside Recommend elevating the extremity often to help with soft tissue swelling Final culture showing MRSA, infectious disease recommendations appreciated GI and DVT prophylaxis per primary medical service Other medical specialty recommendations appreciated will evaluate on 06/09/[address] Pastor, further recommendations to follow Time with Patient: Less than 30
--- NOTE | 2023-06-08 15:02 | P.PN ---
Subjective Progress Note Date: 06/08/23 Principal diagnosis: Reason for follow-up is left hand abscess Patient is a 37-year-old male with past medical history significant for anxiety substance abuse presenting to the hospital for evaluation of left hand pain and swelling, patient be diagnosed with an abscess and the patient is status post surgical drainage of the left hand noland bursa and also open compar tment release on 06/05/2023. On today's visit that is 06/08/2023, Patient is afebrile patient is currently on room air and denies having any shortness of breath, the patient denies any chest pain or cough, the patient denies any nausea vomiting did not have any abdominal pain and no diarrhea, pain to the left and currently controlled. Patient did have white count of 7.01, creatinine 0.73 culture with MRSA Objective - Vital Signs Vital signs: Vital Signs Temp 97.7 F 06/08/23 14:00 Pulse 102 H 06/08/23 14:00 Resp 18 06/08/23 14:00 BP 163/97 06/08/23 14:00 Pulse Ox 97 06/08/23 14:00 FiO2 Intake & Output 06/07/23 06/08/23 06/08/23 18:59 06:59 18:59 Other: # Voids 2 5 - Exam GENERAL DESCRIPTION: Middle-age male lying in bed in no distress RESPIRATORY SYSTEM: Unlabored breathing , decreased breath sounds at bases HEART: S1 S2 regular rate and rhythm , ABDOMEN: Soft , no tenderness EXTREMITIES: Left hand swelling redness slightly decreased did have wound on the palmar aspect from surgical drainage - Labs CBC & Chem 7: 06/08/23 05:28 06/08/23 05:28 Labs: Abnormal Lab Results - Last 24 Hours (Table) 06/08/23 06/08/23 Range/Units 05:28 05:28 Immature Gran # 0.07 H (0.00-0.04) X 10*3/uL Eosinophils # 0.50 H (0.04-0.35) X 10*3/uL Chloride 109 H (98-107) mmol/L ALT 50 H (4-49) U/L Total Protein 5.8 L (6.3-8.2) g/dL Albumin 3.0 L (3.5-5.0) g/dL Microbiology - Last 24 Hours (Table) 06/05/23 17:31 Gram Stain - Final Hand - Left Wound Culture - Final Methicillin resist S. aureus 06/05/23 17:31 Anaerobic Culture - Preliminary Hand - Left 06/04/23 13:30 Blood Culture - Preliminary Blood 06/04/23 13:45 Blood Culture - Preliminary Blood Assessment and Plan (1) Abscess of left hand Current Visit: Yes Status: Acute Code(s): L02.512 - CUTANEOUS ABSCESS OF LEF T HAND SNOMED Code(s): 25063185765011033 (2) Infection of left hand Current Visit: Yes Status: Acute Code(s): L08.9 - LOCAL INFECTION OF THE SKIN AND SUBCUTANEOUS TISSUE, UNSP SNOMED Code(s): 906818120 (3) Sepsis Current Visit: Yes Status: Acute Code(s): A41.9 - SEPSIS, UNSPECIFIED ORGANISM SNOMED Code(s): 84860774 Plan: 1patient presented to hospital with sepsis in this patient noted a fever elevated white count source is a left hand abscess and will need to cover for the gram-positive skin venancio underlying gram-negative infection less likely but not entirely excluded 2-patient is status post surgical drainage and deep culture which are currently growing presumptive MRSA 3-patient to continue with the vancomycin, we will plan on getting a midline and a 10-day course of daptomycin on discharge Dictation was produced using [employer] dictation software. please excuse any grammatical, word or spelling errors. Time with Patient: Less than 30
[2023-06-09 09:26] VITALS: TEMP 97.9
[2023-06-09] MEDS: VANCOMYCIN TROUGH DUE 1 EACH MISC MISCELLANE ONE (10:58)
--- NOTE | 2023-06-09 11:58 | P.DS ---
Providers Date of admission: 06/04/23 13:30 Expected date of discharge: 06/09/23 Attending physician: Abbe Porras MD Consults: 06/04/23 13:28 Consult Physician Urgent Consulting Provider: Demian Pastor Consult Reason/Comments: Hand infection Do you want consulting provider notified?: Already Contacted 06/04/23 17:37 Consult Physician Urgent Consulting Provider: Iris Robbins Consult Reason/Comments: hand infection Do you want consulting provider notified?: Yes Primary care physician: Juan Atkinson Hospital Course: Discharge diagnoses; Acute severe left hand cellulitis with possible severe infection of the deep tissue extending to the left arm Sepsis with fever and leukocytosis Elevated inflammatory markers Nonadherence to management as he left AMA. Obesity Hospital course; Patient is admiteded with left hand swelling , on reviewing the records it looks like patient was at [facility] on 06/02/2023 for redness pain and swelling of the left hand of 2 days duration at that time. Also record indicates that patient left AMA that day. Patient seen and examined in the emergency room. Patient presents because of severe left hand swelling redness and difficulty moving sever finger and left wrist associated with milder swelling of the left forearm with mild erythema.patient states that his injury started 6-day ago prior to this hospitalization. 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 He cannot remember more details. He denies fever or chills. No chest pain dyspnea. He states he had diarrhea and vomiting 1 time each yesterday. He denies dysuria or urgency. No abdominal pain. No headache dizziness weakness or numbness. He denies smoking alcohol or illicit drugs 06/05/2023 Patient still complaining from left hand swelling redness and tenderness with limitation of movement Today showing some improvement compared to yesterday after he was started on IV vancomycin and Zosyn, slightly swollen there is a fluctuant area on the medial half of his palm. His left forearm is also less swollen Ultrasound of the upper extremity is negative for deep venous thrombosis, I reviewed the test by myself Patient remains on normal saline at 30 mL/h as well as broad-spectrum antibiotic Infectious disease was consulted Repeat labs this morning are still pending Patient also evaluated by orthopedic surgery team and plan for incision and debridement possibly today From medical perspective there is no absolute contraindication to proceed with surgical intervention , although there are some risks but benefits more than the risk. 06/05. Patient seen and examined. States left hand pain has improved. Denies any fever or chills. Denies nausea or vomiting 06/06. Patient seen and examined. Blood work done this morning showed sodium 141, potassium 3.8, BUN 14, creatinine 0.89, calcium 8.3,. States swelling of left hand has improved. 06/07. Patient seen and examined. Blood work done this morning showed sodium 139, potassium 4.2, BUN 17, creatinine 0.73. Currently on IV vancomycin 06/08. Patient seen examined. Discussed with ID, they recommend starting patient on IV antibiotics, midline being planned for today. Being discharged on daptomycin for 10 days per ID, prescription given by infectious disease. PHYSICAL EXAMINATION: GENERAL: The patient is alert and oriented x3, not in any acute distress. Well developed, well nourished. HEENT: Pupils are round and equally reacting to light. EOMI. No scleral icterus. No conjunctival pallor. Normocephalic, atraumatic. No pharyngeal erythema. No thyromegaly. CARDIOVASCULAR: S1 and S2 present. No murmurs, rubs, or gallops. PULMONARY: Chest is clear to auscultation, no wheezing or crackles. ABDOMEN: Soft, nontender, nondistended, normoactive bowel sounds. No palpable organomegaly. MUSCULOSKELETAL: Left hand bandage seen EXTREMITIES: No cyanosis, clubbing, or pedal edema. NEUROLOGICAL: Gross neurological examination did not reveal any focal deficits. SKIN: No rashes. Dictation was produced using [employer] dictation software. please excuse any grammatical, word or spelling errors. Plan - Discharge Summary New Discharge Prescriptions: New HYDROcodone/APAP 7.5-325MG [[place] 7.5-325] 1 each PO Q6HR PRN 3 Days #12 tab PRN Reason: Pain Scale 6 To 8 Continue Ibuprofen [Motrin] 800 mg PO QID PRN PRN Reason: Pain Discontinued Sulfamethox-Tmp 800-160Mg [Bactrim DS 800-160 mg] 2 tab PO Q12HR Discharge Medication List Ibuprofen [Motrin] 800 mg PO QID PRN 06/04/23 [History] HYDROcodone/APAP 7.5-325MG [[place] 7.5-325] 1 each PO Q6HR PRN 3 Days #12 tab 10/24 [Rx] Follow up Appointment(s)/Referral(s): Demian Pastor DO [Doctor of Osteopathic Medicine] - 06/13/23 2:45 pm [facility],Infusion [NON-STAFF] - 06/10/23 3:30 pm (Please call [facility] if you need to change your appointment. You will have infusions daily for 10 days.) Juan Atkinson [Primary Care Provider] - 06/12/23 11:30 am Iris Robbins MD [STAFF PHYSICIAN] - 06/18/23 1:15 pm Discharge Disposition: HOME SELF-CARE
[2023-06-09] MEDS: DAPTOmycin 350 MG in SODIUM CHLORIDE 0.9% 50 ML IVPB SCH (12:56)
--- NOTE | 2023-06-09 13:07 | P.PN ---
Subjective Progress Note Date: 06/09/23 Patient seen and examined. He is resting comfortably in the bedside chair eating. He notes improvement in his pain and range of motion in the finger tips. He underwent PICC line insertion earlier today. Objective - Vital Signs Vital signs: Vital Signs Temp 97.9 F 06/09/23 07:41 Pulse 81 06/09/23 07:41 Resp 18 06/09/23 07:41 BP 148/87 06/09/23 07:41 Pulse Ox 98 06/09/23 07:41 FiO2 Intake & Output 06/08/23 06/09/23 06/09/23 18:59 06:59 18:59 Output Total 200 Balance -200 Output: Urine 200 Other: # Voids 4 4 - Exam Incisions well approximated. Fibrous tissue present in palm with no active purulence. Able to flex all fingers without pain. Cap refill < 3 seconds. Sensation intact to light touch to all digits. - Labs CBC & Chem 7: 06/08/23 05:28 06/08/23 05:28 Labs: Microbiology - Last 24 Hours (Table) 06/05/23 17:31 Gram Stain - Final Hand - Left Wound Culture - Final Methicillin resist S. aureus Assessment and Plan Assessment: 1.) Left hand deep palmar abscess s/p I&D 06/05/23. Plan: Patient is stable from orthopedic hand surgery stand point with no signs of worsening or recurrence of infection. May continue warm soapy soaks for an additional 48 hours at home. Follow up in outpatient setting in 10 days.
[2023-06-09 14:27] VITALS: BP 164/94; PULSE 94; RESP 17
--- NOTE | 2023-06-09 14:50 | P.PN ---
Subjective Progress Note Date: 06/09/23 Principal diagnosis: Reason for follow-up is left hand abscess Patient is a 37-year-old male with past medical history significant for anxiety substance abuse presenting to the hospital for evaluation of left hand pain and swelling, patient be diagnosed with an abscess and the patient is status post surgical drainage of the left hand noland bursa and also open compar tment release on 06/05/2023. On today's visit that is 06/09/2023, patient has been afebrile, patient is breathing comfortably and is currently on room air, patient denies having any significant cough no chest pain shortness of breath, patient denies nausea vomiting or diarrhea and no abdominal pain, pain to the left hand has decreased in intensity. No new labs were obtained today blood culture negative local culture positive for MRSA Objective - Vital Signs Vital signs: Vital Signs Temp 97.9 F 06/09/23 07:41 Pulse 81 06/09/23 07:41 Resp 18 06/09/23 07:41 BP 148/87 06/09/23 07:41 Pulse Ox 98 06/09/23 07:41 FiO2 Intake & Output 06/08/23 06/09/23 06/09/23 18:59 06:59 18:59 Output Total 200 Balance -200 Output: Urine 200 Other: # Voids 4 4 - Exam GENERAL DESCRIPTION: Middle-age male lying in bed in no distress RESPIRATORY SYSTEM: Unlabored breathing , decreased breath sounds at bases HEART: S1 S2 regular rate and rhythm , ABDOMEN: Soft , no tenderness EXTREMITIES: Left hand swelling redness slightly decreased did have wound on the palmar aspect from surgical drainage - Labs CBC & Chem 7: 06/08/23 05:28 06/08/23 05:28 Labs: Microbiology - Last 24 Hours (Table) 06/05/23 17:31 Gram Stain - Final Hand - Left Wound Culture - Final Methicillin resist S. aureus Assessment and Plan (1) Abscess of left hand Current Visit: Yes Status: Acute Code(s): L02.512 - CUTANEOUS ABSCESS OF LEFT HAND SNOMED Code(s): 11186198743487872 (2) Infection of left hand Current Visit: Yes Status: Acute Code(s): L08.9 - LOCAL INFECTION OF THE SKIN AND SUBCUTANEOUS TISSUE, UNSP SNOMED Code(s): 043138310 (3) Sepsis Current Visit: Yes Status: Acute Code(s): A41.9 - SEPSIS, UNSPECIFIED ORGANISM SNOMED Code(s): 75848425 Plan: 1patient presented to hospital with sepsis in this patient noted a fever elevated white count source is a left hand abscess and will need to cover for the gram-positive skin venancio underlying gram-negative infection less likely but not entirely excluded 2-patient is status post surgical drainage and deep culture which are currently growing presumptive MRSA, blood culture negative 3-patient antibiotic will be switched over to daptomycin he will receive a dose today and then continue in the outpatient setting for 10 days and close outpatient follow-up local care to continue per surgery Dictation was produced using [employer] dictation software. please excuse any grammatical, word or spelling errors. Time with Patient: Less than 30
== END 2023-06-09 14:55 | disposition home or self-care (01) | DRG 710 ==
LOC: OR 13:03 → 4SSUR 13:30
PROVIDERS: ADMIT Internal Medicine; ATTEND Internal Medicine
PROC: 01N50ZZ Release Median Nerve, Open Approach (ICD-10-PCS; 2023-06-05)
PROC: 0J9K0ZZ Drainage of Left Hand Subcutaneous Tissue and Fascia, Open Approach (ICD-10-PCS; principal; 2023-06-05 07:30)
DX: A41.02 Sepsis due to Methicillin resistant Staphylococcus aureus (principal); F11.21 Opioid dependence, in remission; E66.9 Obesity, unspecified; G89.29 Other chronic pain; F15.91 Other stimulant use, unspecified, in remission; L02.512 Cutaneous abscess of left hand; L03.114 Cellulitis of left upper limb; Z68.33 Body mass index [BMI] 33.0-33.9, adult; S32.029S Unspecified fracture of second lumbar vertebra, sequela; Z91.198 Patient's noncompliance with other medical treatment and regimen for other reason
CPT/HCPCS: 36410; 76937; 80048; 80053; 80202; 80306; 83605; 85025; 85610; 85652; 85730; 86140; 87040; 87070; 87075; 87077; 87186; 87205; 93005; 96361; 96365; 96375; 96376; 99285

== ENCOUNTER → 2023-06-10 | Outpatient (CLI) | payer OTHER ==
[2023-06-10 18:41] LABS: Basophils # (A) 0.15 X 10*3/uL (0.00-0.10); Basophils % (A) 1.7 %; Eosinophils % (A) 3.5 %; HCT 49.1 % (39.6-50.0); HGB 15.7 g/dL (13.0-17.0); Lymphocytes # (A) 1.32 X 10*3/uL (0.90-5.00); Lymphocytes % (A) 15.3 %; MCH 29.3 pg (27.0-32.0); MCV 91.6 FL (80.0-97.0); Mean Platelet Volume 9.6 FL (9.5-12.2); Monocytes # (A) 0.91 X 10*3/uL (0.20-1.00); Monocytes % (A) 10.6 %; NRBC Per 100 WBC 0 X 10*3/uL (0.00-0.01); Neutrophils % (A) 66.2 %; Platelet Count 331 X 10*3/uL (140-440); RBC 5.36 X 10*6/uL (4.40-5.60); RDW 12.7 % (11.5-14.5); WBC 8.61 X 10*3/uL (4.50-10.00)
[2023-06-10 18:56] LABS: ALT 167 U/L (10-49); AST 110 U/L (14-35); Albumin 3.9 g/dL (3.8-4.9); Albumin/Globulin Ratio 1.22 Ratio (1.60-3.17); Alkaline Phosphatase 71 U/L (41-126); BUN/Creat Ratio 16.25 Ratio (12.00-20.00); Calcium 9.4 mg/dL (8.7-10.3); Carbon Dioxide 23.6 mmol/L (21.6-31.8); Chloride 105 mmol/L (96-109); Globulin 3.2 g/dL (1.6-3.3); Glucose 112 mg/dL (70-110); Potassium 4.4 mmol/L (3.5-5.5); Sodium 140 mmol/L (135-145); Total Bilirubin 0.2 mg/dL (0.3-1.2); Total Protein 7.1 g/dL (6.2-8.2)
[2023-06-10 20:49] LABS: INR 1.03 sec (0.93-1.11); Prothrombin Time 11.1 sec (9.9-11.9)
[2023-06-11 00:54] LABS: Hepatitis A Antibody IgM Nonreactive (Nonreactive); Hepatitis B Core IgM Nonreactive (Nonreactive); Hepatitis C IgG Antibody Reactive (Nonreactive)
[2023-06-11 01:42] LABS: Hepatitis B Surface Antigen Nonreactive (Nonreactive)
[2023-06-12 10:35] LABS: HCV Qualitative Result DETECTED (Not detected); HCV Quant Log 5.09 (<1.08)
== END | disposition home or self-care (01) ==
LOC: LABWHC1 14:18
PROVIDERS: ATTEND Internal Medicine Gastroenterology
DX: B18.2 Chronic viral hepatitis C (principal)
CPT/HCPCS: 36415; 80053; 80074; 81596; 82105; 85025; 85610; 87340; 87522

== ENCOUNTER → 2023-06-19 | Outpatient (CLI) | payer OTHER ==
--- NOTE | 2023-06-19 14:40 | US ---
EXAMINATION TYPE: US liver DATE OF EXAM: 06/19/2023 COMPARISON: 10/08/2019 CLINICAL INDICATION: Male, 37 years old with history of B18.2 CHRONIC VIRAL HEPATITIS C; Hep C TECHNIQUE: Multiple sonographic images of the right upper quadrant are obtained. FINDINGS: EXAM MEASUREMENTS: Liver Length: 15.1 cm Gallbladder Wall: 0.2 cm CBD: 0.3 cm Right Kidney: 11.9x4.4x4.6 cm SACK CLEANING HAND NOTES: Pancreas: hypoechoic area again noted measuring 1.9x1.1x1.9cm today Liver: wnl Gallbladder: wnl Evidence for sonographic Bush's sign: No CBD: wnl Right Kidney: No hydronephrosis or masses seen exam limited by bowel gas and body habitus IMPRESSION: 1. No hepatomegaly or focal liver mass. 2. Persistent 1.9 cm hypoechoic mass in the body of the pancreas. CT of the abdomen and pelvis is rec ommended to further characterize. 3. Unremarkable gallbladder and biliary tree.
== END | disposition home or self-care (01) ==
LOC: RADUSWWP 10:05
PROVIDERS: ATTEND Internal Medicine Gastroenterology
DX: K86.89 Other specified diseases of pancreas (principal); B18.2 Chronic viral hepatitis C
CPT/HCPCS: 76705

== ENCOUNTER → 2023-08-18 | Outpatient (CLI) | payer OTHER ==
--- NOTE | 2023-08-20 15:49 | MR ---
EXAMINATION TYPE: MR abdomen wo/w con DATE OF EXAM: 08/18/2023 6:18 PM CLINICAL INDICATION:Male, 38 years old with history of K86.89 OTHER SPECIFIED DISEASES OF PANCREAS; P HH, Abnormal CT, Pancreas mass COMPARISON: Ultrasound 06/19/2023 TECHNIQUE: Multiplanar multi-sequence imaging was performed without contrast. Post contrast imaging was performed. Post IV contrast subtraction images were also submitted for review. IV Contrast: 10 cc Gadavist FINDINGS: LOWER CHEST: No gross irregularity. ABDOMEN Liver: No evidence for hepatic steatosis or cirrhosis. Right hepatic lobe high T2 signal 19 mm lesion which does not definitively have postcontrast enhancement. Findings favor cyst. Gallbladder and Bile ducts: No evidence for ductal dilation, or biliary stricture or evidence of chol edocholithiasis. The gallbladder is within normal limits. Pancreas: No ductal dilation. No evidence for solid mass. Spleen: Normal for size. Adrenal glands: Unremarkable. Kidneys: No evidence for obstructive uropathy. No suspicious renal masses. Stomach and Bowel: No evidence for bowel wall thickening or evidence for obstruction. Retroperitoneum/Peritoneum: No evidence of pneumoperitoneum or free fluid. Vasculature: No aortic aneurysm. Musculoskeletal: The osseous structures appear intact. Lymph Nodes: No gross evidence for lymphadenopathy. Abdominal wall: Right chest wall susceptibility artifact possibly from prior surgical intervention. IMPRESSION: 1. No pancreatic masses definitively visualized, no comparisons available at the time of interpretat ion. 2. Simple appearing hepatic cyst.
== END | disposition home or self-care (01) ==
LOC: RADMRIMAIN 17:11
PROVIDERS: ATTEND Internal Medicine Gastroenterology
DX: K86.89 Other specified diseases of pancreas (principal); K76.89 Other specified diseases of liver
CPT/HCPCS: 74183; A9585